=== PATIENT | male | born 1970 | race Caucasian/White ===

== ENCOUNTER 2018-05-14 12:23 | Emergency (ER) | payer MEDICAID ==
[~2018-05-14] VITALS: Ht 165.1 cm; Wt 72.7 kg
[~2018-05-14 12:23] MED LIST: GABA-531 PO; INSLAN SQ; METF-960 PO; RISP3 PO
[2018-05-14 12:42] VITALS: BP 133/91
[2018-05-14 12:54] LABS: GLUCOSE,POINT OF CARE 476 MG/DL (70-110)
== END 2018-05-14 16:02 | disposition left against medical advice (07) ==
LOC: EMS 12:24
DX: M79.601 Pain in right arm (principal); R51 Headache; F17.210 Nicotine dependence, cigarettes, uncomplicated; F19.90 Other psychoactive substance use, unspecified, uncomplicated; F11.90 Opioid use, unspecified, uncomplicated; F15.90 Other stimulant use, unspecified, uncomplicated; Z53.21 Procedure and treatment not carried out due to patient leaving prior to being seen by health care provider

== ENCOUNTER 2020-04-22 12:01 | Emergency (ER) | payer MEDICAID ==
[~2020-04-22] VITALS: Ht 170.2 cm; Wt 72.7 kg
[~2020-04-22 12:01] MED LIST changes: +BACTDSB PO; -GABA-531 PO; -METF-960 PO; -RISP3 PO; +RISP3TAB14 PO
[2020-04-22] MEDS ORDERED: GLIP5 PO (12:07)
[2020-04-22] MEDS ORDERED: METO25 PO (12:07)
[2020-04-22] MEDS ORDERED: METF-960 PO (12:07)
[2020-04-22] MEDS ORDERED: SIMV-259 PO (12:07)
[2020-04-22] MEDS ORDERED: RISP0.5T20 PO (12:07)
[2020-04-22 14:35] LABS: BASOPHILS % (AUTO) 0.6 % (0.0-2.0); EOSINOPHILS % (AUTO) 0.6 % (1.0-6.0); HEMATOCRIT 38.4 % (41-53); LYMPHOCYTES # (AUTO) 1.9 K/uL (1.0-4.8); LYMPHOCYTES % (AUTO) 18.3 % (22.0-44.0); MEAN CORPUSCULAR HEMOGLOBIN 30.5 pg (26.0-34.0); MEAN CORPUSCULAR HGB CONC 33.8 G/dL (31.0-37.0); MEAN CORPUSCULAR VOLUME 90 fL (80-100); MONOCYTES # (AUTO) 0.8 K/uL (0.1-1.0); MONOCYTES % (AUTO) 7.6 % (2.0-9.0); NEUTROPHILS # (AUTO) 7.4 K/uL (1.8-7.7); NEUTROPHILS % (AUTO) 72.9 % (40.0-70.0); PLATELET COUNT (AUTO) 315 K/uL (150-450); RED BLOOD CELL COUNT(AUTO) 4.26 MIL/uL (4.50-5.90); RED CELL DISTRIBUTION WIDTH 14.1 % (11.5-14.5)
[2020-04-22] MEDS ORDERED: SODIUM CHLORIDE 0.9% 2,200 ML IV ONE (14:42)
[2020-04-22] MEDS ORDERED: 0.9% SODIUM CHLORIDE 10 ML SYRINGE IVP PRN (14:45)
[2020-04-22 14:58] LABS: ALANINE AMINOTRANSFERASE 24 U/L (12-78); ALBUMIN 4.2 g/dL (3.4-5.0); ALKALINE PHOSPHATASE 91 U/L (46-116); ANION GAP 7 mmol/L (8-16); ASPARTATE AMINOTRANSFERASE 19 U/L (15-37); BILIRUBIN,TOTAL 0.5 mg/dL (0.1-1.0); CALCIUM, TOTAL 9.2 mg/dL (8.8-10.5); CARBON DIOXIDE 30 mmol/L (22-29); CHLORIDE 91 mmol/L (98-107); CREATININE 1.21 mg/dL (0.60-1.30); GLOMERULAR FILTR. RATE CALC > 60 mL/min (>60); SODIUM SERUM 128 mmol/L (136-145); TOTAL PROTEIN, SERUM 8.5 g/dL (6.4-8.2); UREA NITROGEN, BLOOD 16 mg/dL (7-18)
[2020-04-22] MEDS ORDERED: HALOPERIDOL LACTATE 5 MG/ML VIAL IM ONE (15:00)
[2020-04-22] MEDS ORDERED: LORazepam 2 MG/ML VIAL IM ONE (15:00)
[2020-04-22] MEDS ORDERED: DiphenhydrAMINE HCL 50 MG/ML VIAL IM ONE (15:00)
[2020-04-22 15:03] LABS: GLUCOSE,RANDOM 440 mg/dL (70-110)
[2020-04-22 15:17] LABS: INR 0.9 (0.9-1.1); PROTHROMBIN TIME 9.8 SEC (9.4-11.6)
[2020-04-22 15:26] LABS: B-TYPE NATRIURETIC PEPTIDE 11 pg/mL (0-100)
[2020-04-22 15:28] LABS: ACETONE,BLOOD NEGATIVE (NEGATIVE)
[2020-04-22 15:34] LABS: CREATINE KINASE, TOTAL ONLY 357 U/L (39-308)
[2020-04-22] MEDS ORDERED: INSULIN REGULAR, HUMAN 100 UNITS/ML SQ ONE (15:45)
[2020-04-22 16:13] LABS: GLUCOSE,POINT OF CARE 313 MG/DL (70-110)
[2020-04-22 16:43] LABS: APPEARANCE,URINE CLEAR (CLEAR); BILIRUBIN,URINE NEGATIVE (NEGATIVE); GLUCOSE, URINE (UA) >=1000 mg/dL (NEGATIVE); KETONES,URINE TRACE mg/dL (NEGATIVE); LEUKOCYTE ESTERASE ,URINE NEGATIVE (NEGATIVE); NITRATE,URINE NEGATIVE (NEGATIVE); OCCULT BLOOD,URINE NEGATIVE (NEGATIVE); PH,URINE 5.5 (5.0-8.0); PROTEIN,URINE NEGATIVE (NEGATIVE); UROBILINOGEN,URINE 0.2 mg/dL (<=1.0)
[2020-04-22 16:53] LABS: BACTERIA,URINE Rare /HPF (None Seen); RBC,URINE 0-2 /HPF (0-2); SQUAMOUS EPITHELIAL CELL,UR Rare /LPF (None Seen); WBC,URINE 0-2 /HPF (0-5)
[2020-04-22 16:55] LABS: AMPHET/METH SCREEN,URINE POSITIVE (NEGATIVE); BARBITURATE SCREEN, URINE NEGATIVE (NEGATIVE); BENZODIAZEPINES SCREEN,URINE NEGATIVE (NEGATIVE); CANNABINOID SCREEN,URINE NEGATIVE (NEGATIVE); COCAINE SCREEN,URINE NEGATIVE (NEGATIVE); METHADONE SCREEN, URINE NEGATIVE (NEGATIVE); OPIATE SCREEN,URINE NEGATIVE (NEGATIVE)
[2020-04-22 16:56] LABS: PHENCYCLIDINE SCREEN,URINE NEGATIVE (NEGATIVE)
[2020-04-22 18:04] VITALS: BP 138/80
[2020-04-22 19:34] LABS: GLUCOSE,POINT OF CARE 263 MG/DL (70-110)
== END 2020-04-22 18:44 | disposition home or self-care (01) ==
LOC: EMS 12:06
DX: E11.65 Type 2 diabetes mellitus with hyperglycemia (principal); E11.621 Type 2 diabetes mellitus with foot ulcer; E78.00 Pure hypercholesterolemia, unspecified; F17.210 Nicotine dependence, cigarettes, uncomplicated; F15.90 Other stimulant use, unspecified, uncomplicated; F11.90 Opioid use, unspecified, uncomplicated; Z79.84 Long term (current) use of oral hypoglycemic drugs; Z79.899 Other long term (current) drug therapy
CPT/HCPCS: 36415; 71045; 80053; 80307; 81001; 82009; 82550; 82962; 83880; 84484; 85025; 85610; 93005; 96360; 96372; 99285; J1815; 96361; 96374

== ENCOUNTER 2021-11-09 13:27 | Emergency (ER) | payer OTHER ==
[~2021-11-09] VITALS: Ht 160 cm; Wt 72.7 kg
[~2021-11-09 13:27] MED LIST changes: -BACTDSB PO; +GLIP5 PO; -INSLAN SQ; +METF-1211 PO; +METO25 PO; +RISP0.5T39 PO; -RISP3TAB14 PO; +SIMV-259 PO
[2021-11-09 14:05] LABS: BASOPHILS % (AUTO) 0.5 % (0.0-2.0); EOSINOPHILS % (AUTO) 1.3 % (1.0-6.0); HEMOGLOBIN 14.6 g/dL (13.5-17.5); LYMPHOCYTES # (AUTO) 1.4 K/uL (1.0-4.8); LYMPHOCYTES % (AUTO) 17.4 % (22.0-44.0); MEAN CORPUSCULAR HEMOGLOBIN 30.3 pg (26.0-34.0); MEAN CORPUSCULAR HGB CONC 34.1 G/dL (31.0-37.0); MEAN CORPUSCULAR VOLUME 89 fL (80-100); MONOCYTES # (AUTO) 0.5 K/uL (0.1-1.0); MONOCYTES % (AUTO) 6.8 % (2.0-9.0); NEUTROPHILS # (AUTO) 5.9 K/uL (1.8-7.7); PLATELET COUNT (AUTO) 267 K/uL (150-450); RED BLOOD CELL COUNT(AUTO) 4.84 MIL/uL (4.50-5.90)
[2021-11-09 14:14] LABS: ANION GAP 11 mmol/L (8-16); CALCIUM, TOTAL 9.1 mg/dL (8.8-10.5); CARBON DIOXIDE 25 mmol/L (22-29); CHLORIDE 103 mmol/L (98-107); GLOMERULAR FILTR. RATE CALC > 60 mL/min (>60); GLUCOSE,RANDOM 120 mg/dL (70-110); POTASSIUM 4.1 mmol/L (3.5-5.1); SODIUM SERUM 139 mmol/L (136-145); UREA NITROGEN, BLOOD 6 mg/dL (7-18)
[2021-11-09 14:20] LABS: ALANINE AMINOTRANSFERASE 15 U/L (12-78); ALBUMIN 3.7 g/dL (3.4-5.0); ALKALINE PHOSPHATASE 109 U/L (46-116); ASPARTATE AMINOTRANSFERASE 17 U/L (15-37); BILIRUBIN,TOTAL 0.3 mg/dL (0.1-1.0); TOTAL PROTEIN, SERUM 7.9 g/dL (6.4-8.2)
[2021-11-09] MEDS ORDERED: DiphenhydrAMINE HCL 25 MG CAPSULE PO ONE (15:45)
[2021-11-09 15:55] VITALS: BP 134/84
== END 2021-11-09 16:26 | disposition home or self-care (01) ==
LOC: EMS 13:27
DX: F20.9 Schizophrenia, unspecified (principal); E11.9 Type 2 diabetes mellitus without complications; E78.00 Pure hypercholesterolemia, unspecified; I10 Essential (primary) hypertension; F17.210 Nicotine dependence, cigarettes, uncomplicated; F12.90 Cannabis use, unspecified, uncomplicated; F19.90 Other psychoactive substance use, unspecified, uncomplicated; Z79.84 Long term (current) use of oral hypoglycemic drugs; Z88.8 Allergy status to other drugs, medicaments and biological substances
CPT/HCPCS: 36415; 80053; 85025; 99284; G0480

== ENCOUNTER 2023-03-23 14:55 | Inpatient (IN) | payer MEDICAID, OTHER ==
[~2023-03-23] VITALS: Ht 157.5 cm; Wt 83.0 kg
[~2023-03-23 14:55] MED LIST changes: -GLIP5 PO; +GLIP5TAB16 PO
[2023-03-23 15:52] LABS: BASOPHILS % (AUTO) 0.4 % (0.0-2.0); EOSINOPHILS % (AUTO) 1.1 % (1.0-6.0); HEMOGLOBIN 13.9 g/dL (13.5-17.5); LYMPHOCYTES # (AUTO) 1.4 K/uL (1.0-4.8); LYMPHOCYTES % (AUTO) 22.9 % (22.0-44.0); MEAN CORPUSCULAR HEMOGLOBIN 31.6 pg (26.0-34.0); MEAN CORPUSCULAR HGB CONC 33.9 G/dL (31.0-37.0); MEAN CORPUSCULAR VOLUME 93 fL (80-100); MONOCYTES # (AUTO) 0.4 K/uL (0.1-1.0); MONOCYTES % (AUTO) 6.6 % (2.0-9.0); NEUTROPHILS # (AUTO) 4.3 K/uL (1.8-7.7); PLATELET COUNT (AUTO) 209 K/uL (150-450); RED CELL DISTRIBUTION WIDTH 13.7 % (11.5-14.5); WHITE BLOOD COUNT (AUTO) 6.2 K/uL (4.5-11.0)
[2023-03-23 16:03] LABS: ANION GAP 10 mmol/L (8-16); CALCIUM, TOTAL 8.7 mg/dL (8.8-10.5); CARBON DIOXIDE 25 mmol/L (22-29); CHLORIDE 100 mmol/L (98-107); CREATININE 1.03 mg/dL (0.60-1.30); GLOMERULAR FILTR. RATE CALC > 60 mL/min (>60); GLUCOSE,RANDOM 216 mg/dL (70-110); POTASSIUM 3.9 mmol/L (3.5-5.1); SODIUM SERUM 135 mmol/L (136-145); UREA NITROGEN, BLOOD 10 mg/dL (7-18)
[2023-03-23 16:08] LABS: ALCOHOL, BLOOD (SERUM) < 3 mg/dL (0-10)
[2023-03-23 16:09] LABS: ALANINE AMINOTRANSFERASE 15 U/L (12-78); ALBUMIN 3.8 g/dL (3.4-5.0); ALKALINE PHOSPHATASE 67 U/L (46-116); ASPARTATE AMINOTRANSFERASE 18 U/L (15-37); BILIRUBIN,TOTAL 0.4 mg/dL (0.1-1.0); TOTAL PROTEIN, SERUM 7.1 g/dL (6.4-8.2)
[2023-03-23 16:45] LABS: COVID AG,FIA SOURCE NASOPHARYNGEAL
[2023-03-23] MEDS: LORazepam 2 MG TABLET PO ONE (16:57)
[2023-03-23] MEDS: RisperiDONE 1 MG TABLET PO ONE (16:58)
[2023-03-23 17:05] LABS: SARS-COV2 (COVID) ANTIGEN,FIA Negative (Negative)
[2023-03-23] MEDS ORDERED: HALOPERIDOL 5 MG TABLET PO PRN (17:30)
[2023-03-23 21:26] LABS: GLUCOMETER DEV NAME(LOC) BV3N.; GLUCOSE,POINT OF CARE 193 MG/DL (70-110)
[2023-03-24 08:30] VITALS: BP 114/60; PULSE 95; RESP 17; TEMP 97.2; O2SAT 98
[2023-03-24] MEDS: METOPROLOL TARTRATE 25 MG TABLET PO SCH (08:49)
[2023-03-24 09:11] VITALS: BP 114/60; PULSE 95; RESP 17; TEMP 97.2; O2SAT 98
[2023-03-24] MEDS: LORazepam 2 MG TABLET PO PRN (10:02)
[2023-03-24] MEDS ORDERED: QUET200T30 PO (13:50)
[2023-03-24] MEDS ORDERED: DIVA-112 PO (13:50)
[2023-03-24] MEDS ORDERED: METO-408 PO (14:11)
[2023-03-24] MEDS ORDERED: INSU100V45 SQ (14:11)
[2023-03-24] MEDS ORDERED: ATOR40TA71 PO (14:11)
[2023-03-24] MEDS ORDERED: METF-446 PO (14:11)
[2023-03-24] MEDS ORDERED: DULA0.75 SQ (14:11)
[2023-03-24] MEDS ORDERED: LISI10TA24 PO (14:11)
[2023-03-24] MEDS ORDERED: INSU100I26 SQ (14:11)
[2023-03-24] MEDS: MetFORMIN HCL 500 MG TABLET PO SCH (16:48)
[2023-03-24] MEDS ORDERED: ONDANSETRON HCL 4 MG TABLET PO PRN (18:45)
[2023-03-24] MEDS ORDERED: GuaiFENesin/D-METHORPHAN [SUGAR-FREE] 200-20MG/10 ML SYRUP UDCUP PO PRN (18:45)
[2023-03-24] MEDS ORDERED: CloNIDine HCL 0.1 MG TABLET PO PRN (18:45)
[2023-03-24] MEDS: SIMVASTATIN 10 MG TABLET PO SCH (20:36)
[2023-03-24] MEDS: QUEtiapine FUMARATE 200 MG TABLET PO SCH (20:37)
[2023-03-24] MEDS: DIVALPROEX SODIUM 500 MG DR TABLET PO SCH (20:37)
[2023-03-24 20:46] VITALS: BP 123/65; PULSE 82; RESP 18; TEMP 97.7; O2SAT 98
[2023-03-25] MEDS: GlipiZIDE 5 MG TABLET PO SCH (06:45)
[2023-03-25 06:51] LABS: GLUCOMETER DEV NAME(LOC) BV3N.; GLUCOSE,POINT OF CARE 208 MG/DL (70-110)
[2023-03-25 07:48] LABS: HEMOGLOBIN A1C 8.8 % (3.8-5.6)
[2023-03-25 08:04] LABS: CHOL/HDL RATIO 2.7 (4.2-7.3); THYROID STIMULATING HORMONE 1.22 uIU/mL (0.36-3.74)
[2023-03-25 09:01] VITALS: BP 114/76; PULSE 89; RESP 20; TEMP 98.2; O2SAT 99
[2023-03-25 20:19] VITALS: BP 109/65; PULSE 102; RESP 19; TEMP 98.2; O2SAT 97
[2023-03-26 06:51] LABS: GLUCOMETER DEV NAME(LOC) BV3N.; GLUCOSE,POINT OF CARE 253 MG/DL (70-110)
[2023-03-26 08:16] VITALS: BP 111/60; PULSE 92; RESP 17; TEMP 98; O2SAT 99
[2023-03-26 20:15] VITALS: BP 111/64; PULSE 70; RESP 18; TEMP 98; O2SAT 97
[2023-03-27] MEDS: PNEUMOCOCCAL VACCINE POLYVALENT 0.5 ML VIAL [PPSV23] IM. ONE (06:30)
[2023-03-27 06:36] LABS: GLUCOMETER DEV NAME(LOC) BV3N.; GLUCOSE,POINT OF CARE 140 MG/DL (70-110)
[2023-03-27 09:09] VITALS: BP 109/56; PULSE 80; RESP 17; TEMP 97.2; O2SAT 99
[2023-03-27 20:22] VITALS: BP 104/71; PULSE 92; RESP 18; TEMP 98.2; O2SAT 97
[2023-03-28 06:36] LABS: GLUCOMETER DEV NAME(LOC) BV3N.; GLUCOSE,POINT OF CARE 119 MG/DL (70-110)
[2023-03-28 09:04] VITALS: BP 110/67; PULSE 95; RESP 19; TEMP 98.1; O2SAT 98
[2023-03-28] MEDS ORDERED: ChlorproMAZINE HCL 50 MG/2 ML AMP ONE (15:47)
[2023-03-28] MEDS ORDERED: LORazepam 2 MG/ML VIAL ONE (15:47)
[2023-03-28] MEDS: LORazepam 2 MG/ML VIAL IM ONE (16:00)
[2023-03-28] MEDS: ChlorproMAZINE HCL 50 MG/2 ML AMP IM ONE (16:00)
[2023-03-28 20:30] VITALS: RESP 18
[2023-03-29 06:31] LABS: GLUCOMETER DEV NAME(LOC) BV3N.; GLUCOSE,POINT OF CARE 206 MG/DL (70-110)
[2023-03-29 08:47] VITALS: BP 110/66; PULSE 80; RESP 17; TEMP 97.8; O2SAT 99
[2023-03-29] MEDS: ZOLPIDEM TARTRATE 10 MG TABLET PO PRN (20:48)
[2023-03-29 21:19] VITALS: BP 105/83; PULSE 100; TEMP 98; O2SAT 98
[2023-03-30 08:47] VITALS: BP 101/71; PULSE 105; RESP 17; TEMP 97.6; O2SAT 98
[2023-03-30] MEDS: NICOTINE 14 MG/24 HOUR PATCH TD PRN (16:39)
[2023-03-30 21:01] VITALS: BP 130/70; PULSE 90; RESP 18; TEMP 97.8; O2SAT 97
[2023-03-31 08:22] VITALS: BP 105/74; PULSE 93; RESP 17; TEMP 97.9; O2SAT 100
[2023-03-31 20:55] VITALS: BP 109/75; PULSE 104; RESP 18; TEMP 98; O2SAT 98
[2023-04-01 06:51] LABS: GLUCOMETER DEV NAME(LOC) BV3N.; GLUCOSE,POINT OF CARE 260 MG/DL (70-110)
[2023-04-01 08:40] VITALS: BP 112/70; PULSE 70; RESP 18; TEMP 98; O2SAT 95
[2023-04-01 11:06] LABS: GLUCOMETER DEV NAME(LOC) BV3N.; GLUCOSE,POINT OF CARE 329 MG/DL (70-110)
[2023-04-01 16:51] LABS: GLUCOMETER DEV NAME(LOC) BV3N.; GLUCOSE,POINT OF CARE 287 MG/DL (70-110)
[2023-04-01 20:39] VITALS: BP 118/73; PULSE 100; RESP 18; TEMP 97; O2SAT 99
[2023-04-02 06:31] LABS: GLUCOMETER DEV NAME(LOC) BV3N.; GLUCOSE,POINT OF CARE 196 MG/DL (70-110)
[2023-04-02 08:27] VITALS: RESP 18
[2023-04-02 08:39] VITALS: BP 110/68; PULSE 91; RESP 18; TEMP 98.1; O2SAT 99
[2023-04-02 16:46] LABS: GLUCOMETER DEV NAME(LOC) BV3N.; GLUCOSE,POINT OF CARE 281 MG/DL (70-110)
[2023-04-02 22:49] VITALS: BP 128/70; PULSE 96; RESP 18; TEMP 98.2
[2023-04-03 06:41] LABS: GLUCOMETER DEV NAME(LOC) BV3N.; GLUCOSE,POINT OF CARE 106 MG/DL (70-110)
[2023-04-03 08:30] VITALS: BP 112/77; PULSE 100; RESP 17; TEMP 96.8; O2SAT 98
[2023-04-03 20:22] VITALS: BP 136/82; PULSE 93; RESP 18; TEMP 97.7; O2SAT 98
[2023-04-04 06:46] LABS: GLUCOMETER DEV NAME(LOC) BV3N.; GLUCOSE,POINT OF CARE 124 MG/DL (70-110)
[2023-04-04 08:37] VITALS: BP 143/79; PULSE 94; RESP 17; TEMP 97.6; O2SAT 99
[2023-04-04 16:51] LABS: GLUCOMETER DEV NAME(LOC) BV3N.; GLUCOSE,POINT OF CARE 165 MG/DL (70-110)
[2023-04-04 20:20] VITALS: BP 118/70; PULSE 90; RESP 18; TEMP 98; O2SAT 98
[2023-04-05 06:41] LABS: GLUCOMETER DEV NAME(LOC) BV3N.; GLUCOSE,POINT OF CARE 217 MG/DL (70-110)
[2023-04-05 08:16] VITALS: BP 101/60; PULSE 82; RESP 17; TEMP 97.5; O2SAT 99
[2023-04-05] MEDS: LORazepam 2 MG TABLET PO PRN (16:34)
[2023-04-05 20:21] VITALS: BP 127/76; PULSE 76; RESP 18; TEMP 97.6; O2SAT 98
[2023-04-05] MEDS: ZOLPIDEM TARTRATE 10 MG TABLET PO PRN (20:32)
[2023-04-06 06:32] LABS: GLUCOMETER DEV NAME(LOC) BV3N.; GLUCOSE,POINT OF CARE 202 MG/DL (70-110)
[2023-04-06 08:07] VITALS: BP 103/76; PULSE 83; RESP 18; TEMP 97.6; O2SAT 98
[2023-04-06 08:27] VITALS: BP 103/76; PULSE 83; RESP 18; TEMP 97.6; O2SAT 98
[2023-04-06] MEDS: ACETAMINOPHEN 325 MG TABLET PO PRN (17:25)
[2023-04-06 17:26] VITALS: RESP 18
[2023-04-06 18:25] VITALS: RESP 18
[2023-04-06 20:33] VITALS: BP 112/71; PULSE 111; RESP 19; TEMP 97.6; O2SAT 100
[2023-04-07 06:41] LABS: GLUCOMETER DEV NAME(LOC) BV3N.; GLUCOSE,POINT OF CARE 122 MG/DL (70-110)
[2023-04-07 08:22] VITALS: BP 109/69; PULSE 80; RESP 17; TEMP 97.8; O2SAT 96
[2023-04-07 17:06] LABS: GLUCOMETER DEV NAME(LOC) BV3N.; GLUCOSE,POINT OF CARE 326 MG/DL (70-110)
[2023-04-07 20:48] VITALS: BP 108/69; PULSE 100; RESP 17; TEMP 97.8; O2SAT 98
[2023-04-08 06:41] LABS: GLUCOMETER DEV NAME(LOC) BV3N.; GLUCOSE,POINT OF CARE 117 MG/DL (70-110)
[2023-04-08 08:16] VITALS: BP 118/74; PULSE 85; RESP 17; TEMP 98.1; O2SAT 100
[2023-04-08] MEDS: ALBUTEROL SULFATE HFA 90 MCG/PUFF 8 GM INHALER IH PRN (16:38)
[2023-04-08 20:20] VITALS: BP 124/77; PULSE 95; RESP 18; TEMP 97.8; O2SAT 98
[2023-04-09 06:21] LABS: GLUCOMETER DEV NAME(LOC) BV3N.; GLUCOSE,POINT OF CARE 110 MG/DL (70-110)
[2023-04-09 20:35] VITALS: BP 115/72; PULSE 91; RESP 18; TEMP 97.9
[2023-04-10 06:36] LABS: GLUCOMETER DEV NAME(LOC) BV3N.; GLUCOSE,POINT OF CARE 124 MG/DL (70-110)
[2023-04-10 08:20] VITALS: BP 100/60; PULSE 78; RESP 17; TEMP 97.7; O2SAT 99
[2023-04-10 20:23] VITALS: BP 129/75; PULSE 90; RESP 19; TEMP 97.8; O2SAT 100
[2023-04-11 05:57] LABS: GLUCOMETER DEV NAME(LOC) BV3N.; GLUCOSE,POINT OF CARE 112 MG/DL (70-110)
[2023-04-11 08:27] VITALS: BP 134/76; PULSE 88; RESP 18; TEMP 98.1; O2SAT 100
[2023-04-11 09:43] VITALS: BP 102/69; PULSE 101; RESP 18; TEMP 97.6; O2SAT 98
[2023-04-11 17:01] LABS: GLUCOMETER DEV NAME(LOC) BV3N.; GLUCOSE,POINT OF CARE 162 MG/DL (70-110)
[2023-04-11 20:14] VITALS: BP 136/81; PULSE 84; RESP 18; TEMP 97.9; O2SAT 97
[2023-04-12 06:12] LABS: GLUCOMETER DEV NAME(LOC) BV3N.; GLUCOSE,POINT OF CARE 181 MG/DL (70-110)
[2023-04-12 08:07] VITALS: BP 102/70; PULSE 78; RESP 17; TEMP 97; O2SAT 99
[2023-04-12 21:17] VITALS: BP 119/82; PULSE 80; RESP 18; TEMP 97.2
[2023-04-13 06:36] LABS: GLUCOMETER DEV NAME(LOC) BV3N.; GLUCOSE,POINT OF CARE 203 MG/DL (70-110)
[2023-04-13 08:37] VITALS: BP 118/63; PULSE 71; RESP 17; TEMP 98.1; O2SAT 100
[2023-04-13 17:06] LABS: GLUCOMETER DEV NAME(LOC) BV3N.; GLUCOSE,POINT OF CARE 340 MG/DL (70-110)
[2023-04-13 20:21] VITALS: BP 134/82; PULSE 95; RESP 18; TEMP 97.6; O2SAT 98
[2023-04-14 06:22] LABS: GLUCOMETER DEV NAME(LOC) BV3N.; GLUCOSE,POINT OF CARE 133 MG/DL (70-110)
[2023-04-14 08:42] VITALS: BP 100/60; PULSE 83; RESP 17; TEMP 97.3; O2SAT 95
[2023-04-14 11:47] LABS: GLUCOMETER DEV NAME(LOC) BV3N.; GLUCOSE,POINT OF CARE 156 MG/DL (70-110)
[2023-04-14 20:25] VITALS: BP 140/76; PULSE 70; RESP 18; TEMP 98; O2SAT 98
[2023-04-15 06:21] LABS: GLUCOMETER DEV NAME(LOC) BV3N.; GLUCOSE,POINT OF CARE 191 MG/DL (70-110)
[2023-04-15 08:37] VITALS: BP 133/76; PULSE 81; RESP 18; TEMP 97.8; O2SAT 99
[2023-04-15 08:38] VITALS: BP 133/76; PULSE 81; RESP 20; TEMP 97.8; O2SAT 99
[2023-04-15 20:32] VITALS: BP 139/78; PULSE 80; RESP 19; TEMP 97.6; O2SAT 97
[2023-04-16 06:26] LABS: GLUCOMETER DEV NAME(LOC) BV3N.; GLUCOSE,POINT OF CARE 171 MG/DL (70-110)
[2023-04-16 11:51] LABS: GLUCOMETER DEV NAME(LOC) BV3N.; GLUCOSE,POINT OF CARE 168 MG/DL (70-110)
[2023-04-16 14:59] VITALS: BP 116/73; PULSE 85; RESP 18; TEMP 97.8; O2SAT 98
[2023-04-16 16:46] LABS: GLUCOMETER DEV NAME(LOC) BV3N.; GLUCOSE,POINT OF CARE 186 MG/DL (70-110)
[2023-04-16 20:16] VITALS: BP 139/74; PULSE 62; RESP 18; TEMP 97.5; O2SAT 100
[2023-04-17 06:36] LABS: GLUCOMETER DEV NAME(LOC) BV3N.; GLUCOSE,POINT OF CARE 126 MG/DL (70-110)
[2023-04-17 08:22] VITALS: BP 111/71; PULSE 100; RESP 17; TEMP 97.3; O2SAT 97
[2023-04-17 20:20] VITALS: BP 110/68; PULSE 90; RESP 18; TEMP 98.2; O2SAT 98
[2023-04-18 06:42] LABS: GLUCOMETER DEV NAME(LOC) BV3N.; GLUCOSE,POINT OF CARE 215 MG/DL (70-110)
[2023-04-18 08:38] VITALS: BP 107/66; PULSE 100; RESP 18; TEMP 98.1; O2SAT 96
[2023-04-18 16:46] LABS: GLUCOMETER DEV NAME(LOC) BV3N.; GLUCOSE,POINT OF CARE 249 MG/DL (70-110)
[2023-04-19 02:12] VITALS: BP 136/76; PULSE 83; RESP 18; TEMP 98.3; O2SAT 99
[2023-04-19 06:56] LABS: GLUCOMETER DEV NAME(LOC) BV3N.; GLUCOSE,POINT OF CARE 173 MG/DL (70-110)
[2023-04-19 08:26] VITALS: BP 104/72; PULSE 93; RESP 17; TEMP 97.7; O2SAT 100
[2023-04-19 20:00] VITALS: BP 118/80; PULSE 79; RESP 18; TEMP 97.2
[2023-04-20 06:11] LABS: GLUCOMETER DEV NAME(LOC) BV3N.; GLUCOSE,POINT OF CARE 191 MG/DL (70-110)
[2023-04-20 08:27] VITALS: BP 100/68; PULSE 77; RESP 17; TEMP 97.9; O2SAT 99
[2023-04-20 17:11] LABS: GLUCOMETER DEV NAME(LOC) BV3N.; GLUCOSE,POINT OF CARE 239 MG/DL (70-110)
[2023-04-20 20:12] VITALS: BP 116/71; PULSE 78; RESP 19; TEMP 97.6; O2SAT 100
[2023-04-21 06:26] LABS: GLUCOMETER DEV NAME(LOC) BV3N.; GLUCOSE,POINT OF CARE 162 MG/DL (70-110)
[2023-04-21 08:32] VITALS: BP 120/72; PULSE 100; RESP 18; TEMP 97.9; O2SAT 99
[2023-04-21 17:01] LABS: GLUCOMETER DEV NAME(LOC) BV3N.; GLUCOSE,POINT OF CARE 236 MG/DL (70-110)
[2023-04-21 21:29] VITALS: BP 137/63; PULSE 77; RESP 18; TEMP 98.4; O2SAT 99
[2023-04-22 06:52] LABS: GLUCOMETER DEV NAME(LOC) BV3N.; GLUCOSE,POINT OF CARE 121 MG/DL (70-110)
[2023-04-22 08:32] VITALS: BP 100/58; PULSE 74; RESP 17; TEMP 97.5; O2SAT 98
[2023-04-22 20:15] VITALS: BP 131/77; PULSE 100; RESP 18; TEMP 97.8; O2SAT 97
[2023-04-23 06:21] LABS: GLUCOMETER DEV NAME(LOC) BV3N.; GLUCOSE,POINT OF CARE 162 MG/DL (70-110)
[2023-04-23 08:25] VITALS: BP 118/80; PULSE 88; RESP 16; TEMP 97.3; O2SAT 100
[2023-04-23 16:46] LABS: GLUCOMETER DEV NAME(LOC) BV3N.; GLUCOSE,POINT OF CARE 210 MG/DL (70-110)
[2023-04-23 20:21] VITALS: BP 135/78; PULSE 85; RESP 20; TEMP 97.6; O2SAT 99
[2023-04-24 06:21] LABS: GLUCOMETER DEV NAME(LOC) BV3N.; GLUCOSE,POINT OF CARE 113 MG/DL (70-110)
[2023-04-24 08:43] VITALS: BP 128/76; PULSE 80; RESP 16; TEMP 97.8; O2SAT 100
[2023-04-24 17:01] LABS: GLUCOMETER DEV NAME(LOC) BV3N.; GLUCOSE,POINT OF CARE 181 MG/DL (70-110)
[2023-04-24 20:27] VITALS: BP 145/65; PULSE 90; RESP 20; TEMP 97.6; O2SAT 100
[2023-04-25 06:35] LABS: GLUCOMETER DEV NAME(LOC) BV3N.; GLUCOSE,POINT OF CARE 136 MG/DL (70-110)
[2023-04-25 08:24] VITALS: BP 102/66; PULSE 75; RESP 17; TEMP 98; O2SAT 100
[2023-04-25 16:21] LABS: GLUCOMETER DEV NAME(LOC) POC.BV; POC SARS-COV2 AG, FIA NEGATIVE (NEGATIVE)
[2023-04-25 17:16] LABS: GLUCOMETER DEV NAME(LOC) BV3N.; GLUCOSE,POINT OF CARE 228 MG/DL (70-110)
[2023-04-25 20:25] VITALS: BP 142/84; PULSE 88; RESP 18; TEMP 98.2; O2SAT 97
[2023-04-26] VITALS (7 sets, daily range): BP systolic 100–114; BP diastolic 60; PULSE 78–80; RESP 17; TEMP 97.4–98.4; O2SAT 99–100
[2023-04-26 06:37] LABS: GLUCOMETER DEV NAME(LOC) BV3N.; GLUCOSE,POINT OF CARE 197 MG/DL (70-110)
[2023-04-26 16:35] LABS: GLUCOMETER DEV NAME(LOC) BV3N.; GLUCOSE,POINT OF CARE 205 MG/DL (70-110)
[2023-04-27] VITALS (8 sets, daily range): BP systolic 110–139; BP diastolic 66; PULSE 67–91; RESP 17–20; TEMP 97.6–98.7; O2SAT 97–100
[2023-04-27 17:31] LABS: GLUCOMETER DEV NAME(LOC) BV3N.; GLUCOSE,POINT OF CARE 139 MG/DL (70-110)
[2023-04-28] VITALS (8 sets, daily range): BP systolic 102–117; BP diastolic 68–77; PULSE 82–83; RESP 17–18; TEMP 97.8–98.6; O2SAT 98–100
[2023-04-28 06:32] LABS: GLUCOMETER DEV NAME(LOC) BV3N.; GLUCOSE,POINT OF CARE 227 MG/DL (70-110)
[2023-04-28 16:46] LABS: GLUCOMETER DEV NAME(LOC) BV3N.; GLUCOSE,POINT OF CARE 234 MG/DL (70-110)
[2023-04-29] VITALS (8 sets, daily range): BP systolic 139–143; BP diastolic 75–78; PULSE 82–83; RESP 16–18; TEMP 97.2–98.3; O2SAT 98–100
[2023-04-29 03:11] LABS: GLUCOMETER DEV NAME(LOC) POC.BV; POC SARS-COV2 AG, FIA NEGATIVE (NEGATIVE)
[2023-04-29 06:26] LABS: GLUCOMETER DEV NAME(LOC) BV3N.; GLUCOSE,POINT OF CARE 137 MG/DL (70-110)
[2023-04-29 17:01] LABS: GLUCOMETER DEV NAME(LOC) BV3N.; GLUCOSE,POINT OF CARE 158 MG/DL (70-110)
[2023-04-30] VITALS (7 sets, daily range): RESP 18; TEMP 97.2–98; O2SAT 99
[2023-04-30 06:26] LABS: GLUCOMETER DEV NAME(LOC) BV3N.; GLUCOSE,POINT OF CARE 213 MG/DL (70-110)
[2023-04-30 16:36] LABS: GLUCOMETER DEV NAME(LOC) BV3N.; GLUCOSE,POINT OF CARE 248 MG/DL (70-110)
[2023-04-30 21:41] LABS: GLUCOMETER DEV NAME(LOC) BV3N.; GLUCOSE,POINT OF CARE 248 MG/DL (70-110)
[2023-05-01] VITALS (8 sets, daily range): BP systolic 103–140; BP diastolic 60–77; PULSE 81–88; RESP 17–20; TEMP 97.1–98.2; O2SAT 95–100
[2023-05-01 07:06] LABS: GLUCOMETER DEV NAME(LOC) BV3N.; GLUCOSE,POINT OF CARE 192 MG/DL (70-110)
[2023-05-01 16:51] LABS: GLUCOMETER DEV NAME(LOC) BV3N.; GLUCOSE,POINT OF CARE 383 MG/DL (70-110)
[2023-05-02 02:06] VITALS: TEMP 97.8
[2023-05-02 06:00] LABS: GLUCOMETER DEV NAME(LOC) BV3N.; GLUCOSE,POINT OF CARE 178 MG/DL (70-110)
[2023-05-02 06:07] VITALS: TEMP 97.9
[2023-05-02 08:52] VITALS: BP 111/62; PULSE 83; RESP 17; TEMP 97.3; O2SAT 100
[2023-05-02 14:00] VITALS: TEMP 97.7
[2023-05-02] MEDS: TUBERCULIN, PURIFIED PROTEIN DERIVATIVE 5 TU/0.1 ML SYRINGE ID ONE (14:18)
[2023-05-02 20:17] VITALS: BP 127/82; PULSE 89; RESP 19; TEMP 97.7; O2SAT 98
[2023-05-03 06:16] LABS: GLUCOMETER DEV NAME(LOC) BV3N.; GLUCOSE,POINT OF CARE 151 MG/DL (70-110)
[2023-05-03 08:41] VITALS: BP 100/64; PULSE 85; RESP 17; TEMP 97.9; O2SAT 100
[2023-05-03 17:16] LABS: GLUCOMETER DEV NAME(LOC) BV3N.; GLUCOSE,POINT OF CARE 255 MG/DL (70-110)
[2023-05-03 20:16] VITALS: BP 109/66; PULSE 108; RESP 19; TEMP 98.2; O2SAT 98
[2023-05-04 06:31] LABS: GLUCOMETER DEV NAME(LOC) BV3N.; GLUCOSE,POINT OF CARE 166 MG/DL (70-110)
[2023-05-04 08:22] VITALS: BP 119/73; PULSE 100; RESP 17; TEMP 98; O2SAT 96
[2023-05-04 20:25] VITALS: BP 118/80; PULSE 95; RESP 20; TEMP 98.2; O2SAT 98
[2023-05-05 06:27] LABS: GLUCOMETER DEV NAME(LOC) BV3N.; GLUCOSE,POINT OF CARE 283 MG/DL (70-110)
[2023-05-05 08:23] VITALS: BP 114/65; PULSE 62; RESP 17; TEMP 97.9; O2SAT 100
[2023-05-05 20:44] VITALS: BP 125/69; PULSE 89; RESP 18; TEMP 97.5; O2SAT 99
[2023-05-06 06:36] LABS: GLUCOMETER DEV NAME(LOC) BV3N.; GLUCOSE,POINT OF CARE 208 MG/DL (70-110)
[2023-05-06 08:14] VITALS: BP 120/72; PULSE 82; RESP 17; TEMP 97.5; O2SAT 99
[2023-05-06 17:11] LABS: GLUCOMETER DEV NAME(LOC) BV3N.; GLUCOSE,POINT OF CARE 172 MG/DL (70-110)
[2023-05-06 20:34] VITALS: BP 130/73; PULSE 98; RESP 18; TEMP 97.8; O2SAT 97
[2023-05-07 06:46] LABS: GLUCOMETER DEV NAME(LOC) BV3N.; GLUCOSE,POINT OF CARE 189 MG/DL (70-110)
[2023-05-07 08:30] VITALS: BP 110/74; PULSE 100; RESP 17; TEMP 97.6; O2SAT 99
[2023-05-07 20:24] VITALS: BP 120/67; PULSE 94; RESP 18; TEMP 97.8; O2SAT 97
[2023-05-08 06:26] LABS: GLUCOMETER DEV NAME(LOC) BV3N.; GLUCOSE,POINT OF CARE 142 MG/DL (70-110)
[2023-05-08 08:31] VITALS: BP 106/65; PULSE 70; RESP 17; TEMP 98; O2SAT 99
[2023-05-08 20:19] VITALS: BP 139/83; PULSE 100; RESP 18; TEMP 98; O2SAT 100
[2023-05-09 06:11] LABS: GLUCOMETER DEV NAME(LOC) BV3N.; GLUCOSE,POINT OF CARE 147 MG/DL (70-110)
[2023-05-09 08:53] VITALS: BP 101/66; PULSE 60; RESP 17; TEMP 98; O2SAT 98
[2023-05-09 21:39] VITALS: BP 107/73; PULSE 70; RESP 18; TEMP 97.8; O2SAT 96
[2023-05-10 06:36] LABS: GLUCOMETER DEV NAME(LOC) BV3S.; GLUCOSE,POINT OF CARE 133 MG/DL (70-110)
[2023-05-10 08:04] VITALS: BP 107/64; PULSE 95; RESP 17; TEMP 97.8; O2SAT 99
[2023-05-10 22:10] VITALS: BP 122/71; PULSE 80; RESP 18; TEMP 97.8; O2SAT 98
[2023-05-11 05:46] LABS: GLUCOMETER DEV NAME(LOC) BV3N.; GLUCOSE,POINT OF CARE 194 MG/DL (70-110)
[2023-05-11 08:14] VITALS: BP 102/62; PULSE 86; RESP 18; TEMP 97.7; O2SAT 97
[2023-05-11 20:29] VITALS: BP 140/89; PULSE 94; RESP 18; TEMP 97.7; O2SAT 99
[2023-05-12] MEDS: TUBERCULIN, PURIFIED PROTEIN DERIVATIVE 5 TU/0.1 ML SYRINGE ID ONE ×3 (04:15)
[2023-05-12 06:25] LABS: GLUCOMETER DEV NAME(LOC) BV3N.; GLUCOSE,POINT OF CARE 114 MG/DL (70-110)
[2023-05-12 08:08] VITALS: BP 113/79; PULSE 101; RESP 17; TEMP 97.9; O2SAT 96
[2023-05-12 17:42] LABS: GLUCOMETER DEV NAME(LOC) BV3N.; GLUCOSE,POINT OF CARE 271 MG/DL (70-110)
[2023-05-12 22:55] VITALS: RESP 18; TEMP 97.8
[2023-05-13 06:46] LABS: GLUCOMETER DEV NAME(LOC) BV3N.; GLUCOSE,POINT OF CARE 106 MG/DL (70-110)
[2023-05-13 08:21] VITALS: BP 113/72; PULSE 96; RESP 18; TEMP 98.1; O2SAT 96
[2023-05-13 20:47] VITALS: BP 115/75; PULSE 92; RESP 18; TEMP 97.4; O2SAT 98
[2023-05-14 06:41] LABS: GLUCOMETER DEV NAME(LOC) BV2S.; GLUCOSE,POINT OF CARE 138 MG/DL (70-110)
[2023-05-14 08:21] VITALS: BP 104/70; PULSE 82; RESP 17; TEMP 97.9; O2SAT 97
[2023-05-14 20:33] VITALS: BP 113/81; PULSE 86; RESP 18; TEMP 97.9; O2SAT 96
[2023-05-15 08:56] LABS: GLUCOMETER DEV NAME(LOC) BV2S.; GLUCOSE,POINT OF CARE 142 MG/DL (70-110)
[2023-05-15 09:10] VITALS: BP 117/70; PULSE 95; RESP 17; TEMP 97.8; O2SAT 99
[2023-05-15] MEDS: LORazepam 2 MG TABLET PO PRN (09:56)
[2023-05-15 16:31] LABS: GLUCOMETER DEV NAME(LOC) BV2S.; GLUCOSE,POINT OF CARE 306 MG/DL (70-110)
[2023-05-15 20:19] VITALS: BP 143/74; PULSE 98; RESP 18; TEMP 98.1; O2SAT 96
[2023-05-16 07:47] VITALS: BP 128/81; PULSE 86; RESP 18; TEMP 97.4; O2SAT 99
[2023-05-16 11:18] VITALS: BP 128/81; PULSE 86; RESP 18; TEMP 97.4; O2SAT 98
[2023-05-16 16:17] VITALS: BP 117/82; PULSE 95; RESP 17; TEMP 97.6; O2SAT 99
[2023-05-16 17:21] LABS: GLUCOMETER DEV NAME(LOC) BV2S.; GLUCOSE,POINT OF CARE 125 MG/DL (70-110)
[2023-05-16 20:13] VITALS: BP 117/82; PULSE 95; RESP 17; TEMP 97.6; O2SAT 99
[2023-05-17 06:36] LABS: GLUCOMETER DEV NAME(LOC) BV2S.; GLUCOSE,POINT OF CARE 191 MG/DL (70-110)
[2023-05-17 08:27] VITALS: BP 122/69; PULSE 98; RESP 18; TEMP 97.8; O2SAT 99
[2023-05-17 16:51] LABS: GLUCOMETER DEV NAME(LOC) BV2S.; GLUCOSE,POINT OF CARE 209 MG/DL (70-110)
[2023-05-17 20:03] VITALS: BP 132/85; PULSE 79; RESP 18; TEMP 98.1; O2SAT 97
[2023-05-18 07:16] LABS: GLUCOMETER DEV NAME(LOC) BV2S.; GLUCOSE,POINT OF CARE 186 MG/DL (70-110)
[2023-05-18 08:08] VITALS: BP 100/62; PULSE 100; RESP 18; TEMP 98; O2SAT 98
[2023-05-18] MEDS ORDERED: ChlorproMAZINE HCL 50 MG/2 ML AMP ONE (12:37)
[2023-05-18] MEDS ORDERED: DiphenhydrAMINE HCL 50 MG/ML VIAL ONE (12:37)
[2023-05-18] MEDS ORDERED: LORazepam 2 MG/ML VIAL ONE (12:37)
[2023-05-18] MEDS: LORazepam 2 MG/ML VIAL IM ONE (14:35)
[2023-05-18] MEDS: DiphenhydrAMINE HCL 50 MG/ML VIAL IM ONE (14:36)
[2023-05-18] MEDS: ChlorproMAZINE HCL 50 MG/2 ML AMP IM ONE (14:36)
[2023-05-18 20:42] VITALS: BP 126/63; PULSE 100; RESP 17; TEMP 98; O2SAT 99
[2023-05-18 21:06] LABS: GLUCOMETER DEV NAME(LOC) BV2S.; GLUCOSE,POINT OF CARE 203 MG/DL (70-110)
[2023-05-19 05:51] LABS: GLUCOMETER DEV NAME(LOC) BV2S.; GLUCOSE,POINT OF CARE 271 MG/DL (70-110)
[2023-05-19 08:24] VITALS: BP 107/89; PULSE 77; RESP 18; TEMP 97.5; O2SAT 95
[2023-05-19 16:41] LABS: GLUCOMETER DEV NAME(LOC) BV3N.; GLUCOSE,POINT OF CARE 222 MG/DL (70-110)
[2023-05-19 20:08] VITALS: BP 113/64; PULSE 80; RESP 20; TEMP 97.8
[2023-05-20 06:21] LABS: GLUCOMETER DEV NAME(LOC) BV3N.; GLUCOSE,POINT OF CARE 177 MG/DL (70-110)
[2023-05-20 10:14] VITALS: BP 132/76; PULSE 76; RESP 19; TEMP 96.4; O2SAT 98
[2023-05-20] MEDS: ZOLPIDEM TARTRATE 10 MG TABLET PO PRN (20:04)
[2023-05-20 20:13] VITALS: BP 110/70; PULSE 80; RESP 18; TEMP 97.8; O2SAT 97
[2023-05-21 06:36] LABS: GLUCOMETER DEV NAME(LOC) BV3N.; GLUCOSE,POINT OF CARE 163 MG/DL (70-110)
[2023-05-21 12:51] VITALS: BP 129/67; PULSE 100; RESP 18; TEMP 97.6; O2SAT 95
[2023-05-21 16:46] LABS: GLUCOMETER DEV NAME(LOC) BV3N.; GLUCOSE,POINT OF CARE 280 MG/DL (70-110)
[2023-05-21 20:09] VITALS: BP 122/75; PULSE 107; RESP 18; TEMP 97.6; O2SAT 99
[2023-05-22 06:56] LABS: GLUCOMETER DEV NAME(LOC) BV3N.; GLUCOSE,POINT OF CARE 155 MG/DL (70-110)
[2023-05-22 08:38] VITALS: BP 150/84; PULSE 109; RESP 20; TEMP 97; O2SAT 100
[2023-05-22] MEDS: DiphenhydrAMINE HCL 50 MG/ML VIAL IM ONE (12:23)
[2023-05-22] MEDS: ChlorproMAZINE HCL 50 MG/2 ML AMP IM ONE (12:23)
[2023-05-22] MEDS: LORazepam 2 MG/ML VIAL IM ONE (12:24)
[2023-05-22 20:18] VITALS: BP 140/78; PULSE 104; RESP 18; TEMP 97.6; O2SAT 98
[2023-05-23 05:56] LABS: GLUCOMETER DEV NAME(LOC) BV3N.; GLUCOSE,POINT OF CARE 96 MG/DL (70-110)
[2023-05-23] MEDS: QUEtiapine FUMARATE 25 MG TABLET PO PRN (08:04)
[2023-05-23] MEDS: LORazepam 2 MG/ML VIAL IM ONE (10:04)
[2023-05-23] MEDS: ChlorproMAZINE HCL 50 MG/2 ML AMP IM ONE (10:05)
[2023-05-23] MEDS: DiphenhydrAMINE HCL 50 MG/ML VIAL IM ONE (10:05)
[2023-05-23 17:06] LABS: GLUCOMETER DEV NAME(LOC) BV3N.; GLUCOSE,POINT OF CARE 191 MG/DL (70-110)
[2023-05-23 22:39] VITALS: RESP 18; TEMP 97.8
[2023-05-24 06:41] LABS: GLUCOMETER DEV NAME(LOC) BV3N.; GLUCOSE,POINT OF CARE 172 MG/DL (70-110)
[2023-05-24 08:25] VITALS: BP 129/79; PULSE 99; RESP 18; TEMP 98.4; O2SAT 97
[2023-05-25 02:02] VITALS: RESP 18; TEMP 97.9
[2023-05-25 08:40] VITALS: BP 125/73; PULSE 89; RESP 17; TEMP 97.8; O2SAT 99
[2023-05-25 16:31] LABS: GLUCOMETER DEV NAME(LOC) BV3N.; GLUCOSE,POINT OF CARE 231 MG/DL (70-110)
[2023-05-25 20:12] VITALS: BP 142/83; PULSE 96; RESP 18; TEMP 97.8; O2SAT 98
[2023-05-26 06:31] LABS: GLUCOMETER DEV NAME(LOC) BV3N.; GLUCOSE,POINT OF CARE 184 MG/DL (70-110)
[2023-05-26] MEDS ORDERED: ChlorproMAZINE HCL 50 MG/2 ML AMP ONE (08:21)
[2023-05-26] MEDS ORDERED: LORazepam 2 MG/ML VIAL ONE (08:21)
[2023-05-26] MEDS ORDERED: DiphenhydrAMINE HCL 50 MG/ML VIAL ONE (08:21)
[2023-05-26] MEDS: ChlorproMAZINE HCL 50 MG/2 ML AMP IM ONE (09:19)
[2023-05-26] MEDS: DiphenhydrAMINE HCL 50 MG/ML VIAL IM ONE (09:19)
[2023-05-26] MEDS: LORazepam 2 MG/ML VIAL IM ONE (09:19)
[2023-05-26 10:02] VITALS: BP 110/56; PULSE 86; RESP 18; TEMP 97.5; O2SAT 96
[2023-05-26 17:06] LABS: GLUCOMETER DEV NAME(LOC) BV3N.; GLUCOSE,POINT OF CARE 344 MG/DL (70-110)
[2023-05-26 20:10] VITALS: BP 125/73; PULSE 80; RESP 19; TEMP 97.6; O2SAT 100
[2023-05-27 06:31] LABS: GLUCOMETER DEV NAME(LOC) BV3N.; GLUCOSE,POINT OF CARE 223 MG/DL (70-110)
[2023-05-27 08:07] VITALS: BP 109/64; PULSE 93; RESP 18; TEMP 97.9; O2SAT 97
[2023-05-27 08:30] VITALS: BP 99/64; PULSE 93; RESP 17; TEMP 97; O2SAT 97
[2023-05-27 16:36] LABS: GLUCOMETER DEV NAME(LOC) BV3N.; GLUCOSE,POINT OF CARE 186 MG/DL (70-110)
[2023-05-27 20:00] VITALS: BP 129/75; PULSE 89; RESP 18; TEMP 97.5; O2SAT 100
[2023-05-27 20:57] LABS: GLUCOMETER DEV NAME(LOC) BV3N.; GLUCOSE,POINT OF CARE 312 MG/DL (70-110)
[2023-05-28 06:23] LABS: GLUCOMETER DEV NAME(LOC) BV3N.; GLUCOSE,POINT OF CARE 218 MG/DL (70-110)
[2023-05-28 08:16] VITALS: BP 116/67; PULSE 83; RESP 17; TEMP 97.6; O2SAT 98
[2023-05-28 16:56] LABS: GLUCOMETER DEV NAME(LOC) BV3N.; GLUCOSE,POINT OF CARE 422 MG/DL (70-110)
[2023-05-28 21:01] VITALS: BP 115/75; PULSE 86; RESP 17; TEMP 98; O2SAT 100
[2023-05-29 06:28] LABS: GLUCOMETER DEV NAME(LOC) BV3N.; GLUCOSE,POINT OF CARE 204 MG/DL (70-110)
[2023-05-29] MEDS: MetFORMIN HCL 500 MG TABLET PO SCH (06:38)
[2023-05-29 08:14] VITALS: BP 138/90; PULSE 90; RESP 17; TEMP 98; O2SAT 98
[2023-05-29 16:51] LABS: GLUCOMETER DEV NAME(LOC) BV3N.; GLUCOSE,POINT OF CARE 216 MG/DL (70-110)
[2023-05-29 20:11] VITALS: BP 140/69; PULSE 111; RESP 18; TEMP 97.6; O2SAT 96
[2023-05-30 06:11] LABS: GLUCOMETER DEV NAME(LOC) BV3N.; GLUCOSE,POINT OF CARE 118 MG/DL (70-110)
[2023-05-30 08:06] VITALS: BP 121/69; PULSE 105; RESP 17; TEMP 98; O2SAT 99
[2023-05-30 08:19] VITALS: BP 121/69; PULSE 105; RESP 17; TEMP 98; O2SAT 99
[2023-05-30 17:26] LABS: GLUCOMETER DEV NAME(LOC) BV3N.; GLUCOSE,POINT OF CARE 189 MG/DL (70-110)
[2023-05-30 20:11] VITALS: BP 120/80; PULSE 100; RESP 18; TEMP 98; O2SAT 96
[2023-05-31 08:27] VITALS: BP 125/68; PULSE 96; RESP 18; TEMP 97.6; O2SAT 100
[2023-05-31 16:52] LABS: GLUCOMETER DEV NAME(LOC) BV3N.; GLUCOSE,POINT OF CARE 319 MG/DL (70-110)
[2023-05-31 20:12] VITALS: BP 124/68; PULSE 104; RESP 18; TEMP 97.8; O2SAT 98
[2023-06-01 05:26] LABS: GLUCOMETER DEV NAME(LOC) BV3N.; GLUCOSE,POINT OF CARE 213 MG/DL (70-110)
[2023-06-01 08:36] VITALS: BP 100/65; PULSE 87; RESP 17; TEMP 97.6; O2SAT 98
[2023-06-01 17:31] LABS: GLUCOMETER DEV NAME(LOC) BV3N.; GLUCOSE,POINT OF CARE 138 MG/DL (70-110)
[2023-06-01 21:35] VITALS: BP 109/65; PULSE 80; RESP 16; TEMP 97.4; O2SAT 99
[2023-06-02 06:36] LABS: GLUCOMETER DEV NAME(LOC) BV3N.; GLUCOSE,POINT OF CARE 170 MG/DL (70-110)
[2023-06-02 08:29] VITALS: RESP 18
[2023-06-02 17:26] LABS: GLUCOMETER DEV NAME(LOC) BV3N.; GLUCOSE,POINT OF CARE 162 MG/DL (70-110)
[2023-06-02 20:08] VITALS: BP 141/80; PULSE 96; RESP 18; TEMP 97.9
[2023-06-03 06:41] LABS: GLUCOMETER DEV NAME(LOC) BV3N.; GLUCOSE,POINT OF CARE 164 MG/DL (70-110)
[2023-06-03 08:05] VITALS: BP 120/65; PULSE 99; RESP 18; TEMP 97.8; O2SAT 100
[2023-06-03 17:06] LABS: GLUCOMETER DEV NAME(LOC) BV3N.; GLUCOSE,POINT OF CARE 174 MG/DL (70-110)
[2023-06-04 01:58] VITALS: BP 110/66; PULSE 82; RESP 18; TEMP 97.8; O2SAT 98
[2023-06-04 06:31] LABS: GLUCOMETER DEV NAME(LOC) BV3N.; GLUCOSE,POINT OF CARE 171 MG/DL (70-110)
[2023-06-04 08:09] VITALS: BP 139/80; PULSE 81; RESP 20; TEMP 97.8; O2SAT 98
[2023-06-04 17:16] LABS: GLUCOMETER DEV NAME(LOC) BV3N.; GLUCOSE,POINT OF CARE 189 MG/DL (70-110)
[2023-06-04 20:56] VITALS: BP 144/83; PULSE 84; RESP 18; TEMP 97.8; O2SAT 99
[2023-06-05 06:31] LABS: GLUCOMETER DEV NAME(LOC) BV3N.; GLUCOSE,POINT OF CARE 212 MG/DL (70-110)
[2023-06-05 08:54] VITALS: BP 121/70; PULSE 101; RESP 18; TEMP 98; O2SAT 95
[2023-06-05 17:11] LABS: GLUCOMETER DEV NAME(LOC) BV3N.; GLUCOSE,POINT OF CARE 127 MG/DL (70-110)
[2023-06-05 21:35] VITALS: BP 144/72; PULSE 85; RESP 16; TEMP 97.5; O2SAT 98
[2023-06-06 06:36] LABS: GLUCOMETER DEV NAME(LOC) BV3N.; GLUCOSE,POINT OF CARE 166 MG/DL (70-110)
[2023-06-06 14:24] VITALS: BP 100/84; PULSE 76; RESP 18; TEMP 97.5; O2SAT 98
[2023-06-06 20:40] VITALS: BP 139/89; PULSE 89; RESP 16; TEMP 97.5; O2SAT 100
[2023-06-07 06:21] LABS: GLUCOMETER DEV NAME(LOC) BV3N.; GLUCOSE,POINT OF CARE 168 MG/DL (70-110)
[2023-06-07 08:26] VITALS: BP 100/58; PULSE 85; RESP 17; TEMP 97.8; O2SAT 97
[2023-06-07 20:10] VITALS: BP 123/71; PULSE 106; RESP 18; TEMP 97.8; O2SAT 99
[2023-06-07 20:56] LABS: GLUCOMETER DEV NAME(LOC) BV3N.; GLUCOSE,POINT OF CARE 221 MG/DL (70-110)
[2023-06-08 06:21] LABS: GLUCOMETER DEV NAME(LOC) BV3N.; GLUCOSE,POINT OF CARE 232 MG/DL (70-110)
[2023-06-08 08:08] VITALS: BP 106/65; PULSE 104; RESP 17; TEMP 97.7; O2SAT 100
[2023-06-08 16:41] LABS: GLUCOMETER DEV NAME(LOC) BV3N.; GLUCOSE,POINT OF CARE 295 MG/DL (70-110)
[2023-06-08 20:19] VITALS: BP 105/62; PULSE 106; RESP 18; TEMP 97.6; O2SAT 97
[2023-06-09 07:06] LABS: GLUCOMETER DEV NAME(LOC) BV3N.; GLUCOSE,POINT OF CARE 145 MG/DL (70-110)
[2023-06-09 08:18] VITALS: BP 116/66; PULSE 65; RESP 18; TEMP 98; O2SAT 95
[2023-06-09 08:19] VITALS: BP 116/66; PULSE 64; RESP 17; TEMP 98; O2SAT 95
[2023-06-09 20:14] VITALS: BP 130/74; PULSE 102; RESP 20; TEMP 97.6; O2SAT 99
[2023-06-10 06:22] LABS: GLUCOMETER DEV NAME(LOC) BV3N.; GLUCOSE,POINT OF CARE 231 MG/DL (70-110)
[2023-06-10 08:00] VITALS: BP 117/69; PULSE 86; RESP 17; TEMP 97.4; O2SAT 100
[2023-06-10 17:45] LABS: GLUCOMETER DEV NAME(LOC) BV3N.; GLUCOSE,POINT OF CARE 223 MG/DL (70-110)
[2023-06-10 20:50] VITALS: BP 136/90; PULSE 99; RESP 16; TEMP 96.5; O2SAT 100
[2023-06-11 07:01] LABS: GLUCOMETER DEV NAME(LOC) BV3N.; GLUCOSE,POINT OF CARE 207 MG/DL (70-110)
[2023-06-11 15:21] LABS: GLUCOMETER DEV NAME(LOC) BV3N.; GLUCOSE,POINT OF CARE 309 MG/DL (70-110)
[2023-06-11 18:11] VITALS: BP 128/88; PULSE 88; RESP 18; TEMP 98.5; O2SAT 98
[2023-06-11 20:24] VITALS: BP 118/80; PULSE 75; RESP 17; TEMP 97.5; O2SAT 96
[2023-06-12 06:41] LABS: GLUCOMETER DEV NAME(LOC) BV3N.; GLUCOSE,POINT OF CARE 196 MG/DL (70-110)
[2023-06-12 08:40] VITALS: BP 133/73; PULSE 67; RESP 18; TEMP 97.4; O2SAT 99
[2023-06-12 16:56] LABS: GLUCOMETER DEV NAME(LOC) BV3N.; GLUCOSE,POINT OF CARE 327 MG/DL (70-110)
[2023-06-12 20:13] VITALS: BP 129/77; PULSE 90; RESP 18; TEMP 97.6; O2SAT 99
[2023-06-13 06:16] LABS: GLUCOMETER DEV NAME(LOC) BV3N.; GLUCOSE,POINT OF CARE 209 MG/DL (70-110)
[2023-06-13 08:01] VITALS: BP 131/76; PULSE 100; RESP 18; TEMP 97.5; O2SAT 96
[2023-06-13] MEDS ORDERED: ChlorproMAZINE HCL 50 MG/2 ML AMP ONE (13:03)
[2023-06-13] MEDS ORDERED: LORazepam 2 MG/ML VIAL ONE (13:03)
[2023-06-13] MEDS ORDERED: DiphenhydrAMINE HCL 50 MG/ML VIAL ONE (13:03)
[2023-06-13] MEDS: LORazepam 2 MG/ML VIAL IM ONE (13:12)
[2023-06-13] MEDS: ChlorproMAZINE HCL 50 MG/2 ML AMP IM ONE (13:12)
[2023-06-13] MEDS: DiphenhydrAMINE HCL 50 MG/ML VIAL IM ONE (13:12)
[2023-06-13 17:16] LABS: GLUCOMETER DEV NAME(LOC) BV3N.; GLUCOSE,POINT OF CARE 282 MG/DL (70-110)
[2023-06-13 20:14] VITALS: BP 134/70; PULSE 95; RESP 18; TEMP 97.8; O2SAT 99
[2023-06-14 06:47] LABS: GLUCOMETER DEV NAME(LOC) BV3N.; GLUCOSE,POINT OF CARE 246 MG/DL (70-110)
[2023-06-14 08:16] VITALS: RESP 18
[2023-06-14 09:50] VITALS: BP 107/66; PULSE 91; RESP 18; TEMP 97.8; O2SAT 97
[2023-06-14 17:31] LABS: GLUCOMETER DEV NAME(LOC) BV3N.; GLUCOSE,POINT OF CARE 221 MG/DL (70-110)
[2023-06-14 20:08] VITALS: BP 114/62; PULSE 96; RESP 18; TEMP 97.6; O2SAT 98
[2023-06-15 06:26] LABS: GLUCOMETER DEV NAME(LOC) BV3N.; GLUCOSE,POINT OF CARE 178 MG/DL (70-110)
[2023-06-15 08:08] VITALS: BP 113/73; PULSE 62; RESP 17; TEMP 97.3; O2SAT 100
[2023-06-15 17:51] LABS: GLUCOMETER DEV NAME(LOC) BV3N.; GLUCOSE,POINT OF CARE 269 MG/DL (70-110)
[2023-06-15 20:05] VITALS: BP 118/68; PULSE 70; RESP 18; TEMP 97.6; O2SAT 97
[2023-06-16 06:26] LABS: GLUCOMETER DEV NAME(LOC) BV3N.; GLUCOSE,POINT OF CARE 127 MG/DL (70-110)
[2023-06-16 08:25] VITALS: BP 110/73; PULSE 78; RESP 18; TEMP 98; O2SAT 97
[2023-06-16 17:41] LABS: GLUCOMETER DEV NAME(LOC) BV3N.; GLUCOSE,POINT OF CARE 154 MG/DL (70-110)
[2023-06-16 20:43] VITALS: BP 117/75; PULSE 78; RESP 18; TEMP 98
[2023-06-17 06:16] LABS: GLUCOMETER DEV NAME(LOC) BV3N.; GLUCOSE,POINT OF CARE 115 MG/DL (70-110)
[2023-06-17 08:29] VITALS: BP 149/65; PULSE 102; RESP 20; TEMP 98.2
[2023-06-17 17:12] LABS: GLUCOMETER DEV NAME(LOC) BV3N.; GLUCOSE,POINT OF CARE 269 MG/DL (70-110)
[2023-06-17 20:10] VITALS: BP 122/68; PULSE 90; RESP 18; TEMP 98; O2SAT 98
[2023-06-18 06:56] LABS: GLUCOMETER DEV NAME(LOC) BV3N.; GLUCOSE,POINT OF CARE 113 MG/DL (70-110)
[2023-06-18 16:56] LABS: GLUCOMETER DEV NAME(LOC) BV3N.; GLUCOSE,POINT OF CARE 208 MG/DL (70-110)
[2023-06-18 21:27] VITALS: RESP 16
[2023-06-19 07:06] LABS: GLUCOMETER DEV NAME(LOC) BV3N.; GLUCOSE,POINT OF CARE 163 MG/DL (70-110)
[2023-06-19 08:26] VITALS: BP 131/77; PULSE 85; RESP 17; TEMP 98; O2SAT 97
[2023-06-19 17:21] LABS: GLUCOMETER DEV NAME(LOC) BV3N.; GLUCOSE,POINT OF CARE 284 MG/DL (70-110)
[2023-06-19 20:09] VITALS: BP 142/73; PULSE 106; RESP 18; TEMP 97.7; O2SAT 99
[2023-06-20 08:23] VITALS: BP 110/72; PULSE 82; RESP 18; TEMP 97.7; O2SAT 99
[2023-06-20 17:01] LABS: GLUCOMETER DEV NAME(LOC) BV3N.; GLUCOSE,POINT OF CARE 373 MG/DL (70-110)
[2023-06-20 20:18] VITALS: BP 139/81; PULSE 97; RESP 18; TEMP 97.7; O2SAT 98
[2023-06-21 06:21] LABS: GLUCOMETER DEV NAME(LOC) BV3N.; GLUCOSE,POINT OF CARE 259 MG/DL (70-110)
[2023-06-21 09:12] VITALS: BP 103/65; PULSE 90; RESP 17; TEMP 98.1; O2SAT 97
[2023-06-21 17:05] LABS: GLUCOMETER DEV NAME(LOC) BV3N.; GLUCOSE,POINT OF CARE 166 MG/DL (70-110)
[2023-06-21 20:34] VITALS: BP 139/85; PULSE 106; RESP 18; TEMP 97.3; O2SAT 99
[2023-06-22 06:26] LABS: GLUCOMETER DEV NAME(LOC) BV3N.; GLUCOSE,POINT OF CARE 192 MG/DL (70-110)
[2023-06-22 08:40] VITALS: BP 116/71; PULSE 72; RESP 16; TEMP 97.8; O2SAT 100
[2023-06-22 20:48] VITALS: BP 140/83; PULSE 108; RESP 18; TEMP 97.6; O2SAT 96
[2023-06-23 06:21] LABS: GLUCOMETER DEV NAME(LOC) BV3N.; GLUCOSE,POINT OF CARE 214 MG/DL (70-110)
[2023-06-23 08:24] VITALS: RESP 18
[2023-06-23 09:53] LABS: APPEARANCE,URINE CLEAR (CLEAR); BILIRUBIN,URINE NEGATIVE (NEGATIVE); COLOR,URINE LIGHT YELLOW (YELLOW); GLUCOSE, URINE (UA) 70-100 mg/dL (NEGATIVE); KETONES,URINE NEGATIVE (NEGATIVE); LEUKOCYTE ESTERASE ,URINE NEGATIVE (NEGATIVE); NITRATE,URINE NEGATIVE (NEGATIVE); OCCULT BLOOD,URINE NEGATIVE (NEGATIVE); PH,URINE 6.5 (5.0-8.0); PH,URINE DRUG SCREEN 6.5 (5.0-8.0); PROTEIN,URINE NEGATIVE (NEGATIVE); SPECIFIC GRAVITIY, URINE 1.014 (1.003-1.030); UROBILINOGEN,URINE <=1.0 mg/dL (<=1.0)
[2023-06-23 09:58] LABS: AMPHET/METH SCREEN,URINE NEGATIVE (NEGATIVE); BARBITURATE SCREEN, URINE NEGATIVE (NEGATIVE); BENZODIAZEPINES SCREEN,URINE NEGATIVE (NEGATIVE); CANNABINOID SCREEN,URINE NEGATIVE (NEGATIVE); COCAINE SCREEN,URINE NEGATIVE (NEGATIVE); METHADONE SCREEN, URINE NEGATIVE (NEGATIVE); OPIATE SCREEN,URINE NEGATIVE (NEGATIVE); PHENCYCLIDINE SCREEN,URINE NEGATIVE (NEGATIVE)
[2023-06-23 10:00] LABS: ALCOHOL, URINE DRUG SCREEN NEGATIVE (NEGATIVE)
[2023-06-23 10:27] LABS: BACTERIA,URINE None Seen /HPF (None Seen); RBC,URINE None Seen /HPF (0-2); WBC,URINE None Seen /HPF (0-5)
[2023-06-23 18:21] LABS: GLUCOMETER DEV NAME(LOC) BV3N.; GLUCOSE,POINT OF CARE 215 MG/DL (70-110)
[2023-06-23 20:14] VITALS: BP 118/68; PULSE 104; RESP 18; TEMP 97.8; O2SAT 97
[2023-06-24 06:27] LABS: GLUCOMETER DEV NAME(LOC) BV3N.; GLUCOSE,POINT OF CARE 145 MG/DL (70-110)
[2023-06-24 09:13] VITALS: BP 100/58; PULSE 79; RESP 20; TEMP 97.8; O2SAT 99
[2023-06-24 20:08] VITALS: BP 105/72; PULSE 90; RESP 20; TEMP 97.7; O2SAT 100
[2023-06-25 08:27] VITALS: BP 116/74; PULSE 100; RESP 16; TEMP 97.6; O2SAT 97
[2023-06-25 17:06] LABS: GLUCOMETER DEV NAME(LOC) BV3N.; GLUCOSE,POINT OF CARE 192 MG/DL (70-110)
[2023-06-25 20:06] VITALS: BP 150/92; PULSE 88; RESP 18; TEMP 97.6; O2SAT 99
[2023-06-26 08:04] VITALS: BP 104/64; PULSE 72; RESP 18; TEMP 96.8; O2SAT 99
[2023-06-26 20:12] VITALS: BP 141/75; PULSE 99; RESP 20; TEMP 97.8; O2SAT 97
[2023-06-27 08:37] VITALS: BP 112/73; PULSE 93; RESP 17; TEMP 97.3; O2SAT 100
[2023-06-27 20:09] VITALS: BP 120/64; PULSE 80; RESP 18; TEMP 97.6; O2SAT 98
[2023-06-28 08:12] VITALS: BP 107/64; PULSE 82; RESP 17; TEMP 97.7; O2SAT 98
[2023-06-28 20:19] VITALS: BP 116/68; PULSE 95; RESP 18; TEMP 97.8; O2SAT 100
[2023-06-29 08:25] VITALS: BP 112/87; PULSE 61; RESP 17; TEMP 97.7; O2SAT 100
[2023-06-29 20:07] VITALS: BP 131/83; PULSE 106; RESP 18; TEMP 97.6; O2SAT 98
[2023-06-30 08:15] VITALS: BP 131/61; PULSE 76; RESP 17; TEMP 98; O2SAT 96
[2023-07-01 04:40] VITALS: RESP 18; TEMP 98
[2023-07-01 08:14] VITALS: BP 100/60; PULSE 66; RESP 17; TEMP 97.3; O2SAT 95
[2023-07-01 20:10] VITALS: BP 126/82; PULSE 105; RESP 20; TEMP 97.8; O2SAT 100
[2023-07-02 08:12] VITALS: BP 121/75; PULSE 80; RESP 18; TEMP 97.7; O2SAT 99
[2023-07-02 20:38] VITALS: BP 122/76; PULSE 86; RESP 18; TEMP 97.7
[2023-07-03 08:34] VITALS: BP 102/61; PULSE 73; RESP 17; TEMP 97.7; O2SAT 99
[2023-07-03 16:34] VITALS: RESP 18
[2023-07-03 20:20] VITALS: BP 114/75; PULSE 79; RESP 18; TEMP 97.7; O2SAT 97
[2023-07-04 12:47] VITALS: BP 123/85; PULSE 80; RESP 18; TEMP 97.5; O2SAT 98
[2023-07-04 20:13] VITALS: BP 118/78; PULSE 94; RESP 19; TEMP 97.6; O2SAT 97
[2023-07-05 08:38] VITALS: BP 127/76; PULSE 84; RESP 18; TEMP 97.5; O2SAT 99
[2023-07-06 00:48] VITALS: BP 132/79; PULSE 86; RESP 18; TEMP 97.9
[2023-07-06 08:06] VITALS: BP 114/74; PULSE 68; RESP 17; TEMP 97.7; O2SAT 97
[2023-07-06 20:14] VITALS: BP 124/76; PULSE 91; RESP 18; TEMP 97.6; O2SAT 96
[2023-07-07 08:35] VITALS: BP 125/70; PULSE 100; RESP 17; TEMP 98; O2SAT 96
[2023-07-07] MEDS: INFLUENZA VIRUS VACCINE QVS 2023-24 (6MO+)/PF 60 MCG/0.5 ML SYRINGE IM. ONE (19:40)
[2023-07-07 20:22] VITALS: BP 124/68; PULSE 98; RESP 20; TEMP 97.7; O2SAT 96
[2023-07-08 09:54] VITALS: BP 91/52; PULSE 70; RESP 16; TEMP 97.5; O2SAT 100
[2023-07-08 16:23] VITALS: RESP 16
[2023-07-08] MEDS: IBUPROFEN 400 MG TABLET PO PRN (16:23)
[2023-07-08 20:00] VITALS: BP 113/62; PULSE 85; RESP 16; TEMP 97.1
[2023-07-09 08:25] VITALS: BP 118/71; PULSE 98; RESP 18; TEMP 97.8; O2SAT 99
[2023-07-09 20:50] VITALS: BP 129/92; PULSE 99; RESP 18; TEMP 97.7
[2023-07-10 08:40] VITALS: BP 102/66; PULSE 81; RESP 17; TEMP 97.5; O2SAT 99
[2023-07-10 20:13] VITALS: BP 140/82; PULSE 100; RESP 18; TEMP 97.5; O2SAT 98
[2023-07-11 08:39] VITALS: BP 130/67; PULSE 63; RESP 17; TEMP 97.6; O2SAT 97
[2023-07-11 20:30] VITALS: BP 144/82; PULSE 95; RESP 19; TEMP 97.6; O2SAT 97
[2023-07-12 08:37] VITALS: BP 118/80; PULSE 79; RESP 17; TEMP 97.9; O2SAT 94
[2023-07-12] MEDS: PETROLATUM,WHITE 28 GM JELLY TP PRN (10:26)
[2023-07-12 20:11] VITALS: BP 119/69; PULSE 77; RESP 18; TEMP 97.8; O2SAT 97
[2023-07-12] MEDS: QUEtiapine FUMARATE 300 MG TABLET PO SCH (20:16)
[2023-07-12 20:30] LABS: GLUCOMETER DEV NAME(LOC) BV3N.; GLUCOSE,POINT OF CARE 162 MG/DL (70-110)
[2023-07-13 06:51] LABS: GLUCOMETER DEV NAME(LOC) BV3N.; GLUCOSE,POINT OF CARE 136 MG/DL (70-110)
[2023-07-13 07:50] LABS: BASOPHILS % (AUTO) 0.9 % (0.0-2.0); EOSINOPHILS % (AUTO) 5.1 % (1.0-6.0); HEMATOCRIT 37.2 % (41-53); HEMOGLOBIN 12.7 g/dL (13.5-17.5); LYMPHOCYTES # (AUTO) 2.2 K/uL (1.0-4.8); LYMPHOCYTES % (AUTO) 48.8 % (22.0-44.0); MEAN CORPUSCULAR HEMOGLOBIN 31.5 pg (26.0-34.0); MEAN CORPUSCULAR HGB CONC 34.3 G/dL (31.0-37.0); MEAN CORPUSCULAR VOLUME 92 fL (80-100); MONOCYTES # (AUTO) 0.4 K/uL (0.1-1.0); MONOCYTES % (AUTO) 8.2 % (2.0-9.0); NEUTROPHILS # (AUTO) 1.7 K/uL (1.8-7.7); PLATELET COUNT (AUTO) 195 K/uL (150-450); RED BLOOD CELL COUNT(AUTO) 4.04 MIL/uL (4.50-5.90); RED CELL DISTRIBUTION WIDTH 13.5 % (11.5-14.5); WHITE BLOOD COUNT (AUTO) 4.6 K/uL (4.5-11.0)
[2023-07-13 08:02] LABS: HEMOGLOBIN A1C 8.3 % (3.8-5.6)
[2023-07-13 08:07] LABS: ALANINE AMINOTRANSFERASE 28 U/L (12-78); ALBUMIN 3.2 g/dL (3.4-5.0); ALKALINE PHOSPHATASE 54 U/L (46-116); ANION GAP 4 mmol/L (8-16); ASPARTATE AMINOTRANSFERASE 22 U/L (15-37); BILIRUBIN,TOTAL 0.3 mg/dL (0.1-1.0); CALCIUM, TOTAL 8.9 mg/dL (8.8-10.5); CARBON DIOXIDE 30 mmol/L (22-29); CHLORIDE 99 mmol/L (98-107); CREATININE 0.93 mg/dL (0.60-1.30); GLOMERULAR FILTR. RATE CALC > 60 mL/min (>60); GLUCOSE,RANDOM 127 mg/dL (70-110); POTASSIUM 4.2 mmol/L (3.5-5.1); SODIUM SERUM 133 mmol/L (136-145); TOTAL PROTEIN, SERUM 6.9 g/dL (6.4-8.2); UREA NITROGEN, BLOOD 15 mg/dL (7-18)
[2023-07-13 08:36] VITALS: BP 101/62; PULSE 87; RESP 17; TEMP 97.7; O2SAT 97
[2023-07-13] MEDS: OMEPRAZOLE 20 MG CAPSULE PO SCH (08:54)
[2023-07-13] MEDS: DOCUSATE SODIUM 250 MG CAPSULE PO SCH (08:54)
[2023-07-13 16:22] VITALS: RESP 17
[2023-07-13 16:36] LABS: GLUCOMETER DEV NAME(LOC) BV3N.; GLUCOSE,POINT OF CARE 199 MG/DL (70-110)
[2023-07-13 17:22] VITALS: RESP 18
[2023-07-13 18:38] VITALS: RESP 18
[2023-07-13 19:38] VITALS: RESP 16
[2023-07-13 20:22] VITALS: BP 114/80; PULSE 82; RESP 16; TEMP 97.3; O2SAT 99
[2023-07-14 06:16] LABS: GLUCOMETER DEV NAME(LOC) BV3N.; GLUCOSE,POINT OF CARE 239 MG/DL (70-110)
[2023-07-14 08:09] VITALS: BP 110/72; PULSE 91; RESP 18; TEMP 97.5; O2SAT 100
[2023-07-14] MEDS ORDERED: LORazepam 2 MG/ML VIAL ONE (09:45)
[2023-07-14] MEDS: LORazepam 2 MG/ML VIAL IM ONE (10:09)
[2023-07-14] MEDS: DiphenhydrAMINE HCL 50 MG/ML VIAL IM ONE (10:09)
[2023-07-14] MEDS: ChlorproMAZINE HCL 50 MG/2 ML AMP IM ONE (10:10)
[2023-07-14 20:14] VITALS: RESP 18; TEMP 97.9
[2023-07-15 06:31] LABS: GLUCOMETER DEV NAME(LOC) BV3N.; GLUCOSE,POINT OF CARE 149 MG/DL (70-110)
[2023-07-15 08:03] VITALS: BP 100/63; PULSE 71; RESP 18; TEMP 97.3; O2SAT 99
[2023-07-15 16:51] LABS: GLUCOMETER DEV NAME(LOC) BV3N.; GLUCOSE,POINT OF CARE 131 MG/DL (70-110)
[2023-07-15 20:32] VITALS: BP 133/73; PULSE 110; RESP 20; TEMP 97.7; O2SAT 99
[2023-07-16 06:16] LABS: GLUCOMETER DEV NAME(LOC) BV3N.; GLUCOSE,POINT OF CARE 176 MG/DL (70-110)
[2023-07-16 08:31] VITALS: BP 116/79; PULSE 97; RESP 17; TEMP 97.7; O2SAT 100
[2023-07-16 17:11] LABS: GLUCOMETER DEV NAME(LOC) BV3N.; GLUCOSE,POINT OF CARE 200 MG/DL (70-110)
[2023-07-16 20:35] VITALS: BP 119/73; PULSE 91; RESP 18; TEMP 97.8; O2SAT 99
[2023-07-17 06:32] LABS: GLUCOMETER DEV NAME(LOC) BV3N.; GLUCOSE,POINT OF CARE 189 MG/DL (70-110)
[2023-07-17 08:21] VITALS: BP 116/71; PULSE 80; RESP 17; TEMP 97.1; O2SAT 99
[2023-07-17 20:07] VITALS: BP 131/77; PULSE 81; RESP 18; TEMP 97.5; O2SAT 100
[2023-07-17 20:26] LABS: GLUCOMETER DEV NAME(LOC) BV3N.; GLUCOSE,POINT OF CARE 206 MG/DL (70-110)
[2023-07-17] MEDS: LOPERAMIDE HCL 2 MG CAPSULE PO PRN (20:52)
[2023-07-18 06:51] LABS: GLUCOMETER DEV NAME(LOC) BV3N.; GLUCOSE,POINT OF CARE 132 MG/DL (70-110)
[2023-07-18 11:10] VITALS: BP 135/76; PULSE 76; RESP 17; TEMP 98; O2SAT 99
[2023-07-18 17:06] LABS: GLUCOMETER DEV NAME(LOC) BV3N.; GLUCOSE,POINT OF CARE 215 MG/DL (70-110)
[2023-07-18 20:30] VITALS: BP 154/91; PULSE 89; RESP 18; TEMP 97.6; O2SAT 100
[2023-07-19 06:21] LABS: GLUCOMETER DEV NAME(LOC) BV3N.; GLUCOSE,POINT OF CARE 133 MG/DL (70-110)
[2023-07-19 08:12] VITALS: BP 101/66; PULSE 76; RESP 17; TEMP 97.1; O2SAT 99
[2023-07-19 08:13] VITALS: BP 101/66; PULSE 76; RESP 17; TEMP 97.1; O2SAT 99
[2023-07-19 16:45] LABS: GLUCOMETER DEV NAME(LOC) BV3N.; GLUCOSE,POINT OF CARE 217 MG/DL (70-110)
[2023-07-19 22:08] VITALS: BP 112/63; PULSE 79; RESP 18; TEMP 97.9; O2SAT 98
[2023-07-20 06:26] LABS: GLUCOMETER DEV NAME(LOC) BV3N.; GLUCOSE,POINT OF CARE 226 MG/DL (70-110)
[2023-07-20 08:15] VITALS: BP 100/60; PULSE 82; RESP 16; TEMP 97.6; O2SAT 97
[2023-07-20 17:46] LABS: GLUCOMETER DEV NAME(LOC) BV3N.; GLUCOSE,POINT OF CARE 155 MG/DL (70-110)
[2023-07-20 20:07] VITALS: BP 138/70; PULSE 104; RESP 19; TEMP 97.8; O2SAT 96
[2023-07-21 06:31] LABS: GLUCOMETER DEV NAME(LOC) BV3N.; GLUCOSE,POINT OF CARE 147 MG/DL (70-110)
[2023-07-21 08:28] VITALS: BP 104/67; PULSE 75; RESP 17; TEMP 97.7; O2SAT 98
[2023-07-21 13:35] VITALS: BP 118/76; PULSE 109; RESP 20; TEMP 97.5; O2SAT 100
[2023-07-21 20:06] VITALS: BP 114/70; PULSE 106; RESP 20; TEMP 97.8; O2SAT 98
[2023-07-22 06:21] LABS: GLUCOMETER DEV NAME(LOC) BV3N.; GLUCOSE,POINT OF CARE 288 MG/DL (70-110)
[2023-07-22 08:18] VITALS: BP 159/92; PULSE 100; RESP 18; TEMP 97.9; O2SAT 96
[2023-07-22 16:46] LABS: GLUCOMETER DEV NAME(LOC) BV3N.; GLUCOSE,POINT OF CARE 283 MG/DL (70-110)
[2023-07-22 20:02] VITALS: BP 139/77; PULSE 100; RESP 19; TEMP 97.8; O2SAT 97
[2023-07-23 06:36] LABS: GLUCOMETER DEV NAME(LOC) BV3N.; GLUCOSE,POINT OF CARE 232 MG/DL (70-110)
[2023-07-23 09:08] VITALS: BP 121/68; PULSE 81; RESP 18; TEMP 97.9; O2SAT 97
[2023-07-23 14:16] VITALS: BP 120/68; PULSE 80; RESP 18; TEMP 97.8; O2SAT 97
[2023-07-23 15:16] VITALS: RESP 18
[2023-07-23 23:10] VITALS: RESP 18; TEMP 97.5
[2023-07-23 23:36] LABS: GLUCOMETER DEV NAME(LOC) BV3N.; GLUCOSE,POINT OF CARE 189 MG/DL (70-110)
[2023-07-24 06:31] LABS: GLUCOMETER DEV NAME(LOC) BV3N.; GLUCOSE,POINT OF CARE 233 MG/DL (70-110)
[2023-07-24] MEDS ORDERED: LORazepam 2 MG/ML VIAL ONE (08:21)
[2023-07-24] MEDS ORDERED: DiphenhydrAMINE HCL 50 MG/ML VIAL ONE (08:22)
[2023-07-24] MEDS ORDERED: HALOPERIDOL LACTATE 5 MG/ML VIAL ONE (08:22)
[2023-07-24 08:35] VITALS: BP 107/59; PULSE 93; RESP 17; TEMP 97.9; O2SAT 98
[2023-07-24 16:51] LABS: GLUCOMETER DEV NAME(LOC) BV3N.; GLUCOSE,POINT OF CARE 242 MG/DL (70-110)
[2023-07-25 06:41] LABS: GLUCOMETER DEV NAME(LOC) BV3N.; GLUCOSE,POINT OF CARE 138 MG/DL (70-110)
[2023-07-25 08:31] VITALS: BP 112/60; PULSE 73; RESP 17; TEMP 97.6; O2SAT 95
[2023-07-25 16:46] LABS: GLUCOMETER DEV NAME(LOC) BV3N.; GLUCOSE,POINT OF CARE 161 MG/DL (70-110)
[2023-07-25 20:35] VITALS: BP 122/79; PULSE 89; RESP 17; TEMP 98.4
[2023-07-26 06:21] LABS: GLUCOMETER DEV NAME(LOC) BV3N.; GLUCOSE,POINT OF CARE 236 MG/DL (70-110)
[2023-07-26 08:00] VITALS: BP 104/65; PULSE 78; RESP 17; TEMP 97.6; O2SAT 97
[2023-07-26 16:56] LABS: GLUCOMETER DEV NAME(LOC) BV3N.; GLUCOSE,POINT OF CARE 152 MG/DL (70-110)
[2023-07-26 21:00] VITALS: BP 104/57; PULSE 84; RESP 18; TEMP 98.2; O2SAT 95
[2023-07-27 06:21] LABS: GLUCOMETER DEV NAME(LOC) BV3N.; GLUCOSE,POINT OF CARE 225 MG/DL (70-110)
[2023-07-27 08:24] VITALS: BP 101/65; PULSE 87; RESP 17; TEMP 97.7; O2SAT 97
[2023-07-27 20:03] VITALS: BP 133/87; PULSE 85; RESP 18; TEMP 97.8; O2SAT 100
[2023-07-27 23:46] LABS: GLUCOMETER DEV NAME(LOC) BV3N.; GLUCOSE,POINT OF CARE 161 MG/DL (70-110)
[2023-07-28 06:21] LABS: GLUCOMETER DEV NAME(LOC) BV3N.; GLUCOSE,POINT OF CARE 92 MG/DL (70-110)
[2023-07-28 16:10] VITALS: BP 129/81; PULSE 100; RESP 17; TEMP 97.8; O2SAT 100
[2023-07-28 18:25] LABS: GLUCOMETER DEV NAME(LOC) BV3N.; GLUCOSE,POINT OF CARE 304 MG/DL (70-110)
[2023-07-28 21:17] VITALS: BP 112/68; PULSE 96; RESP 18; TEMP 98.5; O2SAT 99
[2023-07-29 06:16] LABS: GLUCOMETER DEV NAME(LOC) BV3N.; GLUCOSE,POINT OF CARE 163 MG/DL (70-110)
[2023-07-29 08:01] VITALS: BP 129/72; PULSE 71; RESP 17; TEMP 97.5
[2023-07-29 17:01] LABS: GLUCOMETER DEV NAME(LOC) BV3N.; GLUCOSE,POINT OF CARE 199 MG/DL (70-110)
[2023-07-29 20:25] VITALS: BP 122/70; PULSE 92; RESP 18; TEMP 97.8
[2023-07-30 06:46] LABS: GLUCOMETER DEV NAME(LOC) BV3N.; GLUCOSE,POINT OF CARE 203 MG/DL (70-110)
[2023-07-30 08:01] VITALS: BP 108/62; PULSE 95; RESP 18; TEMP 97.5; O2SAT 99
[2023-07-30 18:01] LABS: GLUCOMETER DEV NAME(LOC) BV3N.; GLUCOSE,POINT OF CARE 256 MG/DL (70-110)
[2023-07-31 05:14] VITALS: BP 117/68; PULSE 95; RESP 18; TEMP 97.8
[2023-07-31 06:51] LABS: GLUCOMETER DEV NAME(LOC) BV3N.; GLUCOSE,POINT OF CARE 191 MG/DL (70-110)
[2023-07-31 08:00] VITALS: BP 129/88; PULSE 84; RESP 18; TEMP 97.7
[2023-07-31 17:31] LABS: GLUCOMETER DEV NAME(LOC) BV3N.; GLUCOSE,POINT OF CARE 248 MG/DL (70-110)
[2023-07-31 20:15] VITALS: BP 139/80; PULSE 90; RESP 20; TEMP 97.7; O2SAT 98
[2023-08-01 06:27] LABS: GLUCOMETER DEV NAME(LOC) BV3N.; GLUCOSE,POINT OF CARE 213 MG/DL (70-110)
[2023-08-01 08:02] VITALS: BP 122/76; PULSE 85; RESP 18; TEMP 98.2; O2SAT 100
[2023-08-01 16:26] LABS: GLUCOMETER DEV NAME(LOC) BV3N.; GLUCOSE,POINT OF CARE 146 MG/DL (70-110)
[2023-08-01 21:23] VITALS: BP 128/78; PULSE 82; RESP 16; TEMP 97.8; O2SAT 98
[2023-08-02 05:46] LABS: GLUCOMETER DEV NAME(LOC) BV3N.; GLUCOSE,POINT OF CARE 276 MG/DL (70-110)
[2023-08-02 08:30] VITALS: BP 115/65; PULSE 66; RESP 16; TEMP 98.6; O2SAT 95
[2023-08-02 16:51] LABS: GLUCOMETER DEV NAME(LOC) BV3N.; GLUCOSE,POINT OF CARE 159 MG/DL (70-110)
[2023-08-03 01:24] VITALS: RESP 18
[2023-08-03 06:11] LABS: GLUCOMETER DEV NAME(LOC) BV3N.; GLUCOSE,POINT OF CARE 220 MG/DL (70-110)
[2023-08-03 08:21] VITALS: BP 100/62; PULSE 90; RESP 16; TEMP 98; O2SAT 97
[2023-08-03 17:06] LABS: GLUCOMETER DEV NAME(LOC) BV3N.; GLUCOSE,POINT OF CARE 269 MG/DL (70-110)
[2023-08-03 22:15] VITALS: BP 124/60; PULSE 94; RESP 18; TEMP 97.7
[2023-08-04 06:31] LABS: GLUCOMETER DEV NAME(LOC) BV3N.; GLUCOSE,POINT OF CARE 203 MG/DL (70-110)
[2023-08-04 13:34] VITALS: BP 131/86; PULSE 104; RESP 20; TEMP 97.7; O2SAT 98
[2023-08-04 17:02] LABS: GLUCOMETER DEV NAME(LOC) BV3N.; GLUCOSE,POINT OF CARE 194 MG/DL (70-110)
[2023-08-05 01:11] VITALS: BP 114/68; PULSE 94; RESP 18; TEMP 98; O2SAT 97
[2023-08-05 06:56] LABS: GLUCOMETER DEV NAME(LOC) BV3N.; GLUCOSE,POINT OF CARE 213 MG/DL (70-110)
[2023-08-05 09:00] VITALS: BP 118/72; PULSE 88; RESP 18; TEMP 97.8; O2SAT 98
[2023-08-05] MEDS ORDERED: LORazepam 2 MG/ML VIAL ONE (16:20)
[2023-08-05] MEDS ORDERED: DiphenhydrAMINE HCL 50 MG/ML VIAL ONE (16:21)
[2023-08-05] MEDS: ChlorproMAZINE HCL 50 MG/2 ML AMP IM ONE (16:30)
[2023-08-05] MEDS: DiphenhydrAMINE HCL 50 MG/ML VIAL IM ONE (16:30)
[2023-08-05] MEDS: LORazepam 2 MG/ML VIAL IM ONE (16:30)
[2023-08-05 16:31] LABS: GLUCOMETER DEV NAME(LOC) BV3N.; GLUCOSE,POINT OF CARE 212 MG/DL (70-110)
[2023-08-06 02:31] VITALS: RESP 18
[2023-08-06 06:31] LABS: GLUCOMETER DEV NAME(LOC) BV3N.; GLUCOSE,POINT OF CARE 106 MG/DL (70-110)
[2023-08-06] MEDS: QUEtiapine FUMARATE 100 MG TABLET PO SCH (09:28)
[2023-08-06 10:11] VITALS: BP 117/70; PULSE 60; RESP 16; TEMP 97.7; O2SAT 97
[2023-08-06 17:01] LABS: GLUCOMETER DEV NAME(LOC) BV3N.; GLUCOSE,POINT OF CARE 200 MG/DL (70-110)
[2023-08-06 21:44] VITALS: BP 112/71; PULSE 89; RESP 18; TEMP 98.3; O2SAT 98
[2023-08-07 06:21] LABS: GLUCOMETER DEV NAME(LOC) BV3N.; GLUCOSE,POINT OF CARE 179 MG/DL (70-110)
[2023-08-07 09:53] VITALS: BP 114/69; PULSE 32; RESP 18; TEMP 97.8; O2SAT 97
[2023-08-07 16:36] LABS: GLUCOMETER DEV NAME(LOC) BV3N.; GLUCOSE,POINT OF CARE 312 MG/DL (70-110)
[2023-08-07 20:42] VITALS: BP 115/67; PULSE 82; RESP 18; TEMP 97.6
[2023-08-08 06:41] LABS: GLUCOMETER DEV NAME(LOC) BV3N.; GLUCOSE,POINT OF CARE 219 MG/DL (70-110)
[2023-08-08 08:05] VITALS: BP 113/60; PULSE 76; RESP 20; TEMP 96.9
[2023-08-08 16:36] LABS: GLUCOMETER DEV NAME(LOC) BV3N.; GLUCOSE,POINT OF CARE 202 MG/DL (70-110)
[2023-08-08 20:16] VITALS: BP 134/77; PULSE 95; RESP 18; TEMP 97.8; O2SAT 100
[2023-08-09 06:21] LABS: GLUCOMETER DEV NAME(LOC) BV3N.; GLUCOSE,POINT OF CARE 222 MG/DL (70-110)
[2023-08-09 08:30] VITALS: BP 133/79; PULSE 100; RESP 18; TEMP 98; O2SAT 97
[2023-08-09 17:16] LABS: GLUCOMETER DEV NAME(LOC) BV3N.; GLUCOSE,POINT OF CARE 297 MG/DL (70-110)
[2023-08-09 20:36] VITALS: BP 114/63; PULSE 82; RESP 20; TEMP 97.9; O2SAT 94
[2023-08-10 06:26] LABS: GLUCOMETER DEV NAME(LOC) BV3N.; GLUCOSE,POINT OF CARE 226 MG/DL (70-110)
[2023-08-10 08:01] VITALS: BP 96/55; PULSE 82; RESP 15; TEMP 97.8; O2SAT 97
[2023-08-10] MEDS: DOCUSATE SODIUM 100 MG CAPSULE PO PRN (09:52)
[2023-08-10 16:36] LABS: GLUCOMETER DEV NAME(LOC) BV3N.; GLUCOSE,POINT OF CARE 255 MG/DL (70-110)
[2023-08-10 20:35] VITALS: BP 128/61; PULSE 84; RESP 18; TEMP 97.5; O2SAT 99
[2023-08-11 06:36] LABS: GLUCOMETER DEV NAME(LOC) BV3N.; GLUCOSE,POINT OF CARE 133 MG/DL (70-110)
[2023-08-11 08:03] VITALS: BP 114/61; PULSE 74; RESP 17; TEMP 98.4; O2SAT 97
[2023-08-11 16:51] LABS: GLUCOMETER DEV NAME(LOC) BV3N.; GLUCOSE,POINT OF CARE 239 MG/DL (70-110)
[2023-08-12 00:29] VITALS: BP 136/73; PULSE 82; RESP 18; TEMP 98.2; O2SAT 100
[2023-08-12 08:15] VITALS: BP 98/60; PULSE 72; RESP 18; TEMP 98; O2SAT 99
[2023-08-12 17:11] LABS: GLUCOMETER DEV NAME(LOC) BV3N.; GLUCOSE,POINT OF CARE 375 MG/DL (70-110)
[2023-08-13 03:28] VITALS: BP 128/69; PULSE 77; RESP 18; TEMP 97.9; O2SAT 98
[2023-08-13 06:51] LABS: GLUCOMETER DEV NAME(LOC) BV3N.; GLUCOSE,POINT OF CARE 302 MG/DL (70-110)
[2023-08-13 08:36] VITALS: BP 104/67; PULSE 90; RESP 17; TEMP 97.7; O2SAT 99
[2023-08-13 17:52] LABS: GLUCOMETER DEV NAME(LOC) BV3N.; GLUCOSE,POINT OF CARE 280 MG/DL (70-110)
[2023-08-13 20:45] VITALS: BP 108/62; PULSE 88; RESP 17; TEMP 98; O2SAT 98
[2023-08-14 06:36] LABS: GLUCOMETER DEV NAME(LOC) BV3N.; GLUCOSE,POINT OF CARE 224 MG/DL (70-110)
[2023-08-14 08:38] VITALS: BP 128/76; PULSE 72; RESP 17; TEMP 97.8; O2SAT 97
[2023-08-14 17:16] LABS: GLUCOMETER DEV NAME(LOC) BV3N.; GLUCOSE,POINT OF CARE 291 MG/DL (70-110)
[2023-08-14 20:33] VITALS: BP 127/85; PULSE 87; RESP 18; TEMP 98.2; O2SAT 99
[2023-08-15] MEDS: GlipiZIDE 5 MG TABLET PO SCH (06:10)
[2023-08-15 06:22] LABS: GLUCOMETER DEV NAME(LOC) BV3N.; GLUCOSE,POINT OF CARE 211 MG/DL (70-110)
[2023-08-15] MEDS ORDERED: GlipiZIDE 5 MG TABLET PO SCH (06:30)
[2023-08-15] MEDS ORDERED: GlipiZIDE 10 MG TABLET PO SCH ×2 (06:30)
[2023-08-15 08:16] VITALS: BP 104/56; PULSE 81; RESP 16; TEMP 98.2; O2SAT 96
[2023-08-15 16:56] LABS: GLUCOMETER DEV NAME(LOC) BV3N.; GLUCOSE,POINT OF CARE 263 MG/DL (70-110)
[2023-08-15 20:11] VITALS: BP 131/80; PULSE 96; RESP 18; TEMP 97.8
[2023-08-16 08:17] VITALS: BP 100/60; PULSE 75; RESP 17; TEMP 97.7; O2SAT 95
[2023-08-16 17:11] LABS: GLUCOMETER DEV NAME(LOC) BV3N.; GLUCOSE,POINT OF CARE 204 MG/DL (70-110)
[2023-08-16 23:28] VITALS: BP 133/79; PULSE 79; RESP 18; TEMP 97.6; O2SAT 97
[2023-08-17 06:41] LABS: GLUCOMETER DEV NAME(LOC) BV3N.; GLUCOSE,POINT OF CARE 274 MG/DL (70-110)
[2023-08-17 08:03] VITALS: BP 100/60; PULSE 79; RESP 17; TEMP 97.7; O2SAT 97
[2023-08-17 17:06] LABS: GLUCOMETER DEV NAME(LOC) BV3N.; GLUCOSE,POINT OF CARE 256 MG/DL (70-110)
[2023-08-18 00:13] VITALS: BP 137/78; PULSE 85; RESP 18; TEMP 98; O2SAT 100
[2023-08-18 06:35] LABS: GLUCOMETER DEV NAME(LOC) BV3N.; GLUCOSE,POINT OF CARE 246 MG/DL (70-110)
[2023-08-18 11:01] VITALS: BP 126/72; PULSE 82; RESP 17; TEMP 98; O2SAT 98
[2023-08-18] MEDS ORDERED: DEXTROSE 50%-WATER 25 GM/50 ML SYRINGE IVP PRN (14:00)
[2023-08-18] MEDS: MetFORMIN HCL 500 MG TABLET PO SCH (16:45)
[2023-08-18] MEDS: INSULIN LISPRO 100 UNITS/ML SQ PRN (17:06)
[2023-08-18 17:32] LABS: GLUCOMETER DEV NAME(LOC) BV3N.; GLUCOSE,POINT OF CARE 201 MG/DL (70-110)
[2023-08-18 20:26] LABS: GLUCOMETER DEV NAME(LOC) BV3N.; GLUCOSE,POINT OF CARE 90 MG/DL (70-110)
[2023-08-18] MEDS: INSULIN GLARGINE,HUM.REC.ANLOG 100 UNITS/ML SQ SCH (21:15)
[2023-08-18 23:49] VITALS: BP 100/65; PULSE 90; RESP 18; TEMP 99; O2SAT 98
[2023-08-19] MEDS ORDERED: GLUCAGON,HUMAN RECOMBINANT 1 MG VIAL IM PRN (00:30)
[2023-08-19] MEDS: INSULIN LISPRO 100 UNITS/ML SQ PRN (06:30)
[2023-08-19 06:46] LABS: GLUCOMETER DEV NAME(LOC) BV3N.; GLUCOSE,POINT OF CARE 187 MG/DL (70-110)
[2023-08-19 08:45] VITALS: BP 118/65; PULSE 75; RESP 17; TEMP 98.4; O2SAT 98
[2023-08-19 12:21] LABS: GLUCOMETER DEV NAME(LOC) BV3N.; GLUCOSE,POINT OF CARE 153 MG/DL (70-110)
[2023-08-19 17:21] LABS: GLUCOMETER DEV NAME(LOC) BV3N.; GLUCOSE,POINT OF CARE 161 MG/DL (70-110)
[2023-08-19 20:44] VITALS: BP 138/75; PULSE 84; RESP 18; TEMP 98.7; O2SAT 99
[2023-08-19 20:51] LABS: GLUCOMETER DEV NAME(LOC) BV3N.; GLUCOSE,POINT OF CARE 220 MG/DL (70-110)
[2023-08-20 06:36] LABS: GLUCOMETER DEV NAME(LOC) BV3N.; GLUCOSE,POINT OF CARE 149 MG/DL (70-110)
[2023-08-20 09:25] VITALS: BP 127/74; PULSE 89; RESP 18; TEMP 98.5; O2SAT 98
[2023-08-20 12:06] LABS: GLUCOMETER DEV NAME(LOC) BV3N.; GLUCOSE,POINT OF CARE 198 MG/DL (70-110)
[2023-08-20 16:51] LABS: GLUCOMETER DEV NAME(LOC) BV3N.; GLUCOSE,POINT OF CARE 237 MG/DL (70-110)
[2023-08-20 20:41] LABS: GLUCOMETER DEV NAME(LOC) BV3N.; GLUCOSE,POINT OF CARE 127 MG/DL (70-110)
[2023-08-20 21:54] VITALS: BP 100/63; PULSE 110; RESP 18; TEMP 98.1; O2SAT 98
[2023-08-21 06:22] LABS: GLUCOMETER DEV NAME(LOC) BV3N.; GLUCOSE,POINT OF CARE 223 MG/DL (70-110)
[2023-08-21 08:12] VITALS: BP 100/60; PULSE 87; RESP 17; TEMP 97.6; O2SAT 96
[2023-08-21 11:56] LABS: GLUCOMETER DEV NAME(LOC) BV3N.; GLUCOSE,POINT OF CARE 194 MG/DL (70-110)
[2023-08-21 17:26] LABS: GLUCOMETER DEV NAME(LOC) BV3N.; GLUCOSE,POINT OF CARE 247 MG/DL (70-110)
[2023-08-21 20:42] VITALS: BP 130/71; PULSE 95; RESP 18; TEMP 97.9; O2SAT 99
[2023-08-21 20:56] LABS: GLUCOMETER DEV NAME(LOC) BV3N.; GLUCOSE,POINT OF CARE 75 MG/DL (70-110)
[2023-08-22 06:21] LABS: GLUCOMETER DEV NAME(LOC) BV3N.; GLUCOSE,POINT OF CARE 149 MG/DL (70-110)
[2023-08-22 09:04] VITALS: BP 100/60; PULSE 82; RESP 17; TEMP 97.8; O2SAT 98
[2023-08-22 17:22] LABS: GLUCOMETER DEV NAME(LOC) BV3N.; GLUCOSE,POINT OF CARE 245 MG/DL (70-110)
[2023-08-22 20:05] VITALS: BP 115/67; PULSE 82; RESP 18; TEMP 97.7; O2SAT 97
[2023-08-22 20:47] LABS: GLUCOMETER DEV NAME(LOC) BV3N.; GLUCOSE,POINT OF CARE 134 MG/DL (70-110)
[2023-08-23 05:57] LABS: GLUCOMETER DEV NAME(LOC) BV3N.; GLUCOSE,POINT OF CARE 160 MG/DL (70-110)
[2023-08-23 08:34] VITALS: BP 102/66; PULSE 81; RESP 17; TEMP 97.7; O2SAT 99
[2023-08-23 12:02] LABS: GLUCOMETER DEV NAME(LOC) BV3N.; GLUCOSE,POINT OF CARE 126 MG/DL (70-110)
[2023-08-23 17:16] LABS: GLUCOMETER DEV NAME(LOC) BV3N.; GLUCOSE,POINT OF CARE 284 MG/DL (70-110)
[2023-08-23 21:01] LABS: GLUCOMETER DEV NAME(LOC) BV3N.; GLUCOSE,POINT OF CARE 148 MG/DL (70-110)
[2023-08-23 21:17] VITALS: BP 141/83; PULSE 89; RESP 18; TEMP 98.5; O2SAT 100
[2023-08-24 06:17] LABS: GLUCOMETER DEV NAME(LOC) BV3N.; GLUCOSE,POINT OF CARE 137 MG/DL (70-110)
[2023-08-24 09:34] VITALS: BP 150/90; PULSE 97; RESP 16; TEMP 96.3; O2SAT 100
[2023-08-24 12:06] LABS: GLUCOMETER DEV NAME(LOC) BV3N.; GLUCOSE,POINT OF CARE 234 MG/DL (70-110)
[2023-08-24 17:11] LABS: GLUCOMETER DEV NAME(LOC) BV3N.; GLUCOSE,POINT OF CARE 158 MG/DL (70-110)
[2023-08-24 20:29] VITALS: BP 138/81; PULSE 89; RESP 18; TEMP 98.4
[2023-08-24 21:01] LABS: GLUCOMETER DEV NAME(LOC) BV3N.; GLUCOSE,POINT OF CARE 95 MG/DL (70-110)
[2023-08-25 06:26] LABS: GLUCOMETER DEV NAME(LOC) BV3N.; GLUCOSE,POINT OF CARE 160 MG/DL (70-110)
[2023-08-25 08:58] VITALS: BP 100/66; PULSE 87; RESP 17; TEMP 98.2; O2SAT 98
[2023-08-25] MEDS: ChlorproMAZINE HCL 50 MG/2 ML AMP IM PRN (10:17)
[2023-08-25] MEDS ORDERED: DiphenhydrAMINE HCL 50 MG/ML VIAL ONE (12:29)
[2023-08-25] MEDS ORDERED: LORazepam 2 MG/ML VIAL ONE (12:30)
[2023-08-25] MEDS: DiphenhydrAMINE HCL 50 MG/ML VIAL IM ONE (12:45)
[2023-08-25] MEDS: LORazepam 2 MG/ML VIAL IM ONE (12:46)
[2023-08-25] MEDS: ChlorproMAZINE HCL 50 MG/2 ML AMP IM ONE (12:46)
[2023-08-25 16:56] LABS: GLUCOMETER DEV NAME(LOC) BV3N.; GLUCOSE,POINT OF CARE 219 MG/DL (70-110)
[2023-08-25 20:03] VITALS: BP 120/72; PULSE 91; RESP 18; TEMP 98.1
[2023-08-25 20:56] LABS: GLUCOMETER DEV NAME(LOC) BV3N.; GLUCOSE,POINT OF CARE 95 MG/DL (70-110)
[2023-08-26 07:01] LABS: GLUCOMETER DEV NAME(LOC) BV3N.; GLUCOSE,POINT OF CARE 135 MG/DL (70-110)
[2023-08-26 08:03] VITALS: BP 100/60; PULSE 100; RESP 17; TEMP 97.7; O2SAT 97
[2023-08-26 16:51] LABS: GLUCOMETER DEV NAME(LOC) BV3N.; GLUCOSE,POINT OF CARE 207 MG/DL (70-110)
[2023-08-26 20:51] LABS: GLUCOMETER DEV NAME(LOC) BV3N.; GLUCOSE,POINT OF CARE 214 MG/DL (70-110)
[2023-08-26 23:34] VITALS: BP 135/62; PULSE 98; RESP 18; TEMP 97.3; O2SAT 98
[2023-08-27 06:51] LABS: GLUCOMETER DEV NAME(LOC) BV3N.; GLUCOSE,POINT OF CARE 163 MG/DL (70-110)
[2023-08-27 08:16] VITALS: BP 134/73; PULSE 100; RESP 18; TEMP 97.6; O2SAT 100
[2023-08-27 12:01] LABS: GLUCOMETER DEV NAME(LOC) BV3N.; GLUCOSE,POINT OF CARE 151 MG/DL (70-110)
[2023-08-27 20:07] VITALS: BP 140/82; PULSE 104; RESP 20; TEMP 98; O2SAT 97
[2023-08-27 20:41] LABS: GLUCOMETER DEV NAME(LOC) BV3N.; GLUCOSE,POINT OF CARE 231 MG/DL (70-110)
[2023-08-28 06:36] LABS: GLUCOMETER DEV NAME(LOC) BV3N.; GLUCOSE,POINT OF CARE 136 MG/DL (70-110)
[2023-08-28 09:27] VITALS: BP 101/65; PULSE 94; RESP 19; TEMP 98.5; O2SAT 98
[2023-08-28 11:25] LABS: GLUCOMETER DEV NAME(LOC) BV3N.; GLUCOSE,POINT OF CARE 143 MG/DL (70-110)
[2023-08-28 18:06] LABS: GLUCOMETER DEV NAME(LOC) BV3N.; GLUCOSE,POINT OF CARE 214 MG/DL (70-110)
[2023-08-28 20:01] VITALS: BP 125/74; PULSE 90; RESP 20; TEMP 98; O2SAT 98
[2023-08-28 20:45] LABS: GLUCOMETER DEV NAME(LOC) BV3N.; GLUCOSE,POINT OF CARE 217 MG/DL (70-110)
[2023-08-29 06:26] LABS: GLUCOMETER DEV NAME(LOC) BV3N.; GLUCOSE,POINT OF CARE 102 MG/DL (70-110)
[2023-08-29 08:35] VITALS: BP 118/70; PULSE 88; RESP 17; TEMP 97.8; O2SAT 98
[2023-08-29 11:26] LABS: GLUCOMETER DEV NAME(LOC) BV3N.; GLUCOSE,POINT OF CARE 232 MG/DL (70-110)
[2023-08-29 16:36] LABS: GLUCOMETER DEV NAME(LOC) BV3N.; GLUCOSE,POINT OF CARE 87 MG/DL (70-110)
[2023-08-29 20:21] LABS: GLUCOMETER DEV NAME(LOC) BV3N.; GLUCOSE,POINT OF CARE 205 MG/DL (70-110)
[2023-08-29 23:05] VITALS: BP 110/68; PULSE 80; RESP 17; TEMP 98; O2SAT 98
[2023-08-30 06:16] LABS: GLUCOMETER DEV NAME(LOC) BV3N.; GLUCOSE,POINT OF CARE 101 MG/DL (70-110)
[2023-08-30 08:26] VITALS: BP 131/80; PULSE 104; RESP 18; TEMP 98.3; O2SAT 97
[2023-08-30 11:42] LABS: GLUCOMETER DEV NAME(LOC) BV3N.; GLUCOSE,POINT OF CARE 167 MG/DL (70-110)
[2023-08-30] MEDS: RisperiDONE 1 MG TABLET PO SCH (12:33)
[2023-08-30 16:51] LABS: GLUCOMETER DEV NAME(LOC) BV3N.; GLUCOSE,POINT OF CARE 225 MG/DL (70-110)
[2023-08-30 20:41] LABS: GLUCOMETER DEV NAME(LOC) BV3N.; GLUCOSE,POINT OF CARE 101 MG/DL (70-110)
[2023-08-30 22:16] VITALS: BP 98/55; PULSE 87; RESP 18; TEMP 98.2; O2SAT 95
[2023-08-31 06:36] LABS: GLUCOMETER DEV NAME(LOC) BV3N.; GLUCOSE,POINT OF CARE 143 MG/DL (70-110)
[2023-08-31 08:18] VITALS: BP 100/60; PULSE 88; RESP 17; TEMP 98; O2SAT 99
[2023-08-31 11:46] LABS: GLUCOMETER DEV NAME(LOC) BV3N.; GLUCOSE,POINT OF CARE 94 MG/DL (70-110)
[2023-08-31 20:11] LABS: GLUCOMETER DEV NAME(LOC) BV3N.; GLUCOSE,POINT OF CARE 214 MG/DL (70-110)
[2023-08-31 20:12] VITALS: BP 100/64; PULSE 99; RESP 18; TEMP 97.6; O2SAT 98
[2023-08-31 21:11] LABS: GLUCOMETER DEV NAME(LOC) BV3N.; GLUCOSE,POINT OF CARE 69 MG/DL (70-110)
[2023-08-31 21:11] LABS: GLUCOMETER DEV NAME(LOC) BV3N.; GLUCOSE,POINT OF CARE 85 MG/DL (70-110)
[2023-08-31 21:11] LABS: GLUCOMETER DEV NAME(LOC) BV3N.; GLUCOSE,POINT OF CARE 126 MG/DL (70-110)
[2023-09-01 06:31] LABS: GLUCOMETER DEV NAME(LOC) BV3N.; GLUCOSE,POINT OF CARE 226 MG/DL (70-110)
[2023-09-01 09:24] VITALS: BP 100/65; PULSE 64; RESP 17; TEMP 98; O2SAT 95
[2023-09-01 11:51] LABS: GLUCOMETER DEV NAME(LOC) BV3N.; GLUCOSE,POINT OF CARE 186 MG/DL (70-110)
[2023-09-01 16:41] LABS: GLUCOMETER DEV NAME(LOC) BV3N.; GLUCOSE,POINT OF CARE 267 MG/DL (70-110)
[2023-09-01 21:17] LABS: GLUCOMETER DEV NAME(LOC) BV3N.; GLUCOSE,POINT OF CARE 76 MG/DL (70-110)
[2023-09-01 23:44] VITALS: BP 123/71; PULSE 97; RESP 18; TEMP 97.4; O2SAT 98
[2023-09-02 06:31] LABS: GLUCOMETER DEV NAME(LOC) BV3N.; GLUCOSE,POINT OF CARE 252 MG/DL (70-110)
[2023-09-02 08:15] VITALS: BP 100/61; PULSE 72; RESP 18; TEMP 98.2; O2SAT 98
[2023-09-02 11:26] LABS: GLUCOMETER DEV NAME(LOC) BV3N.; GLUCOSE,POINT OF CARE 174 MG/DL (70-110)
[2023-09-02 17:01] LABS: GLUCOMETER DEV NAME(LOC) BV3N.; GLUCOSE,POINT OF CARE 178 MG/DL (70-110)
[2023-09-02 20:14] VITALS: BP 142/83; PULSE 100; RESP 18; TEMP 97.8; O2SAT 98
[2023-09-02 20:46] LABS: GLUCOMETER DEV NAME(LOC) BV3N.; GLUCOSE,POINT OF CARE 99 MG/DL (70-110)
[2023-09-03 06:07] LABS: GLUCOMETER DEV NAME(LOC) BV3N.; GLUCOSE,POINT OF CARE 224 MG/DL (70-110)
[2023-09-03 08:18] VITALS: BP 122/69; PULSE 88; RESP 20; TEMP 97.4; O2SAT 99
[2023-09-03 11:47] LABS: GLUCOMETER DEV NAME(LOC) BV3N.; GLUCOSE,POINT OF CARE 86 MG/DL (70-110)
[2023-09-03 17:01] LABS: GLUCOMETER DEV NAME(LOC) BV3N.; GLUCOSE,POINT OF CARE 137 MG/DL (70-110)
[2023-09-03 21:05] LABS: GLUCOMETER DEV NAME(LOC) BV3N.; GLUCOSE,POINT OF CARE 236 MG/DL (70-110)
[2023-09-04 02:05] VITALS: RESP 17
[2023-09-04 06:41] LABS: GLUCOMETER DEV NAME(LOC) BV3N.; GLUCOSE,POINT OF CARE 131 MG/DL (70-110)
[2023-09-04 12:10] LABS: GLUCOMETER DEV NAME(LOC) BV3N.; GLUCOSE,POINT OF CARE 129 MG/DL (70-110)
[2023-09-04 17:12] LABS: GLUCOMETER DEV NAME(LOC) BV3N.; GLUCOSE,POINT OF CARE 253 MG/DL (70-110)
[2023-09-04 20:03] VITALS: BP 132/67; PULSE 92; RESP 18; TEMP 97.9
[2023-09-04 21:16] LABS: GLUCOMETER DEV NAME(LOC) BV3N.; GLUCOSE,POINT OF CARE 185 MG/DL (70-110)
[2023-09-05 06:36] LABS: GLUCOMETER DEV NAME(LOC) BV3N.; GLUCOSE,POINT OF CARE 203 MG/DL (70-110)
[2023-09-05] MEDS: RisperiDONE 2 MG TABLET PO SCH (08:05)
[2023-09-05 08:48] VITALS: BP 123/78; PULSE 79; RESP 20; TEMP 97.7
[2023-09-05 11:36] LABS: GLUCOMETER DEV NAME(LOC) BV3N.; GLUCOSE,POINT OF CARE 144 MG/DL (70-110)
[2023-09-05 17:46] LABS: GLUCOMETER DEV NAME(LOC) BV3N.; GLUCOSE,POINT OF CARE 198 MG/DL (70-110)
[2023-09-05 20:04] VITALS: BP 120/70; PULSE 104; RESP 19; TEMP 98; O2SAT 98
[2023-09-05 21:01] LABS: GLUCOMETER DEV NAME(LOC) BV3N.; GLUCOSE,POINT OF CARE 129 MG/DL (70-110)
[2023-09-06 06:16] LABS: GLUCOMETER DEV NAME(LOC) BV3N.; GLUCOSE,POINT OF CARE 156 MG/DL (70-110)
[2023-09-06 08:16] VITALS: BP 102/69; PULSE 79; RESP 16; TEMP 98.3; O2SAT 97
[2023-09-06 11:42] LABS: GLUCOMETER DEV NAME(LOC) BV3N.; GLUCOSE,POINT OF CARE 151 MG/DL (70-110)
[2023-09-06 16:51] LABS: GLUCOMETER DEV NAME(LOC) BV3N.; GLUCOSE,POINT OF CARE 224 MG/DL (70-110)
[2023-09-06 20:00] VITALS: BP 139/81; PULSE 99; RESP 18; TEMP 97.9; O2SAT 98
[2023-09-06 21:57] LABS: GLUCOMETER DEV NAME(LOC) BV3N.; GLUCOSE,POINT OF CARE 105 MG/DL (70-110)
[2023-09-07 06:06] LABS: GLUCOMETER DEV NAME(LOC) BV3N.; GLUCOSE,POINT OF CARE 163 MG/DL (70-110)
[2023-09-07 08:05] VITALS: BP 109/69; PULSE 95; RESP 18; TEMP 98.1; O2SAT 98
[2023-09-07 20:04] VITALS: BP 138/78; PULSE 80; RESP 20; TEMP 97.8; O2SAT 98
[2023-09-07 20:25] LABS: GLUCOMETER DEV NAME(LOC) BV3N.; GLUCOSE,POINT OF CARE 174 MG/DL (70-110)
[2023-09-08 06:21] LABS: GLUCOMETER DEV NAME(LOC) BV3N.; GLUCOSE,POINT OF CARE 228 MG/DL (70-110)
[2023-09-08 09:26] LABS: GLUCOMETER DEV NAME(LOC) BV3N.; GLUCOSE,POINT OF CARE 62 MG/DL (70-110)
[2023-09-08 12:32] LABS: GLUCOMETER DEV NAME(LOC) BV3N.; GLUCOSE,POINT OF CARE 291 MG/DL (70-110)
[2023-09-08 16:41] LABS: GLUCOMETER DEV NAME(LOC) BV3N.; GLUCOSE,POINT OF CARE 171 MG/DL (70-110)
[2023-09-08 20:31] LABS: GLUCOMETER DEV NAME(LOC) BV3N.; GLUCOSE,POINT OF CARE 158 MG/DL (70-110)
[2023-09-08 23:54] VITALS: BP 128/68; PULSE 78; RESP 18; TEMP 98.2; O2SAT 98
[2023-09-09 06:20] LABS: GLUCOMETER DEV NAME(LOC) BV3N.; GLUCOSE,POINT OF CARE 158 MG/DL (70-110)
[2023-09-09 08:02] VITALS: BP 125/65; PULSE 75; RESP 16; TEMP 98.3; O2SAT 96
[2023-09-09 17:06] LABS: GLUCOMETER DEV NAME(LOC) BV3N.; GLUCOSE,POINT OF CARE 129 MG/DL (70-110)
[2023-09-09] MEDS: RisperiDONE 3 MG TABLET PO SCH (21:13)
[2023-09-09 21:21] LABS: GLUCOMETER DEV NAME(LOC) BV3N.; GLUCOSE,POINT OF CARE 220 MG/DL (70-110)
[2023-09-10 00:13] VITALS: BP 123/78; PULSE 96; RESP 16; TEMP 97.8; O2SAT 98
[2023-09-10 06:36] LABS: GLUCOMETER DEV NAME(LOC) BV3N.; GLUCOSE,POINT OF CARE 115 MG/DL (70-110)
[2023-09-10 09:07] VITALS: BP 107/58; PULSE 74; RESP 16; TEMP 97.5; O2SAT 96
[2023-09-10 12:26] LABS: GLUCOMETER DEV NAME(LOC) BV3N.; GLUCOSE,POINT OF CARE 100 MG/DL (70-110)
[2023-09-10 17:01] LABS: GLUCOMETER DEV NAME(LOC) BV3N.; GLUCOSE,POINT OF CARE 277 MG/DL (70-110)
[2023-09-10 20:01] VITALS: BP 104/67; PULSE 82; RESP 18; TEMP 97.8; O2SAT 98
[2023-09-10 21:37] LABS: GLUCOMETER DEV NAME(LOC) BV3N.; GLUCOSE,POINT OF CARE 99 MG/DL (70-110)
[2023-09-11 06:46] LABS: GLUCOMETER DEV NAME(LOC) BV3N.; GLUCOSE,POINT OF CARE 224 MG/DL (70-110)
[2023-09-11 08:08] VITALS: BP 117/76; PULSE 73; RESP 17; TEMP 97.8; O2SAT 100
[2023-09-11 11:56] LABS: GLUCOMETER DEV NAME(LOC) BV3N.; GLUCOSE,POINT OF CARE 126 MG/DL (70-110)
[2023-09-11 19:26] LABS: GLUCOMETER DEV NAME(LOC) BV3N.; GLUCOSE,POINT OF CARE 165 MG/DL (70-110)
[2023-09-11 20:36] LABS: GLUCOMETER DEV NAME(LOC) BV3N.; GLUCOSE,POINT OF CARE 107 MG/DL (70-110)
[2023-09-11 22:00] VITALS: BP 118/69; PULSE 81; RESP 18; TEMP 98.4
[2023-09-12 06:36] LABS: GLUCOMETER DEV NAME(LOC) BV3N.; GLUCOSE,POINT OF CARE 227 MG/DL (70-110)
[2023-09-12 08:30] VITALS: RESP 18
[2023-09-12 11:51] LABS: GLUCOMETER DEV NAME(LOC) BV3N.; GLUCOSE,POINT OF CARE 149 MG/DL (70-110)
[2023-09-12 16:51] LABS: GLUCOMETER DEV NAME(LOC) BV3N.; GLUCOSE,POINT OF CARE 158 MG/DL (70-110)
[2023-09-12 20:10] VITALS: BP 140/76; PULSE 90; RESP 16; TEMP 98.8
[2023-09-12 20:27] LABS: GLUCOMETER DEV NAME(LOC) BV3N.; GLUCOSE,POINT OF CARE 74 MG/DL (70-110)
[2023-09-13 05:51] LABS: GLUCOMETER DEV NAME(LOC) BV3N.; GLUCOSE,POINT OF CARE 114 MG/DL (70-110)
[2023-09-13 08:10] VITALS: BP 104/60; PULSE 72; RESP 17; TEMP 97.7; O2SAT 97
[2023-09-13 11:41] LABS: GLUCOMETER DEV NAME(LOC) BV3N.; GLUCOSE,POINT OF CARE 157 MG/DL (70-110)
[2023-09-13 17:02] LABS: GLUCOMETER DEV NAME(LOC) BV3N.; GLUCOSE,POINT OF CARE 150 MG/DL (70-110)
[2023-09-13 20:00] VITALS: BP 123/82; PULSE 74; RESP 18; TEMP 97.8
[2023-09-13 20:46] LABS: GLUCOMETER DEV NAME(LOC) BV3N.; GLUCOSE,POINT OF CARE 143 MG/DL (70-110)
[2023-09-14 06:11] LABS: GLUCOMETER DEV NAME(LOC) BV3N.; GLUCOSE,POINT OF CARE 122 MG/DL (70-110)
[2023-09-14 08:18] VITALS: BP 130/80; PULSE 98; RESP 17; TEMP 97.7; O2SAT 99
[2023-09-14 08:54] LABS: APPEARANCE,URINE CLEAR (CLEAR); BILIRUBIN,URINE NEGATIVE (NEGATIVE); COLOR,URINE COLORLESS (YELLOW); GLUCOSE, URINE (UA) NEGATIVE (NEGATIVE); KETONES,URINE NEGATIVE (NEGATIVE); LEUKOCYTE ESTERASE ,URINE NEGATIVE (NEGATIVE); NITRATE,URINE NEGATIVE (NEGATIVE); OCCULT BLOOD,URINE NEGATIVE (NEGATIVE); PROTEIN,URINE NEGATIVE (NEGATIVE); SPECIFIC GRAVITIY, URINE 1.006 (1.003-1.030); UROBILINOGEN,URINE <=1.0 mg/dL (<=1.0)
[2023-09-14 09:07] LABS: ALCOHOL, URINE DRUG SCREEN NEGATIVE (NEGATIVE); AMPHET/METH SCREEN,URINE NEGATIVE (NEGATIVE); BARBITURATE SCREEN, URINE NEGATIVE (NEGATIVE); BENZODIAZEPINES SCREEN,URINE NEGATIVE (NEGATIVE); CANNABINOID SCREEN,URINE NEGATIVE (NEGATIVE); COCAINE SCREEN,URINE NEGATIVE (NEGATIVE); METHADONE SCREEN, URINE NEGATIVE (NEGATIVE); OPIATE SCREEN,URINE NEGATIVE (NEGATIVE); PHENCYCLIDINE SCREEN,URINE NEGATIVE (NEGATIVE)
[2023-09-14 11:56] LABS: GLUCOMETER DEV NAME(LOC) BV3N.; GLUCOSE,POINT OF CARE 155 MG/DL (70-110)
[2023-09-14 21:41] LABS: GLUCOMETER DEV NAME(LOC) BV3N.; GLUCOSE,POINT OF CARE 161 MG/DL (70-110)
[2023-09-14 22:34] VITALS: BP 102/68; PULSE 98; RESP 18; TEMP 97.9; O2SAT 99
[2023-09-15 06:41] LABS: GLUCOMETER DEV NAME(LOC) BV3N.; GLUCOSE,POINT OF CARE 169 MG/DL (70-110)
[2023-09-15 08:20] VITALS: BP 102/67; PULSE 76; RESP 17; TEMP 97.8; O2SAT 96
[2023-09-15 12:32] LABS: GLUCOMETER DEV NAME(LOC) BV3N.; GLUCOSE,POINT OF CARE 111 MG/DL (70-110)
[2023-09-15 17:16] LABS: GLUCOMETER DEV NAME(LOC) BV3N.; GLUCOSE,POINT OF CARE 227 MG/DL (70-110)
[2023-09-15 20:51] LABS: GLUCOMETER DEV NAME(LOC) BV3N.; GLUCOSE,POINT OF CARE 76 MG/DL (70-110)
[2023-09-15 21:18] VITALS: BP 140/91; PULSE 99; RESP 18; TEMP 97.3; O2SAT 99
[2023-09-16 06:51] LABS: GLUCOMETER DEV NAME(LOC) BV3N.; GLUCOSE,POINT OF CARE 133 MG/DL (70-110)
[2023-09-16 08:10] VITALS: BP 101/62; PULSE 73; RESP 18; TEMP 98.3; O2SAT 97
[2023-09-16 11:42] LABS: GLUCOMETER DEV NAME(LOC) BV3N.; GLUCOSE,POINT OF CARE 200 MG/DL (70-110)
[2023-09-16 21:01] LABS: GLUCOMETER DEV NAME(LOC) BV3N.; GLUCOSE,POINT OF CARE 108 MG/DL (70-110)
[2023-09-16 21:01] LABS: GLUCOMETER DEV NAME(LOC) BV3N.; GLUCOSE,POINT OF CARE 201 MG/DL (70-110)
[2023-09-16 22:17] VITALS: BP 112/57; PULSE 77; RESP 18; TEMP 97.5; O2SAT 96
[2023-09-17 06:26] LABS: GLUCOMETER DEV NAME(LOC) BV3N.; GLUCOSE,POINT OF CARE 90 MG/DL (70-110)
[2023-09-17 09:55] VITALS: BP 100/61; PULSE 82; RESP 18; TEMP 98.1; O2SAT 99
[2023-09-17 11:46] LABS: GLUCOMETER DEV NAME(LOC) BV3N.; GLUCOSE,POINT OF CARE 114 MG/DL (70-110)
[2023-09-17 17:16] LABS: GLUCOMETER DEV NAME(LOC) BV3N.; GLUCOSE,POINT OF CARE 223 MG/DL (70-110)
[2023-09-17 20:51] VITALS: BP 131/75; PULSE 100; RESP 18; TEMP 97.3; O2SAT 100
[2023-09-17 21:16] LABS: GLUCOMETER DEV NAME(LOC) BV3N.; GLUCOSE,POINT OF CARE 156 MG/DL (70-110)
[2023-09-18 06:37] LABS: GLUCOMETER DEV NAME(LOC) BV3N.; GLUCOSE,POINT OF CARE 128 MG/DL (70-110)
[2023-09-18 11:51] LABS: GLUCOMETER DEV NAME(LOC) BV3N.; GLUCOSE,POINT OF CARE 120 MG/DL (70-110)
[2023-09-18 12:33] VITALS: PULSE 80; RESP 18; TEMP 98.1; O2SAT 97
[2023-09-18 17:11] LABS: GLUCOMETER DEV NAME(LOC) BV3N.; GLUCOSE,POINT OF CARE 102 MG/DL (70-110)
[2023-09-18 20:09] VITALS: BP 132/79; PULSE 98; RESP 20; TEMP 97.8; O2SAT 100
[2023-09-18 21:16] LABS: GLUCOMETER DEV NAME(LOC) BV3N.; GLUCOSE,POINT OF CARE 213 MG/DL (70-110)
[2023-09-19 06:31] LABS: GLUCOMETER DEV NAME(LOC) BV3N.; GLUCOSE,POINT OF CARE 161 MG/DL (70-110)
[2023-09-19 08:07] VITALS: BP 116/76; PULSE 82; RESP 17; TEMP 98.3; O2SAT 100
[2023-09-19 13:06] LABS: GLUCOMETER DEV NAME(LOC) BV3N.; GLUCOSE,POINT OF CARE 128 MG/DL (70-110)
[2023-09-19 17:12] LABS: GLUCOMETER DEV NAME(LOC) BV3N.; GLUCOSE,POINT OF CARE 117 MG/DL (70-110)
[2023-09-19 20:05] VITALS: BP 137/82; PULSE 92; RESP 18; TEMP 97.8; O2SAT 98
[2023-09-19 20:46] LABS: GLUCOMETER DEV NAME(LOC) BV3N.; GLUCOSE,POINT OF CARE 140 MG/DL (70-110)
[2023-09-20 06:31] LABS: GLUCOMETER DEV NAME(LOC) BV3N.; GLUCOSE,POINT OF CARE 137 MG/DL (70-110)
[2023-09-20 08:08] VITALS: RESP 18
[2023-09-20 11:51] LABS: GLUCOMETER DEV NAME(LOC) BV3N.; GLUCOSE,POINT OF CARE 70 MG/DL (70-110)
[2023-09-20 16:31] LABS: GLUCOMETER DEV NAME(LOC) BV3N.; GLUCOSE,POINT OF CARE 166 MG/DL (70-110)
[2023-09-20 20:06] LABS: GLUCOMETER DEV NAME(LOC) BV3N.; GLUCOSE,POINT OF CARE 167 MG/DL (70-110)
[2023-09-20 20:08] VITALS: BP 107/63; PULSE 74; RESP 20; TEMP 97.8; O2SAT 98
[2023-09-21 06:02] LABS: GLUCOMETER DEV NAME(LOC) BV3N.; GLUCOSE,POINT OF CARE 129 MG/DL (70-110)
[2023-09-21 08:53] VITALS: BP 102/64; PULSE 83; RESP 18; TEMP 98.3; O2SAT 98
[2023-09-21 12:01] LABS: GLUCOMETER DEV NAME(LOC) BV3N.; GLUCOSE,POINT OF CARE 261 MG/DL (70-110)
[2023-09-21 17:01] LABS: GLUCOMETER DEV NAME(LOC) BV3N.; GLUCOSE,POINT OF CARE 80 MG/DL (70-110)
[2023-09-21 18:34] VITALS: BP 135/83; PULSE 76; RESP 18; TEMP 97.8; O2SAT 98
[2023-09-21 20:05] VITALS: BP 128/78; PULSE 98; RESP 20; TEMP 97.6; O2SAT 98
[2023-09-21 21:11] LABS: GLUCOMETER DEV NAME(LOC) BV3N.; GLUCOSE,POINT OF CARE 114 MG/DL (70-110)
[2023-09-22 06:26] LABS: GLUCOMETER DEV NAME(LOC) BV3N.; GLUCOSE,POINT OF CARE 124 MG/DL (70-110)
[2023-09-22 09:11] VITALS: BP 116/54; PULSE 93; RESP 21; TEMP 97; O2SAT 99
[2023-09-22 11:51] LABS: GLUCOMETER DEV NAME(LOC) BV3N.; GLUCOSE,POINT OF CARE 175 MG/DL (70-110)
[2023-09-22 17:11] LABS: GLUCOMETER DEV NAME(LOC) BV3N.; GLUCOSE,POINT OF CARE 198 MG/DL (70-110)
[2023-09-22 20:50] VITALS: BP 109/61; PULSE 90; RESP 18; TEMP 97.7; O2SAT 99
[2023-09-22 21:12] LABS: GLUCOMETER DEV NAME(LOC) BV3N.; GLUCOSE,POINT OF CARE 137 MG/DL (70-110)
[2023-09-23 06:27] LABS: GLUCOMETER DEV NAME(LOC) BV3N.; GLUCOSE,POINT OF CARE 128 MG/DL (70-110)
[2023-09-23 11:56] LABS: GLUCOMETER DEV NAME(LOC) BV3N.; GLUCOSE,POINT OF CARE 157 MG/DL (70-110)
[2023-09-23 13:02] VITALS: BP 106/80; PULSE 92; RESP 18; TEMP 96.6; O2SAT 97
[2023-09-23 16:46] LABS: GLUCOMETER DEV NAME(LOC) BV3N.; GLUCOSE,POINT OF CARE 114 MG/DL (70-110)
[2023-09-23 20:09] VITALS: BP 131/75; PULSE 76; RESP 18; TEMP 97.1; O2SAT 97
[2023-09-23 21:16] LABS: GLUCOMETER DEV NAME(LOC) BV3N.; GLUCOSE,POINT OF CARE 103 MG/DL (70-110)
[2023-09-24 06:21] LABS: GLUCOMETER DEV NAME(LOC) BV3N.; GLUCOSE,POINT OF CARE 96 MG/DL (70-110)
[2023-09-24 11:46] LABS: GLUCOMETER DEV NAME(LOC) BV3N.; GLUCOSE,POINT OF CARE 71 MG/DL (70-110)
[2023-09-24 12:18] VITALS: BP 128/89; PULSE 90; RESP 16; TEMP 97.8; O2SAT 98
[2023-09-24 16:56] LABS: GLUCOMETER DEV NAME(LOC) BV3N.; GLUCOSE,POINT OF CARE 139 MG/DL (70-110)
[2023-09-24 20:36] LABS: GLUCOMETER DEV NAME(LOC) BV3N.; GLUCOSE,POINT OF CARE 103 MG/DL (70-110)
[2023-09-24 20:54] VITALS: BP 140/84; PULSE 98; RESP 18; TEMP 97.8; O2SAT 98
[2023-09-25 06:31] LABS: GLUCOMETER DEV NAME(LOC) BV3N.; GLUCOSE,POINT OF CARE 146 MG/DL (70-110)
[2023-09-25 11:14] VITALS: BP 112/66; PULSE 84; RESP 16; TEMP 96.7; O2SAT 98
[2023-09-25 11:46] LABS: GLUCOMETER DEV NAME(LOC) BV3N.; GLUCOSE,POINT OF CARE 135 MG/DL (70-110)
[2023-09-25 16:51] LABS: GLUCOMETER DEV NAME(LOC) BV3N.; GLUCOSE,POINT OF CARE 229 MG/DL (70-110)
[2023-09-25 20:50] VITALS: BP 139/80; PULSE 106; RESP 16; TEMP 97.8; O2SAT 98
[2023-09-25 21:01] LABS: GLUCOMETER DEV NAME(LOC) BV3N.; GLUCOSE,POINT OF CARE 120 MG/DL (70-110)
[2023-09-26 06:31] LABS: GLUCOMETER DEV NAME(LOC) BV3N.; GLUCOSE,POINT OF CARE 156 MG/DL (70-110)
[2023-09-26 11:30] VITALS: BP 92/60; PULSE 88; RESP 17; TEMP 98; O2SAT 98
[2023-09-26 11:41] LABS: GLUCOMETER DEV NAME(LOC) BV3N.; GLUCOSE,POINT OF CARE 55 MG/DL (70-110)
[2023-09-26 12:51] LABS: GLUCOMETER DEV NAME(LOC) BV3N.; GLUCOSE,POINT OF CARE 161 MG/DL (70-110)
[2023-09-26 16:50] LABS: GLUCOMETER DEV NAME(LOC) BV3N.; GLUCOSE,POINT OF CARE 174 MG/DL (70-110)
[2023-09-26 20:41] LABS: GLUCOMETER DEV NAME(LOC) BV3N.; GLUCOSE,POINT OF CARE 174 MG/DL (70-110)
[2023-09-26 23:55] VITALS: BP 128/81; PULSE 83; RESP 18; TEMP 97.8
[2023-09-27 03:09] VITALS: BP 128/79; PULSE 79; RESP 18; TEMP 97.8
[2023-09-27 06:36] LABS: GLUCOMETER DEV NAME(LOC) BV3N.; GLUCOSE,POINT OF CARE 263 MG/DL (70-110)
[2023-09-27 08:04] VITALS: BP 100/61; PULSE 100; RESP 17; TEMP 97.7; O2SAT 100
[2023-09-27 08:05] VITALS: BP 100/61; PULSE 100; RESP 18; TEMP 97.7
[2023-09-27 11:26] LABS: GLUCOMETER DEV NAME(LOC) BV3N.; GLUCOSE,POINT OF CARE 55 MG/DL (70-110)
[2023-09-27 16:21] LABS: GLUCOMETER DEV NAME(LOC) BV3N.; GLUCOSE,POINT OF CARE 282 MG/DL (70-110)
[2023-09-27 20:41] LABS: GLUCOMETER DEV NAME(LOC) BV3N.; GLUCOSE,POINT OF CARE 124 MG/DL (70-110)
[2023-09-27 20:59] VITALS: BP 132/73; PULSE 99; RESP 16; TEMP 97.8; O2SAT 99
[2023-09-28 06:21] LABS: GLUCOMETER DEV NAME(LOC) BV3N.; GLUCOSE,POINT OF CARE 93 MG/DL (70-110)
[2023-09-28] MEDS: RisperiDONE ER SUSPENSION 120 MG PRE-FILLED SYRINGE SQ SCH (09:33)
[2023-09-28 10:00] VITALS: BP 124/80; PULSE 100; RESP 17; TEMP 97.9; O2SAT 98
[2023-09-28 12:16] LABS: GLUCOMETER DEV NAME(LOC) BV3N.; GLUCOSE,POINT OF CARE 149 MG/DL (70-110)
[2023-09-28 17:21] LABS: GLUCOMETER DEV NAME(LOC) BV3N.; GLUCOSE,POINT OF CARE 263 MG/DL (70-110)
[2023-09-28 20:46] LABS: GLUCOMETER DEV NAME(LOC) BV3N.; GLUCOSE,POINT OF CARE 184 MG/DL (70-110)
[2023-09-28 23:30] VITALS: BP 123/78; PULSE 111; RESP 18; TEMP 98; O2SAT 98
[2023-09-29 00:10] VITALS: BP 129/60; PULSE 98; RESP 16; TEMP 97.8; O2SAT 98
[2023-09-29 06:31] LABS: GLUCOMETER DEV NAME(LOC) BV3N.; GLUCOSE,POINT OF CARE 169 MG/DL (70-110)
[2023-09-29 09:21] VITALS: BP 129/95; PULSE 100; RESP 17; TEMP 97.8; O2SAT 99
[2023-09-29 12:06] LABS: GLUCOMETER DEV NAME(LOC) BV3N.; GLUCOSE,POINT OF CARE 182 MG/DL (70-110)
[2023-09-29 16:36] LABS: GLUCOMETER DEV NAME(LOC) BV3N.; GLUCOSE,POINT OF CARE 217 MG/DL (70-110)
[2023-09-29 19:50] VITALS: BP 146/85; PULSE 94; RESP 16; TEMP 97.7; O2SAT 100
[2023-09-29 20:08] VITALS: BP 146/85; PULSE 94; RESP 16; TEMP 97.7; O2SAT 100
[2023-09-30 00:31] LABS: GLUCOMETER DEV NAME(LOC) BV3N.; GLUCOSE,POINT OF CARE 196 MG/DL (70-110)
[2023-09-30 06:31] LABS: GLUCOMETER DEV NAME(LOC) BV3N.; GLUCOSE,POINT OF CARE 148 MG/DL (70-110)
[2023-09-30 08:03] VITALS: BP 132/86; PULSE 85; RESP 15; TEMP 98; O2SAT 99
[2023-09-30 16:26] LABS: GLUCOMETER DEV NAME(LOC) BV3N.; GLUCOSE,POINT OF CARE 85 MG/DL (70-110)
[2023-09-30 16:26] LABS: GLUCOMETER DEV NAME(LOC) BV3N.; GLUCOSE,POINT OF CARE 258 MG/DL (70-110)
[2023-09-30 20:30] VITALS: BP 141/76; PULSE 98; RESP 16; TEMP 96.7; O2SAT 99
[2023-09-30 21:11] LABS: GLUCOMETER DEV NAME(LOC) BV3N.; GLUCOSE,POINT OF CARE 115 MG/DL (70-110)
[2023-10-01 06:31] LABS: GLUCOMETER DEV NAME(LOC) BV3N.; GLUCOSE,POINT OF CARE 96 MG/DL (70-110)
[2023-10-01 11:31] LABS: GLUCOMETER DEV NAME(LOC) BV3N.; GLUCOSE,POINT OF CARE 60 MG/DL (70-110)
[2023-10-01 11:36] LABS: GLUCOMETER DEV NAME(LOC) BV3N.; GLUCOSE,POINT OF CARE 142 MG/DL (70-110)
[2023-10-01 12:28] VITALS: BP 120/72; PULSE 84; RESP 17; TEMP 98; O2SAT 98
[2023-10-01 17:00] LABS: GLUCOMETER DEV NAME(LOC) BV3N.; GLUCOSE,POINT OF CARE 209 MG/DL (70-110)
[2023-10-01] MEDS: DIVALPROEX SODIUM 500 MG ER TABLET PO SCH (20:28)
[2023-10-01 20:46] LABS: GLUCOMETER DEV NAME(LOC) BV3N.; GLUCOSE,POINT OF CARE 186 MG/DL (70-110)
[2023-10-01 20:47] VITALS: BP 139/72; PULSE 113; RESP 18; TEMP 97.6; O2SAT 99
[2023-10-02 06:37] LABS: GLUCOMETER DEV NAME(LOC) BV3N.; GLUCOSE,POINT OF CARE 230 MG/DL (70-110)
[2023-10-02 11:46] VITALS: BP 121/80; PULSE 116; RESP 17; TEMP 97.4; O2SAT 99
[2023-10-02 11:56] LABS: GLUCOMETER DEV NAME(LOC) BV3N.; GLUCOSE,POINT OF CARE 150 MG/DL (70-110)
[2023-10-02 17:51] LABS: GLUCOMETER DEV NAME(LOC) BV3N.; GLUCOSE,POINT OF CARE 228 MG/DL (70-110)
[2023-10-02 21:06] LABS: GLUCOMETER DEV NAME(LOC) BV3N.; GLUCOSE,POINT OF CARE 175 MG/DL (70-110)
[2023-10-03 06:32] LABS: GLUCOMETER DEV NAME(LOC) BV3N.; GLUCOSE,POINT OF CARE 141 MG/DL (70-110)
[2023-10-03 10:19] VITALS: BP 108/63; PULSE 72; RESP 17; TEMP 97.6; O2SAT 100
[2023-10-03 11:47] LABS: GLUCOMETER DEV NAME(LOC) BV3N.; GLUCOSE,POINT OF CARE 202 MG/DL (70-110)
[2023-10-03 20:07] VITALS: BP 134/78; PULSE 98; RESP 20; TEMP 98; O2SAT 98
[2023-10-03 20:21] LABS: GLUCOMETER DEV NAME(LOC) BV3N.; GLUCOSE,POINT OF CARE 138 MG/DL (70-110)
[2023-10-04 07:11] LABS: GLUCOMETER DEV NAME(LOC) BV3N.; GLUCOSE,POINT OF CARE 132 MG/DL (70-110)
[2023-10-04 08:12] VITALS: BP 118/60; PULSE 77; RESP 17; TEMP 97.6; O2SAT 98
[2023-10-04 11:56] LABS: GLUCOMETER DEV NAME(LOC) BV3N.; GLUCOSE,POINT OF CARE 116 MG/DL (70-110)
[2023-10-04 20:17] LABS: GLUCOMETER DEV NAME(LOC) BV3N.; GLUCOSE,POINT OF CARE 244 MG/DL (70-110)
[2023-10-04 20:17] LABS: GLUCOMETER DEV NAME(LOC) BV3N.; GLUCOSE,POINT OF CARE 110 MG/DL (70-110)
[2023-10-04 20:24] VITALS: BP 138/86; PULSE 102; RESP 18; TEMP 98.2; O2SAT 99
[2023-10-04 22:07] VITALS: RESP 18
[2023-10-05 06:36] LABS: GLUCOMETER DEV NAME(LOC) BV3N.; GLUCOSE,POINT OF CARE 144 MG/DL (70-110)
[2023-10-05 09:00] VITALS: BP 138/95; PULSE 90; RESP 16; TEMP 97.7; O2SAT 99
[2023-10-05 11:51] LABS: GLUCOMETER DEV NAME(LOC) BV3N.; GLUCOSE,POINT OF CARE 126 MG/DL (70-110)
[2023-10-05 17:10] LABS: GLUCOMETER DEV NAME(LOC) BV3N.; GLUCOSE,POINT OF CARE 145 MG/DL (70-110)
[2023-10-05 20:33] VITALS: BP 141/79; PULSE 89; RESP 18; TEMP 98.1; O2SAT 98
[2023-10-05 21:11] LABS: GLUCOMETER DEV NAME(LOC) 3EX.2; GLUCOSE,POINT OF CARE 174 MG/DL (70-110)
[2023-10-05 23:06] VITALS: BP 149/89; PULSE 87; RESP 18; TEMP 98; O2SAT 98
[2023-10-06 06:12] LABS: GLUCOMETER DEV NAME(LOC) 3EX.2; GLUCOSE,POINT OF CARE 108 MG/DL (70-110)
[2023-10-06 07:54] LABS: COVID AG,FIA SOURCE NASAL SWAB
[2023-10-06 08:50] LABS: SARS-COV2 (COVID) ANTIGEN,FIA Negative (Negative)
[2023-10-06 11:41] LABS: GLUCOMETER DEV NAME(LOC) 3EX.2; GLUCOSE,POINT OF CARE 127 MG/DL (70-110)
[2023-10-06 15:28] VITALS: BP 121/69; PULSE 83; RESP 18; TEMP 97.5; O2SAT 97
[2023-10-06 17:16] LABS: GLUCOMETER DEV NAME(LOC) 3EX.2; GLUCOSE,POINT OF CARE 128 MG/DL (70-110)
[2023-10-06] MEDS: TUBERCULIN, PURIFIED PROTEIN DERIVATIVE 5 TU/0.1 ML SYRINGE ID ONE (20:15)
[2023-10-06 20:22] LABS: GLUCOMETER DEV NAME(LOC) 3EX.2; GLUCOSE,POINT OF CARE 64 MG/DL (70-110)
[2023-10-06 20:42] VITALS: RESP 18
[2023-10-06 21:06] LABS: GLUCOMETER DEV NAME(LOC) 3EX.2; GLUCOSE,POINT OF CARE 105 MG/DL (70-110)
[2023-10-07 06:21] LABS: GLUCOMETER DEV NAME(LOC) 3EX.2; GLUCOSE,POINT OF CARE 108 MG/DL (70-110)
[2023-10-07 07:14] LABS: BASOPHILS % (AUTO) 0.3 % (0.0-2.0); EOSINOPHILS % (AUTO) 5.3 % (1.0-6.0); HEMATOCRIT 37.8 % (41-53); HEMOGLOBIN 12.9 g/dL (13.5-17.5); LYMPHOCYTES # (AUTO) 2.1 K/uL (1.0-4.8); MEAN CORPUSCULAR HEMOGLOBIN 30.2 pg (26.0-34.0); MEAN CORPUSCULAR HGB CONC 34.1 G/dL (31.0-37.0); MEAN CORPUSCULAR VOLUME 89 fL (80-100); MONOCYTES # (AUTO) 0.5 K/uL (0.1-1.0); MONOCYTES % (AUTO) 9.3 % (2.0-9.0); NEUTROPHILS # (AUTO) 2.8 K/uL (1.8-7.7); NEUTROPHILS % (AUTO) 49.1 % (40.0-70.0); PLATELET COUNT (AUTO) 189 K/uL (150-450); RED BLOOD CELL COUNT(AUTO) 4.26 MIL/uL (4.50-5.90); RED CELL DISTRIBUTION WIDTH 13.8 % (11.5-14.5); WHITE BLOOD COUNT (AUTO) 5.7 K/uL (4.5-11.0)
[2023-10-07 07:24] LABS: HEMOGLOBIN A1C 7.6 % (3.8-5.6)
[2023-10-07 07:36] LABS: ALANINE AMINOTRANSFERASE 37 U/L (12-78); ALBUMIN 3.1 g/dL (3.4-5.0); ALKALINE PHOSPHATASE 49 U/L (46-116); ANION GAP 7 mmol/L (8-16); ASPARTATE AMINOTRANSFERASE 25 U/L (15-37); BILIRUBIN,TOTAL 0.3 mg/dL (0.1-1.0); CALCIUM, TOTAL 8.7 mg/dL (8.8-10.5); CARBON DIOXIDE 29 mmol/L (22-29); CHLORIDE 93 mmol/L (98-107); CREATININE 0.77 mg/dL (0.60-1.30); GLOMERULAR FILTR. RATE CALC > 60 mL/min (>60); GLUCOSE,RANDOM 107 mg/dL (70-110); POTASSIUM 3.9 mmol/L (3.5-5.1); SODIUM SERUM 129 mmol/L (136-145); TOTAL PROTEIN, SERUM 6.4 g/dL (6.4-8.2); UREA NITROGEN, BLOOD 13 mg/dL (7-18)
[2023-10-07 11:51] LABS: GLUCOMETER DEV NAME(LOC) 3EX.2; GLUCOSE,POINT OF CARE 153 MG/DL (70-110)
[2023-10-07 16:16] LABS: GLUCOMETER DEV NAME(LOC) 3EX.2; GLUCOSE,POINT OF CARE 107 MG/DL (70-110)
[2023-10-07 20:56] LABS: GLUCOMETER DEV NAME(LOC) 3EX.2; GLUCOSE,POINT OF CARE 159 MG/DL (70-110)
[2023-10-07 21:29] VITALS: BP 136/71; PULSE 83; RESP 18; TEMP 98.2; O2SAT 99
[2023-10-08 06:21] LABS: GLUCOMETER DEV NAME(LOC) 3EX.2; GLUCOSE,POINT OF CARE 101 MG/DL (70-110)
[2023-10-08 12:01] LABS: GLUCOMETER DEV NAME(LOC) 3E.C; GLUCOSE,POINT OF CARE 84 MG/DL (70-110)
[2023-10-08 16:20] LABS: GLUCOMETER DEV NAME(LOC) 3EX.2; GLUCOSE,POINT OF CARE 194 MG/DL (70-110)
[2023-10-08 20:58] VITALS: BP 142/81; PULSE 83; RESP 18; TEMP 98; O2SAT 98
[2023-10-08 21:22] LABS: GLUCOMETER DEV NAME(LOC) 3EX.2; GLUCOSE,POINT OF CARE 71 MG/DL (70-110)
[2023-10-09 07:06] LABS: GLUCOMETER DEV NAME(LOC) 3EX.2; GLUCOSE,POINT OF CARE 115 MG/DL (70-110)
[2023-10-09 08:34] VITALS: BP 96/63; PULSE 78; RESP 18; TEMP 97.8; O2SAT 98
[2023-10-09 11:51] LABS: GLUCOMETER DEV NAME(LOC) 3EX.2; GLUCOSE,POINT OF CARE 115 MG/DL (70-110)
[2023-10-09 17:11] LABS: GLUCOMETER DEV NAME(LOC) 3EX.2; GLUCOSE,POINT OF CARE 103 MG/DL (70-110)
[2023-10-09 21:21] LABS: GLUCOMETER DEV NAME(LOC) 3EX.2; GLUCOSE,POINT OF CARE 118 MG/DL (70-110)
[2023-10-09 21:25] VITALS: BP 153/79; PULSE 84; RESP 18; TEMP 97.8; O2SAT 100
[2023-10-10 07:01] LABS: GLUCOMETER DEV NAME(LOC) 3EX.2; GLUCOSE,POINT OF CARE 88 MG/DL (70-110)
[2023-10-10 08:20] VITALS: BP 97/58; PULSE 84; RESP 18; TEMP 97.8; O2SAT 98
[2023-10-10 11:36] LABS: GLUCOMETER DEV NAME(LOC) 3EX.2; GLUCOSE,POINT OF CARE 124 MG/DL (70-110)
[2023-10-10 16:56] LABS: GLUCOMETER DEV NAME(LOC) 3EX.2; GLUCOSE,POINT OF CARE 147 MG/DL (70-110)
[2023-10-10 20:43] VITALS: BP 125/62; PULSE 82; RESP 18; TEMP 97.5; O2SAT 98
[2023-10-10 21:26] LABS: GLUCOMETER DEV NAME(LOC) 3EX.2; GLUCOSE,POINT OF CARE 140 MG/DL (70-110)
[2023-10-11 07:11] LABS: GLUCOMETER DEV NAME(LOC) 3EX.2; GLUCOSE,POINT OF CARE 109 MG/DL (70-110)
[2023-10-11 11:36] LABS: GLUCOMETER DEV NAME(LOC) 3EX.2; GLUCOSE,POINT OF CARE 95 MG/DL (70-110)
[2023-10-11 12:05] VITALS: BP 113/68; PULSE 68; RESP 16; TEMP 97.6; O2SAT 97
[2023-10-11 16:02] LABS: GLUCOMETER DEV NAME(LOC) 3EX.2; GLUCOSE,POINT OF CARE 129 MG/DL (70-110)
[2023-10-11 20:28] LABS: GLUCOMETER DEV NAME(LOC) 3EX.2; GLUCOSE,POINT OF CARE 155 MG/DL (70-110)
[2023-10-11 20:42] VITALS: BP 141/95; PULSE 80; RESP 18; TEMP 98.1; O2SAT 97
[2023-10-12 06:32] LABS: GLUCOMETER DEV NAME(LOC) 3EX.2; GLUCOSE,POINT OF CARE 109 MG/DL (70-110)
[2023-10-12 08:14] VITALS: BP 134/71; PULSE 57; RESP 16; TEMP 97.4; O2SAT 96
[2023-10-12 11:38] LABS: GLUCOMETER DEV NAME(LOC) 3EX.2; GLUCOSE,POINT OF CARE 66 MG/DL (70-110)
[2023-10-12 13:58] VITALS: BP 132/74; PULSE 62; RESP 18; TEMP 98; O2SAT 98
[2023-10-12 14:12] LABS: GLUCOMETER DEV NAME(LOC) 3EX.2; GLUCOSE,POINT OF CARE 166 MG/DL (70-110)
[2023-10-12 16:28] LABS: GLUCOMETER DEV NAME(LOC) 3EX.2; GLUCOSE,POINT OF CARE 113 MG/DL (70-110)
[2023-10-12 20:32] LABS: GLUCOMETER DEV NAME(LOC) 3EX.2; GLUCOSE,POINT OF CARE 123 MG/DL (70-110)
[2023-10-12 20:53] VITALS: BP 126/70; PULSE 64; RESP 18; TEMP 97.8
[2023-10-13 06:22] LABS: GLUCOMETER DEV NAME(LOC) 3EX.2; GLUCOSE,POINT OF CARE 110 MG/DL (70-110)
[2023-10-13 08:30] VITALS: BP 119/69; PULSE 87; RESP 17; TEMP 98.4; O2SAT 98
[2023-10-13 10:01] VITALS: BP 104/64; PULSE 87; RESP 17; TEMP 98.4; O2SAT 98
[2023-10-13 11:38] LABS: GLUCOMETER DEV NAME(LOC) 3EX.2; GLUCOSE,POINT OF CARE 146 MG/DL (70-110)
[2023-10-13 15:27] VITALS: BP 126/74; PULSE 85; RESP 18; TEMP 97.6; O2SAT 98
[2023-10-13 17:02] LABS: GLUCOMETER DEV NAME(LOC) 3EX.2; GLUCOSE,POINT OF CARE 134 MG/DL (70-110)
[2023-10-13] MEDS: DiphenhydrAMINE HCL 50 MG/ML VIAL IM ONE (18:07)
[2023-10-13] MEDS: LORazepam 2 MG/ML VIAL IM ONE (18:08)
[2023-10-13] MEDS: ChlorproMAZINE HCL 50 MG/2 ML AMP IM ONE (18:08)
[2023-10-13 20:27] LABS: GLUCOMETER DEV NAME(LOC) 3EX.2; GLUCOSE,POINT OF CARE 180 MG/DL (70-110)
[2023-10-13 22:21] VITALS: BP 118/72; PULSE 86; RESP 18; TEMP 97.9
[2023-10-14 06:23] LABS: GLUCOMETER DEV NAME(LOC) 3EX.2; GLUCOSE,POINT OF CARE 83 MG/DL (70-110)
[2023-10-14 12:47] LABS: GLUCOMETER DEV NAME(LOC) 3EX.2; GLUCOSE,POINT OF CARE 118 MG/DL (70-110)
[2023-10-14 16:12] LABS: GLUCOMETER DEV NAME(LOC) 3EX.2; GLUCOSE,POINT OF CARE 156 MG/DL (70-110)
[2023-10-14 20:18] LABS: GLUCOMETER DEV NAME(LOC) 3EX.2; GLUCOSE,POINT OF CARE 73 MG/DL (70-110)
[2023-10-14 23:00] VITALS: BP 114/57; PULSE 89; RESP 19; TEMP 97.2; O2SAT 98
[2023-10-15 06:48] LABS: GLUCOMETER DEV NAME(LOC) 3EX.2; GLUCOSE,POINT OF CARE 107 MG/DL (70-110)
[2023-10-15 08:04] VITALS: BP 99/69; PULSE 89; RESP 17; TEMP 97.9; O2SAT 97
[2023-10-15 08:45] VITALS: BP 99/69; PULSE 89; RESP 17; TEMP 97.9; O2SAT 97
[2023-10-15 09:48] VITALS: RESP 18
[2023-10-15] MEDS ORDERED: LORazepam 2 MG/ML VIAL ONE (11:24)
[2023-10-15] MEDS ORDERED: ChlorproMAZINE HCL 50 MG/2 ML AMP ONE (11:24)
[2023-10-15] MEDS ORDERED: DiphenhydrAMINE HCL 50 MG/ML VIAL ONE (11:24)
[2023-10-15] MEDS: DiphenhydrAMINE HCL 50 MG/ML VIAL IM ONE (11:41)
[2023-10-15] MEDS: LORazepam 2 MG/ML VIAL IM ONE (11:41)
[2023-10-15] MEDS: ChlorproMAZINE HCL 50 MG/2 ML AMP IM ONE (11:41)
[2023-10-15 11:52] LABS: GLUCOMETER DEV NAME(LOC) 3EX.2; GLUCOSE,POINT OF CARE 149 MG/DL (70-110)
[2023-10-15 16:43] LABS: GLUCOMETER DEV NAME(LOC) 3EX.2; GLUCOSE,POINT OF CARE 141 MG/DL (70-110)
[2023-10-15 20:28] LABS: GLUCOMETER DEV NAME(LOC) 3EX.2; GLUCOSE,POINT OF CARE 114 MG/DL (70-110)
[2023-10-15] MEDS: DIVALPROEX SODIUM 500 MG ER TABLET PO SCH (20:33)
[2023-10-15 22:22] VITALS: BP 131/71; PULSE 93; RESP 18; TEMP 96.9; O2SAT 98
[2023-10-16 06:27] LABS: GLUCOMETER DEV NAME(LOC) 3EX.2; GLUCOSE,POINT OF CARE 120 MG/DL (70-110)
[2023-10-16 08:51] VITALS: BP 102/60; PULSE 73; RESP 17; TEMP 97.6; O2SAT 99
[2023-10-16 11:52] LABS: GLUCOMETER DEV NAME(LOC) 3EX.2; GLUCOSE,POINT OF CARE 72 MG/DL (70-110)
[2023-10-16 17:28] LABS: GLUCOMETER DEV NAME(LOC) 3EX.2; GLUCOSE,POINT OF CARE 128 MG/DL (70-110)
[2023-10-16 20:18] LABS: GLUCOMETER DEV NAME(LOC) 3EX.2; GLUCOSE,POINT OF CARE 118 MG/DL (70-110)
[2023-10-16 21:05] VITALS: BP 152/82; PULSE 78; RESP 18; TEMP 98.1; O2SAT 99
[2023-10-17 06:57] LABS: GLUCOMETER DEV NAME(LOC) 3EX.2; GLUCOSE,POINT OF CARE 146 MG/DL (70-110)
[2023-10-17 08:01] VITALS: BP 104/69; PULSE 77; RESP 17; TEMP 97.8; O2SAT 97
[2023-10-17 12:07] LABS: GLUCOMETER DEV NAME(LOC) 3EX.2; GLUCOSE,POINT OF CARE 116 MG/DL (70-110)
[2023-10-17 17:36] LABS: GLUCOMETER DEV NAME(LOC) 3EX.2; GLUCOSE,POINT OF CARE 118 MG/DL (70-110)
[2023-10-17 19:50] VITALS: BP 128/81; PULSE 81; RESP 19; TEMP 98; O2SAT 98
[2023-10-17 20:05] VITALS: BP 107/77; PULSE 78; RESP 18; TEMP 97.3; O2SAT 98
[2023-10-17 20:06] LABS: GLUCOMETER DEV NAME(LOC) 3EX.2; GLUCOSE,POINT OF CARE 134 MG/DL (70-110)
[2023-10-17 20:59] VITALS: RESP 18; TEMP 97.8
[2023-10-18 06:45] LABS: GLUCOMETER DEV NAME(LOC) 3EX.2; GLUCOSE,POINT OF CARE 147 MG/DL (70-110)
[2023-10-18 09:07] VITALS: RESP 18
[2023-10-18 11:35] LABS: GLUCOMETER DEV NAME(LOC) 3EX.2; GLUCOSE,POINT OF CARE 93 MG/DL (70-110)
[2023-10-18 16:36] LABS: GLUCOMETER DEV NAME(LOC) 3EX.2; GLUCOSE,POINT OF CARE 212 MG/DL (70-110)
[2023-10-18 20:27] VITALS: BP 134/79; PULSE 98; RESP 18; TEMP 98; O2SAT 99
[2023-10-18 20:51] LABS: GLUCOMETER DEV NAME(LOC) 3EX.2; GLUCOSE,POINT OF CARE 102 MG/DL (70-110)
[2023-10-19 06:16] LABS: GLUCOMETER DEV NAME(LOC) 3EX.2; GLUCOSE,POINT OF CARE 137 MG/DL (70-110)
[2023-10-19 08:32] VITALS: BP 114/83; PULSE 95; RESP 18; TEMP 97.4; O2SAT 98
[2023-10-19 11:36] LABS: GLUCOMETER DEV NAME(LOC) 3EX.2; GLUCOSE,POINT OF CARE 122 MG/DL (70-110)
[2023-10-19 16:45] LABS: GLUCOMETER DEV NAME(LOC) 3EX.2; GLUCOSE,POINT OF CARE 159 MG/DL (70-110)
[2023-10-19 20:00] VITALS: BP 145/76; PULSE 95; RESP 19; TEMP 97; O2SAT 98
[2023-10-19 21:20] LABS: GLUCOMETER DEV NAME(LOC) 3EX.2; GLUCOSE,POINT OF CARE 58 MG/DL (70-110)
[2023-10-19 21:41] VITALS: BP 135/81; PULSE 92; RESP 19; TEMP 97.9; O2SAT 98
[2023-10-19 22:31] LABS: GLUCOMETER DEV NAME(LOC) 3EX.2; GLUCOSE,POINT OF CARE 128 MG/DL (70-110)
[2023-10-20 06:51] LABS: GLUCOMETER DEV NAME(LOC) 3EX.2; GLUCOSE,POINT OF CARE 162 MG/DL (70-110)
[2023-10-20 09:52] VITALS: BP 107/71; PULSE 95; RESP 18; TEMP 98.2; O2SAT 98
[2023-10-20 11:45] LABS: GLUCOMETER DEV NAME(LOC) 3EX.2; GLUCOSE,POINT OF CARE 163 MG/DL (70-110)
[2023-10-20 17:46] LABS: GLUCOMETER DEV NAME(LOC) 3EX.2; GLUCOSE,POINT OF CARE 153 MG/DL (70-110)
[2023-10-20 21:23] VITALS: RESP 18
[2023-10-20 21:25] LABS: GLUCOMETER DEV NAME(LOC) 3EX.2; GLUCOSE,POINT OF CARE 117 MG/DL (70-110)
[2023-10-21 06:55] LABS: GLUCOMETER DEV NAME(LOC) 3EX.2; GLUCOSE,POINT OF CARE 99 MG/DL (70-110)
[2023-10-21 08:50] VITALS: BP 107/65; PULSE 80; RESP 18; TEMP 97.2; O2SAT 97
[2023-10-21 11:16] LABS: GLUCOMETER DEV NAME(LOC) 3EX.2; GLUCOSE,POINT OF CARE 126 MG/DL (70-110)
[2023-10-21] MEDS: MAG HYDROX/ALUMINUM HYD/SIMETH ES 30 ML SUSPENSION UDCUP PO PRN (12:16)
[2023-10-21 16:46] LABS: GLUCOMETER DEV NAME(LOC) 3EX.2; GLUCOSE,POINT OF CARE 105 MG/DL (70-110)
[2023-10-21 20:00] VITALS: BP 137/81; PULSE 86; RESP 20; TEMP 97.7; O2SAT 98
[2023-10-21 20:36] LABS: GLUCOMETER DEV NAME(LOC) 3EX.2; GLUCOSE,POINT OF CARE 147 MG/DL (70-110)
[2023-10-22 06:20] LABS: GLUCOMETER DEV NAME(LOC) 3EX.2; GLUCOSE,POINT OF CARE 200 MG/DL (70-110)
[2023-10-22 11:10] VITALS: BP 104/78; PULSE 78; RESP 17; TEMP 97.9; O2SAT 97
[2023-10-22 11:15] LABS: GLUCOMETER DEV NAME(LOC) 3EX.2; GLUCOSE,POINT OF CARE 120 MG/DL (70-110)
[2023-10-22 17:11] LABS: GLUCOMETER DEV NAME(LOC) 3EX.2; GLUCOSE,POINT OF CARE 106 MG/DL (70-110)
[2023-10-22 20:05] LABS: GLUCOMETER DEV NAME(LOC) 3EX.2; GLUCOSE,POINT OF CARE 153 MG/DL (70-110)
[2023-10-22 21:04] VITALS: RESP 18
[2023-10-23 06:36] LABS: GLUCOMETER DEV NAME(LOC) 3EX.2; GLUCOSE,POINT OF CARE 109 MG/DL (70-110)
[2023-10-23 08:28] VITALS: BP 100/69; PULSE 86; RESP 17; TEMP 97.9; O2SAT 98
[2023-10-23 11:36] LABS: GLUCOMETER DEV NAME(LOC) 3EX.2; GLUCOSE,POINT OF CARE 82 MG/DL (70-110)
[2023-10-23 16:41] LABS: GLUCOMETER DEV NAME(LOC) 3EX.2; GLUCOSE,POINT OF CARE 137 MG/DL (70-110)
[2023-10-23 20:11] LABS: GLUCOMETER DEV NAME(LOC) 3EX.2; GLUCOSE,POINT OF CARE 143 MG/DL (70-110)
[2023-10-23 21:09] VITALS: BP 105/71; PULSE 81; RESP 18; TEMP 97.5
[2023-10-24 06:40] LABS: GLUCOMETER DEV NAME(LOC) 3EX.2; GLUCOSE,POINT OF CARE 133 MG/DL (70-110)
[2023-10-24 10:54] VITALS: BP 123/77; PULSE 80; RESP 18; TEMP 98.1; O2SAT 100
[2023-10-24 12:06] LABS: GLUCOMETER DEV NAME(LOC) 3EX.2; GLUCOSE,POINT OF CARE 160 MG/DL (70-110)
[2023-10-24 17:35] LABS: GLUCOMETER DEV NAME(LOC) 3EX.2; GLUCOSE,POINT OF CARE 147 MG/DL (70-110)
[2023-10-24 20:06] LABS: GLUCOMETER DEV NAME(LOC) 3EX.2; GLUCOSE,POINT OF CARE 107 MG/DL (70-110)
[2023-10-24 22:00] VITALS: BP 145/63; PULSE 89; RESP 19; TEMP 98.4; O2SAT 98
[2023-10-25 06:25] LABS: GLUCOMETER DEV NAME(LOC) 3EX.2; GLUCOSE,POINT OF CARE 88 MG/DL (70-110)
[2023-10-25 09:30] VITALS: BP 159/97; PULSE 81; RESP 18; TEMP 97.4
[2023-10-25 11:50] LABS: GLUCOMETER DEV NAME(LOC) 3EX.2; GLUCOSE,POINT OF CARE 84 MG/DL (70-110)
[2023-10-25 16:16] LABS: GLUCOMETER DEV NAME(LOC) 3EX.2; GLUCOSE,POINT OF CARE 134 MG/DL (70-110)
[2023-10-25 20:50] LABS: GLUCOMETER DEV NAME(LOC) 3EX.2; GLUCOSE,POINT OF CARE 152 MG/DL (70-110)
[2023-10-25 21:02] VITALS: BP 150/88; PULSE 74; RESP 18; TEMP 97.7; O2SAT 98
[2023-10-26 06:41] LABS: GLUCOMETER DEV NAME(LOC) 3EX.2; GLUCOSE,POINT OF CARE 93 MG/DL (70-110)
[2023-10-26 08:47] VITALS: BP 112/69; PULSE 76; RESP 17; TEMP 97.4; O2SAT 100
[2023-10-26 11:36] LABS: GLUCOMETER DEV NAME(LOC) 3EX.2; GLUCOSE,POINT OF CARE 126 MG/DL (70-110)
[2023-10-26 17:21] LABS: GLUCOMETER DEV NAME(LOC) 3EX.2; GLUCOSE,POINT OF CARE 196 MG/DL (70-110)
[2023-10-26 20:46] LABS: GLUCOMETER DEV NAME(LOC) 3EX.2; GLUCOSE,POINT OF CARE 117 MG/DL (70-110)
[2023-10-26 20:51] VITALS: RESP 18
[2023-10-27 06:21] LABS: GLUCOMETER DEV NAME(LOC) 3EX.2; GLUCOSE,POINT OF CARE 107 MG/DL (70-110)
[2023-10-27 08:32] VITALS: BP 113/61; PULSE 83; RESP 18; TEMP 97.8; O2SAT 99
[2023-10-27 12:00] LABS: GLUCOMETER DEV NAME(LOC) 3EX.2; GLUCOSE,POINT OF CARE 178 MG/DL (70-110)
[2023-10-27 16:56] LABS: GLUCOMETER DEV NAME(LOC) 3EX.2; GLUCOSE,POINT OF CARE 172 MG/DL (70-110)
[2023-10-27 20:11] LABS: GLUCOMETER DEV NAME(LOC) 3EX.2; GLUCOSE,POINT OF CARE 76 MG/DL (70-110)
[2023-10-27 21:19] VITALS: BP 145/78; PULSE 79; RESP 18; TEMP 97.7; O2SAT 98
[2023-10-28 06:26] LABS: GLUCOMETER DEV NAME(LOC) 3EX.2; GLUCOSE,POINT OF CARE 141 MG/DL (70-110)
[2023-10-28 08:07] VITALS: BP 116/72; PULSE 81; RESP 18; TEMP 97.6; O2SAT 98
[2023-10-28 11:31] LABS: GLUCOMETER DEV NAME(LOC) 3EX.2; GLUCOSE,POINT OF CARE 111 MG/DL (70-110)
[2023-10-28] MEDS ORDERED: DEXTROSE 50%-WATER 25 GM/50 ML SYRINGE IVP PRN (12:30)
[2023-10-28 16:15] LABS: GLUCOMETER DEV NAME(LOC) 3EX.2; GLUCOSE,POINT OF CARE 198 MG/DL (70-110)
[2023-10-28] MEDS: INSULIN LISPRO 100 UNITS/ML SQ PRN (17:28)
[2023-10-28 21:21] LABS: GLUCOMETER DEV NAME(LOC) 3EX.2; GLUCOSE,POINT OF CARE 162 MG/DL (70-110)
[2023-10-29 07:06] LABS: GLUCOMETER DEV NAME(LOC) 3EX.2; GLUCOSE,POINT OF CARE 202 MG/DL (70-110)
[2023-10-29 11:30] LABS: GLUCOMETER DEV NAME(LOC) 3EX.2; GLUCOSE,POINT OF CARE 85 MG/DL (70-110)
[2023-10-29 12:04] VITALS: BP 129/75; PULSE 75; RESP 18; TEMP 98.2; O2SAT 97
[2023-10-29 16:21] LABS: GLUCOMETER DEV NAME(LOC) 3EX.2; GLUCOSE,POINT OF CARE 173 MG/DL (70-110)
[2023-10-29 21:03] VITALS: BP 122/76; PULSE 88; RESP 18; TEMP 98.7; O2SAT 97
[2023-10-29 21:25] LABS: GLUCOMETER DEV NAME(LOC) 3EX.2; GLUCOSE,POINT OF CARE 175 MG/DL (70-110)
[2023-10-30 06:55] LABS: GLUCOMETER DEV NAME(LOC) 3EX.2; GLUCOSE,POINT OF CARE 151 MG/DL (70-110)
[2023-10-30 08:10] VITALS: BP 140/90; PULSE 95; RESP 17; TEMP 97.6
[2023-10-30 12:21] LABS: GLUCOMETER DEV NAME(LOC) 3EX.2; GLUCOSE,POINT OF CARE 222 MG/DL (70-110)
[2023-10-30 17:46] LABS: GLUCOMETER DEV NAME(LOC) 3E.C; GLUCOSE,POINT OF CARE 193 MG/DL (70-110)
[2023-10-30 21:35] LABS: GLUCOMETER DEV NAME(LOC) 3E.C; GLUCOSE,POINT OF CARE 189 MG/DL (70-110)
[2023-10-30 22:27] VITALS: RESP 18
[2023-10-31 06:46] LABS: GLUCOMETER DEV NAME(LOC) 3E.C; GLUCOSE,POINT OF CARE 205 MG/DL (70-110)
[2023-10-31 08:41] VITALS: BP 104/63; PULSE 98; RESP 18; TEMP 97.5; O2SAT 98
[2023-10-31 12:00] LABS: GLUCOMETER DEV NAME(LOC) 3E.C; GLUCOSE,POINT OF CARE 80 MG/DL (70-110)
[2023-10-31 17:01] LABS: GLUCOMETER DEV NAME(LOC) 3E.C; GLUCOSE,POINT OF CARE 189 MG/DL (70-110)
[2023-10-31 20:36] VITALS: BP 130/76; PULSE 88; RESP 16; TEMP 97.7; O2SAT 97
[2023-10-31 20:36] LABS: GLUCOMETER DEV NAME(LOC) 3E.C; GLUCOSE,POINT OF CARE 145 MG/DL (70-110)
[2023-11-01 06:35] LABS: GLUCOMETER DEV NAME(LOC) 3E.C; GLUCOSE,POINT OF CARE 203 MG/DL (70-110)
[2023-11-01 08:10] VITALS: BP 118/76; PULSE 78; RESP 18; TEMP 97.5; O2SAT 97
[2023-11-01 11:55] LABS: GLUCOMETER DEV NAME(LOC) 3E.C; GLUCOSE,POINT OF CARE 128 MG/DL (70-110)
[2023-11-01 17:06] LABS: GLUCOMETER DEV NAME(LOC) 3E.C; GLUCOSE,POINT OF CARE 153 MG/DL (70-110)
[2023-11-01 20:25] LABS: GLUCOMETER DEV NAME(LOC) 3E.C; GLUCOSE,POINT OF CARE 113 MG/DL (70-110)
[2023-11-01 22:36] VITALS: BP 143/85; PULSE 89; RESP 18; TEMP 97.8; O2SAT 99
[2023-11-02 06:36] LABS: GLUCOMETER DEV NAME(LOC) 3E.C; GLUCOSE,POINT OF CARE 170 MG/DL (70-110)
[2023-11-02 08:38] VITALS: BP 133/86; PULSE 91; RESP 18; TEMP 98.1; O2SAT 98
[2023-11-02 11:10] LABS: GLUCOMETER DEV NAME(LOC) 3E.C; GLUCOSE,POINT OF CARE 152 MG/DL (70-110)
[2023-11-02] MEDS: ChlorproMAZINE HCL 50 MG/2 ML AMP IM ONE (16:12)
[2023-11-02] MEDS: LORazepam 2 MG/ML VIAL IM ONE (16:12)
[2023-11-02] MEDS: DiphenhydrAMINE HCL 50 MG/ML VIAL IM ONE (16:12)
[2023-11-02 16:41] LABS: GLUCOMETER DEV NAME(LOC) 3E.C; GLUCOSE,POINT OF CARE 239 MG/DL (70-110)
[2023-11-02 20:03] VITALS: BP 130/48; PULSE 88; RESP 18; TEMP 98; O2SAT 98
[2023-11-02 21:16] LABS: GLUCOMETER DEV NAME(LOC) 3E.C; GLUCOSE,POINT OF CARE 167 MG/DL (70-110)
[2023-11-03 06:46] LABS: GLUCOMETER DEV NAME(LOC) 3E.C; GLUCOSE,POINT OF CARE 181 MG/DL (70-110)
[2023-11-03 08:54] VITALS: RESP 18
[2023-11-03 11:55] LABS: GLUCOMETER DEV NAME(LOC) 3E.C; GLUCOSE,POINT OF CARE 93 MG/DL (70-110)
[2023-11-03 17:30] LABS: GLUCOMETER DEV NAME(LOC) 3E.C; GLUCOSE,POINT OF CARE 232 MG/DL (70-110)
[2023-11-03 20:56] LABS: GLUCOMETER DEV NAME(LOC) 3E.C; GLUCOSE,POINT OF CARE 121 MG/DL (70-110)
[2023-11-03 21:55] VITALS: BP 156/79; PULSE 103; RESP 18; TEMP 97.5; O2SAT 98
[2023-11-04 07:01] LABS: GLUCOMETER DEV NAME(LOC) 3E.C; GLUCOSE,POINT OF CARE 231 MG/DL (70-110)
[2023-11-04 08:17] VITALS: BP 137/89; PULSE 91; RESP 18; O2SAT 98
[2023-11-04 11:41] LABS: GLUCOMETER DEV NAME(LOC) 3E.C; GLUCOSE,POINT OF CARE 200 MG/DL (70-110)
[2023-11-04 16:25] LABS: GLUCOMETER DEV NAME(LOC) 3E.C; GLUCOSE,POINT OF CARE 220 MG/DL (70-110)
[2023-11-04 20:25] LABS: GLUCOMETER DEV NAME(LOC) 3E.C; GLUCOSE,POINT OF CARE 170 MG/DL (70-110)
[2023-11-04] MEDS ORDERED: DiphenhydrAMINE HCL 50 MG/ML VIAL ONE (20:42)
[2023-11-04] MEDS ORDERED: LORazepam 2 MG/ML VIAL ONE (20:42)
[2023-11-04] MEDS ORDERED: ChlorproMAZINE HCL 50 MG/2 ML AMP ONE (20:42)
[2023-11-04] MEDS: LORazepam 2 MG/ML VIAL IM ONE (21:50)
[2023-11-04] MEDS: ChlorproMAZINE HCL 50 MG/2 ML AMP IM ONE (21:50)
[2023-11-04] MEDS: DiphenhydrAMINE HCL 50 MG/ML VIAL IM ONE (21:51)
[2023-11-04 22:35] VITALS: BP 159/65; PULSE 102; RESP 18; TEMP 96.5; O2SAT 98
[2023-11-05 06:35] LABS: GLUCOMETER DEV NAME(LOC) 3E.C; GLUCOSE,POINT OF CARE 147 MG/DL (70-110)
[2023-11-05 10:44] VITALS: RESP 18; O2SAT 0
[2023-11-05 11:51] LABS: GLUCOMETER DEV NAME(LOC) 3E.C; GLUCOSE,POINT OF CARE 70 MG/DL (70-110)
[2023-11-05 17:35] LABS: GLUCOMETER DEV NAME(LOC) 3E.C; GLUCOSE,POINT OF CARE 230 MG/DL (70-110)
[2023-11-05 20:21] LABS: GLUCOMETER DEV NAME(LOC) 3E.C; GLUCOSE,POINT OF CARE 166 MG/DL (70-110)
[2023-11-05 21:29] VITALS: BP 136/80; PULSE 100; RESP 18; TEMP 97.2; O2SAT 98
[2023-11-06 06:20] LABS: GLUCOMETER DEV NAME(LOC) 3E.C; GLUCOSE,POINT OF CARE 234 MG/DL (70-110)
[2023-11-06 10:23] VITALS: BP 98/60; PULSE 80; RESP 16; TEMP 97.4; O2SAT 97
[2023-11-06 11:55] LABS: GLUCOMETER DEV NAME(LOC) 3E.C; GLUCOSE,POINT OF CARE 193 MG/DL (70-110)
[2023-11-06 16:08] VITALS: BP 136/91; PULSE 105; RESP 18
[2023-11-06 16:21] LABS: GLUCOMETER DEV NAME(LOC) 3E.C; GLUCOSE,POINT OF CARE 141 MG/DL (70-110)
[2023-11-06] MEDS ORDERED: ChlorproMAZINE HCL 50 MG/2 ML AMP ONE (18:11)
[2023-11-06] MEDS ORDERED: LORazepam 2 MG/ML VIAL ONE (18:11)
[2023-11-06] MEDS ORDERED: DiphenhydrAMINE HCL 50 MG/ML VIAL ONE (18:11)
[2023-11-06] MEDS: LORazepam 2 MG/ML VIAL IM ONE (18:21)
[2023-11-06] MEDS: DiphenhydrAMINE HCL 50 MG/ML VIAL IM ONE (18:21)
[2023-11-06] MEDS: ChlorproMAZINE HCL 50 MG/2 ML AMP IM ONE (18:21)
[2023-11-06 20:11] LABS: GLUCOMETER DEV NAME(LOC) 3E.C; GLUCOSE,POINT OF CARE 190 MG/DL (70-110)
[2023-11-06 20:32] VITALS: BP 135/89; PULSE 108; RESP 18; TEMP 97.3; O2SAT 100
[2023-11-07 06:20] LABS: GLUCOMETER DEV NAME(LOC) 3E.C; GLUCOSE,POINT OF CARE 233 MG/DL (70-110)
[2023-11-07 08:42] VITALS: BP 135/89; PULSE 102; RESP 18; TEMP 97.3; O2SAT 100
[2023-11-07 09:39] VITALS: BP 136/78; PULSE 107; RESP 18
[2023-11-07 11:56] LABS: GLUCOMETER DEV NAME(LOC) 3E.C; GLUCOSE,POINT OF CARE 134 MG/DL (70-110)
[2023-11-07 16:21] LABS: GLUCOMETER DEV NAME(LOC) 3E.C; GLUCOSE,POINT OF CARE 214 MG/DL (70-110)
[2023-11-07 20:16] LABS: GLUCOMETER DEV NAME(LOC) 3E.C; GLUCOSE,POINT OF CARE 110 MG/DL (70-110)
[2023-11-07 20:46] VITALS: BP 141/74; PULSE 98; RESP 18; TEMP 97.3; O2SAT 100
[2023-11-08 06:46] LABS: GLUCOMETER DEV NAME(LOC) 3E.C; GLUCOSE,POINT OF CARE 231 MG/DL (70-110)
[2023-11-08 08:41] VITALS: BP 101/49; PULSE 98; RESP 18; O2SAT 97
[2023-11-08 12:16] LABS: GLUCOMETER DEV NAME(LOC) 3E.C; GLUCOSE,POINT OF CARE 128 MG/DL (70-110)
[2023-11-08 15:46] LABS: GLUCOMETER DEV NAME(LOC) 3E.C; GLUCOSE,POINT OF CARE 226 MG/DL (70-110)
[2023-11-08 20:40] LABS: GLUCOMETER DEV NAME(LOC) 3E.C; GLUCOSE,POINT OF CARE 167 MG/DL (70-110)
[2023-11-08 20:47] VITALS: BP 161/95; PULSE 109; RESP 17; TEMP 97.2; O2SAT 100
[2023-11-09 06:11] LABS: GLUCOMETER DEV NAME(LOC) 3E.C; GLUCOSE,POINT OF CARE 213 MG/DL (70-110)
[2023-11-09 07:10] LABS: BASOPHILS % (AUTO) 0.5 % (0.0-2.0); EOSINOPHILS % (AUTO) 5.1 % (1.0-6.0); HEMATOCRIT 32.7 % (41-53); HEMOGLOBIN 11.3 g/dL (13.5-17.5); LYMPHOCYTES # (AUTO) 1.9 K/uL (1.0-4.8); LYMPHOCYTES % (AUTO) 30.9 % (22.0-44.0); MEAN CORPUSCULAR HEMOGLOBIN 30.7 pg (26.0-34.0); MEAN CORPUSCULAR HGB CONC 34.5 G/dL (31.0-37.0); MEAN CORPUSCULAR VOLUME 89 fL (80-100); MONOCYTES # (AUTO) 0.8 K/uL (0.1-1.0); MONOCYTES % (AUTO) 13.3 % (2.0-9.0); NEUTROPHILS # (AUTO) 3.1 K/uL (1.8-7.7); NEUTROPHILS % (AUTO) 50.2 % (40.0-70.0); PLATELET COUNT (AUTO) 162 K/uL (150-450); RED BLOOD CELL COUNT(AUTO) 3.68 MIL/uL (4.50-5.90); RED CELL DISTRIBUTION WIDTH 14.4 % (11.5-14.5); WHITE BLOOD COUNT (AUTO) 6.2 K/uL (4.5-11.0)
[2023-11-09 12:00] LABS: GLUCOMETER DEV NAME(LOC) 3E.C; GLUCOSE,POINT OF CARE 153 MG/DL (70-110)
[2023-11-09] MEDS: CloZAPine 25 MG TABLET PO SCH (12:28)
[2023-11-09 12:41] VITALS: BP 154/81; PULSE 106; RESP 18; TEMP 97.4; O2SAT 99
[2023-11-09 16:56] LABS: GLUCOMETER DEV NAME(LOC) 3E.C; GLUCOSE,POINT OF CARE 168 MG/DL (70-110)
[2023-11-09 20:25] VITALS: RESP 18
[2023-11-09 20:50] LABS: GLUCOMETER DEV NAME(LOC) 3E.C; GLUCOSE,POINT OF CARE 149 MG/DL (70-110)
[2023-11-10 05:41] LABS: GLUCOMETER DEV NAME(LOC) 3E.C; GLUCOSE,POINT OF CARE 274 MG/DL (70-110)
[2023-11-10 08:00] VITALS: RESP 17; TEMP 97.9
[2023-11-10] MEDS: CloZAPine 25 MG TABLET PO SCH ×2 (09:46→20:18)
[2023-11-10 12:00] LABS: GLUCOMETER DEV NAME(LOC) 3E.C; GLUCOSE,POINT OF CARE 200 MG/DL (70-110)
[2023-11-10 17:45] LABS: GLUCOMETER DEV NAME(LOC) 3E.C; GLUCOSE,POINT OF CARE 201 MG/DL (70-110)
[2023-11-10] MEDS: DiphenhydrAMINE HCL 50 MG/ML VIAL IM ONE (19:48)
[2023-11-10] MEDS: LORazepam 2 MG/ML VIAL IM ONE (19:48)
[2023-11-10] MEDS: ChlorproMAZINE HCL 50 MG/2 ML AMP IM ONE (19:48)
[2023-11-10 20:45] VITALS: BP 122/18; PULSE 74; RESP 18; TEMP 97.9
[2023-11-11 06:36] LABS: GLUCOMETER DEV NAME(LOC) 3E.C; GLUCOSE,POINT OF CARE 190 MG/DL (70-110)
[2023-11-11] MEDS: CloZAPine 25 MG TABLET PO SCH ×2 (08:41→20:52)
[2023-11-11 08:46] VITALS: BP 90/69; PULSE 79; RESP 17; TEMP 98.9
[2023-11-11 12:00] LABS: GLUCOMETER DEV NAME(LOC) 3E.C; GLUCOSE,POINT OF CARE 200 MG/DL (70-110)
[2023-11-11 16:30] LABS: GLUCOMETER DEV NAME(LOC) 3E.C; GLUCOSE,POINT OF CARE 220 MG/DL (70-110)
[2023-11-11 20:00] LABS: GLUCOMETER DEV NAME(LOC) 3E.C; GLUCOSE,POINT OF CARE 189 MG/DL (70-110)
[2023-11-11 21:19] VITALS: BP 114/74; PULSE 80; RESP 18; TEMP 98.2
[2023-11-12 06:51] LABS: GLUCOMETER DEV NAME(LOC) 3E.C; GLUCOSE,POINT OF CARE 213 MG/DL (70-110)
[2023-11-12] MEDS: CloZAPine 25 MG TABLET PO SCH (08:33)
[2023-11-12 08:42] VITALS: BP 116/73; PULSE 100; RESP 18; TEMP 97.6
[2023-11-12 11:46] LABS: GLUCOMETER DEV NAME(LOC) 3E.C; GLUCOSE,POINT OF CARE 96 MG/DL (70-110)
[2023-11-12 20:11] LABS: GLUCOMETER DEV NAME(LOC) 3E.C; GLUCOSE,POINT OF CARE 170 MG/DL (70-110)
[2023-11-12 20:15] LABS: GLUCOMETER DEV NAME(LOC) 3E.C; GLUCOSE,POINT OF CARE 188 MG/DL (70-110)
[2023-11-12 21:05] VITALS: BP 145/83; PULSE 98; RESP 18; TEMP 97.4; O2SAT 98
[2023-11-13 06:40] LABS: GLUCOMETER DEV NAME(LOC) 3E.C; GLUCOSE,POINT OF CARE 224 MG/DL (70-110)
[2023-11-13 12:00] LABS: GLUCOMETER DEV NAME(LOC) 3E.C; GLUCOSE,POINT OF CARE 106 MG/DL (70-110)
[2023-11-13 12:15] VITALS: RESP 17
[2023-11-13 16:56] LABS: GLUCOMETER DEV NAME(LOC) 3E.C; GLUCOSE,POINT OF CARE 234 MG/DL (70-110)
[2023-11-13 20:16] VITALS: BP 144/84; PULSE 98; RESP 19; TEMP 97.5; O2SAT 99
[2023-11-13 20:16] LABS: GLUCOMETER DEV NAME(LOC) 3E.C; GLUCOSE,POINT OF CARE 246 MG/DL (70-110)
[2023-11-14 06:40] LABS: GLUCOMETER DEV NAME(LOC) 3E.C; GLUCOSE,POINT OF CARE 140 MG/DL (70-110)
[2023-11-14 08:00] VITALS: BP 80/50; PULSE 68; RESP 16; TEMP 97.6; O2SAT 96
[2023-11-14] MEDS: CloZAPine 25 MG TABLET PO SCH (10:21)
[2023-11-14 12:00] LABS: GLUCOMETER DEV NAME(LOC) 3E.C; GLUCOSE,POINT OF CARE 209 MG/DL (70-110)
[2023-11-14 16:04] VITALS: BP 99/55; PULSE 102; RESP 17
[2023-11-14 17:41] LABS: GLUCOMETER DEV NAME(LOC) 3E.C; GLUCOSE,POINT OF CARE 251 MG/DL (70-110)
[2023-11-14 20:49] VITALS: BP 137/86; PULSE 100; RESP 18; O2SAT 99
[2023-11-14] MEDS: CloZAPine 100 MG TABLET PO SCH (21:00)
[2023-11-14 21:16] LABS: GLUCOMETER DEV NAME(LOC) 3E.C; GLUCOSE,POINT OF CARE 207 MG/DL (70-110)
[2023-11-15 06:51] LABS: GLUCOMETER DEV NAME(LOC) 3E.C; GLUCOSE,POINT OF CARE 143 MG/DL (70-110)
[2023-11-15] MEDS: CloZAPine 25 MG TABLET PO SCH (08:30)
[2023-11-15 10:09] VITALS: BP 142/90; PULSE 102; RESP 18; TEMP 97.3; O2SAT 99
[2023-11-15 11:26] LABS: GLUCOMETER DEV NAME(LOC) 3E.C; GLUCOSE,POINT OF CARE 265 MG/DL (70-110)
[2023-11-15 17:30] LABS: GLUCOMETER DEV NAME(LOC) 3E.C; GLUCOSE,POINT OF CARE 218 MG/DL (70-110)
[2023-11-15 20:51] LABS: GLUCOMETER DEV NAME(LOC) 3E.C; GLUCOSE,POINT OF CARE 135 MG/DL (70-110)
[2023-11-15 20:53] VITALS: BP 95/55; PULSE 103; RESP 18; TEMP 97.2; O2SAT 96
[2023-11-15] MEDS: CloZAPine 100 MG TABLET PO SCH (21:17)
[2023-11-16 05:31] LABS: GLUCOMETER DEV NAME(LOC) 3E.C; GLUCOSE,POINT OF CARE 170 MG/DL (70-110)
[2023-11-16] MEDS: CloZAPine 25 MG TABLET PO SCH (08:30)
[2023-11-16 09:00] VITALS: BP 138/86; PULSE 97; RESP 18; TEMP 97; O2SAT 96
[2023-11-16 09:31] LABS: BASOPHILS % (AUTO) 0.4 % (0.0-2.0); EOSINOPHILS % (AUTO) 2.1 % (1.0-6.0); HEMATOCRIT 38.3 % (41-53); HEMOGLOBIN 12.9 g/dL (13.5-17.5); LYMPHOCYTES # (AUTO) 1.6 K/uL (1.0-4.8); LYMPHOCYTES % (AUTO) 14.9 % (22.0-44.0); MEAN CORPUSCULAR HEMOGLOBIN 30.8 pg (26.0-34.0); MEAN CORPUSCULAR HGB CONC 33.6 G/dL (31.0-37.0); MEAN CORPUSCULAR VOLUME 92 fL (80-100); MONOCYTES # (AUTO) 1.3 K/uL (0.1-1.0); MONOCYTES % (AUTO) 11.6 % (2.0-9.0); NEUTROPHILS # (AUTO) 7.8 K/uL (1.8-7.7); PLATELET COUNT (AUTO) 238 K/uL (150-450); RED BLOOD CELL COUNT(AUTO) 4.18 MIL/uL (4.50-5.90); RED CELL DISTRIBUTION WIDTH 15.2 % (11.5-14.5)
[2023-11-16 12:17] LABS: GLUCOMETER DEV NAME(LOC) 3E.C; GLUCOSE,POINT OF CARE 131 MG/DL (70-110)
[2023-11-16 16:16] LABS: GLUCOMETER DEV NAME(LOC) 3E.C; GLUCOSE,POINT OF CARE 174 MG/DL (70-110)
[2023-11-16 20:25] LABS: GLUCOMETER DEV NAME(LOC) 3E.C; GLUCOSE,POINT OF CARE 281 MG/DL (70-110)
[2023-11-16] MEDS: CloZAPine 100 MG TABLET PO SCH (21:07)
[2023-11-16 22:21] VITALS: BP 115/87; PULSE 100; RESP 18; TEMP 97.2; O2SAT 98
[2023-11-17 05:36] LABS: GLUCOMETER DEV NAME(LOC) 3E.C; GLUCOSE,POINT OF CARE 321 MG/DL (70-110)
[2023-11-17] MEDS: CloZAPine 100 MG TABLET PO SCH (08:13)
[2023-11-17 09:59] VITALS: BP 148/98; PULSE 88; RESP 18; TEMP 97.1; O2SAT 98
[2023-11-17 11:15] LABS: GLUCOMETER DEV NAME(LOC) 3E.C; GLUCOSE,POINT OF CARE 130 MG/DL (70-110)
[2023-11-17] MEDS: MAGNESIUM HYDROXIDE SUSPENSION 30 ML UDCUP PO PRN (11:48)
[2023-11-17] MEDS ORDERED: ChlorproMAZINE HCL 50 MG/2 ML AMP IM PRN (14:15)
[2023-11-17 16:25] LABS: GLUCOMETER DEV NAME(LOC) 3E.C; GLUCOSE,POINT OF CARE 201 MG/DL (70-110)
[2023-11-17 20:35] VITALS: BP 130/72; PULSE 104; RESP 18; TEMP 97.1
[2023-11-17 21:05] LABS: GLUCOMETER DEV NAME(LOC) 3E.C; GLUCOSE,POINT OF CARE 150 MG/DL (70-110)
[2023-11-18 05:41] LABS: GLUCOMETER DEV NAME(LOC) 3E.C; GLUCOSE,POINT OF CARE 206 MG/DL (70-110)
[2023-11-18 08:31] VITALS: BP 120/75; PULSE 120; RESP 18; TEMP 96.5; O2SAT 96
[2023-11-18 10:56] LABS: GLUCOMETER DEV NAME(LOC) 3E.C; GLUCOSE,POINT OF CARE 279 MG/DL (70-110)
[2023-11-18 17:26] LABS: GLUCOMETER DEV NAME(LOC) 3E.C; GLUCOSE,POINT OF CARE 148 MG/DL (70-110)
[2023-11-18] MEDS ORDERED: LORazepam 2 MG/ML VIAL ONE (17:45)
[2023-11-18] MEDS ORDERED: DiphenhydrAMINE HCL 50 MG/ML VIAL ONE (17:46)
[2023-11-18] MEDS: DiphenhydrAMINE HCL 50 MG/ML VIAL IM ONE (18:01)
[2023-11-18] MEDS: LORazepam 2 MG/ML VIAL IM ONE (18:01)
[2023-11-18] MEDS: ChlorproMAZINE HCL 50 MG/2 ML AMP IM ONE (18:01)
[2023-11-18 20:13] VITALS: RESP 18
[2023-11-18 23:01] LABS: GLUCOMETER DEV NAME(LOC) 3E.C; GLUCOSE,POINT OF CARE 197 MG/DL (70-110)
[2023-11-19 05:21] LABS: GLUCOMETER DEV NAME(LOC) 3E.C; GLUCOSE,POINT OF CARE 240 MG/DL (70-110)
[2023-11-19] MEDS: CloZAPine 25 MG TABLET PO SCH (08:34)
[2023-11-19 09:07] VITALS: BP 138/80; PULSE 114; RESP 18; TEMP 96.4; O2SAT 100
[2023-11-19 11:16] LABS: GLUCOMETER DEV NAME(LOC) 3E.C; GLUCOSE,POINT OF CARE 180 MG/DL (70-110)
[2023-11-19 17:36] LABS: GLUCOMETER DEV NAME(LOC) 3E.C; GLUCOSE,POINT OF CARE 183 MG/DL (70-110)
[2023-11-19 20:42] VITALS: RESP 18
[2023-11-19] MEDS: CloZAPine 100 MG TABLET PO SCH (20:56)
[2023-11-19 21:10] LABS: GLUCOMETER DEV NAME(LOC) 3E.C; GLUCOSE,POINT OF CARE 134 MG/DL (70-110)
[2023-11-20 06:49] VITALS: RESP 18
[2023-11-20 09:13] VITALS: BP 99/56; PULSE 100; RESP 16; TEMP 97.6; O2SAT 96
[2023-11-20] MEDS: CloZAPine 25 MG TABLET PO SCH (09:32)
[2023-11-20 12:05] LABS: GLUCOMETER DEV NAME(LOC) 3E.C; GLUCOSE,POINT OF CARE 169 MG/DL (70-110)
[2023-11-20 17:11] LABS: GLUCOMETER DEV NAME(LOC) 3E.C; GLUCOSE,POINT OF CARE 118 MG/DL (70-110)
[2023-11-20 20:21] LABS: GLUCOMETER DEV NAME(LOC) 3E.C; GLUCOSE,POINT OF CARE 293 MG/DL (70-110)
[2023-11-20 20:31] VITALS: RESP 18
[2023-11-20] MEDS: CloZAPine 100 MG TABLET PO SCH (20:59)
[2023-11-21 06:46] LABS: GLUCOMETER DEV NAME(LOC) 3E.C; GLUCOSE,POINT OF CARE 165 MG/DL (70-110)
[2023-11-21 08:34] VITALS: BP 153/96; PULSE 91; RESP 18; TEMP 97.4; O2SAT 99
[2023-11-21] MEDS: CloZAPine 100 MG TABLET PO SCH ×2 (08:42→20:46)
[2023-11-21 11:45] LABS: GLUCOMETER DEV NAME(LOC) 3E.C; GLUCOSE,POINT OF CARE 196 MG/DL (70-110)
[2023-11-21 16:50] LABS: GLUCOMETER DEV NAME(LOC) 3E.C; GLUCOSE,POINT OF CARE 132 MG/DL (70-110)
[2023-11-21 20:11] LABS: GLUCOMETER DEV NAME(LOC) 3E.C; GLUCOSE,POINT OF CARE 235 MG/DL (70-110)
[2023-11-21 20:46] VITALS: BP 123/86; PULSE 89; RESP 18; TEMP 98.1; O2SAT 98
[2023-11-22 06:25] LABS: GLUCOMETER DEV NAME(LOC) 3E.C; GLUCOSE,POINT OF CARE 139 MG/DL (70-110)
[2023-11-22 08:00] VITALS: BP 113/75; PULSE 89; RESP 16; TEMP 97.6; O2SAT 99
[2023-11-22 11:06] LABS: GLUCOMETER DEV NAME(LOC) 3E.C; GLUCOSE,POINT OF CARE 180 MG/DL (70-110)
[2023-11-22 17:36] LABS: GLUCOMETER DEV NAME(LOC) 3E.C; GLUCOSE,POINT OF CARE 255 MG/DL (70-110)
[2023-11-22 20:14] VITALS: RESP 18
[2023-11-22 20:30] LABS: GLUCOMETER DEV NAME(LOC) 3E.C; GLUCOSE,POINT OF CARE 135 MG/DL (70-110)
[2023-11-23 05:21] LABS: GLUCOMETER DEV NAME(LOC) 3E.C; GLUCOSE,POINT OF CARE 121 MG/DL (70-110)
[2023-11-23 08:24] LABS: BASOPHILS % (AUTO) 0.5 % (0.0-2.0); EOSINOPHILS % (AUTO) 8.2 % (1.0-6.0); HEMATOCRIT 38.2 % (41-53); HEMOGLOBIN 12.9 g/dL (13.5-17.5); LYMPHOCYTES # (AUTO) 1.9 K/uL (1.0-4.8); LYMPHOCYTES % (AUTO) 29.5 % (22.0-44.0); MEAN CORPUSCULAR HEMOGLOBIN 30.4 pg (26.0-34.0); MEAN CORPUSCULAR HGB CONC 33.6 G/dL (31.0-37.0); MEAN CORPUSCULAR VOLUME 90 fL (80-100); MONOCYTES # (AUTO) 0.7 K/uL (0.1-1.0); MONOCYTES % (AUTO) 10.8 % (2.0-9.0); NEUTROPHILS # (AUTO) 3.2 K/uL (1.8-7.7); PLATELET COUNT (AUTO) 204 K/uL (150-450); RED BLOOD CELL COUNT(AUTO) 4.23 MIL/uL (4.50-5.90); RED CELL DISTRIBUTION WIDTH 15.6 % (11.5-14.5); WHITE BLOOD COUNT (AUTO) 6.3 K/uL (4.5-11.0)
[2023-11-23 09:00] VITALS: BP 108/63; PULSE 72; RESP 18; TEMP 97.3; O2SAT 98
[2023-11-23 11:51] LABS: GLUCOMETER DEV NAME(LOC) 3E.C; GLUCOSE,POINT OF CARE 182 MG/DL (70-110)
[2023-11-23 17:21] LABS: GLUCOMETER DEV NAME(LOC) 3E.C; GLUCOSE,POINT OF CARE 201 MG/DL (70-110)
[2023-11-23 21:25] LABS: GLUCOMETER DEV NAME(LOC) 3E.C; GLUCOSE,POINT OF CARE 183 MG/DL (70-110)
[2023-11-23 21:48] VITALS: BP 125/82; PULSE 98; RESP 18; TEMP 98.2; O2SAT 99
[2023-11-24 06:36] LABS: GLUCOMETER DEV NAME(LOC) 3E.C; GLUCOSE,POINT OF CARE 238 MG/DL (70-110)
[2023-11-24 08:30] VITALS: BP 112/68; PULSE 78; RESP 18; TEMP 97.9; O2SAT 98
[2023-11-24 11:31] LABS: GLUCOMETER DEV NAME(LOC) 3E.C; GLUCOSE,POINT OF CARE 148 MG/DL (70-110)
[2023-11-24 17:20] LABS: GLUCOMETER DEV NAME(LOC) 3E.C; GLUCOSE,POINT OF CARE 236 MG/DL (70-110)
[2023-11-24 21:02] VITALS: BP 114/70; PULSE 82; RESP 18; TEMP 97.8
[2023-11-24 21:21] LABS: GLUCOMETER DEV NAME(LOC) 3E.C; GLUCOSE,POINT OF CARE 227 MG/DL (70-110)
[2023-11-25 07:00] LABS: GLUCOMETER DEV NAME(LOC) 3E.C; GLUCOSE,POINT OF CARE 95 MG/DL (70-110)
[2023-11-25 09:26] VITALS: BP 115/83; PULSE 79; RESP 17; TEMP 97.7; O2SAT 97
[2023-11-25 12:05] LABS: GLUCOMETER DEV NAME(LOC) 3E.C; GLUCOSE,POINT OF CARE 162 MG/DL (70-110)
[2023-11-25 17:21] LABS: GLUCOMETER DEV NAME(LOC) 3E.C; GLUCOSE,POINT OF CARE 163 MG/DL (70-110)
[2023-11-25 20:16] LABS: GLUCOMETER DEV NAME(LOC) 3E.C; GLUCOSE,POINT OF CARE 211 MG/DL (70-110)
[2023-11-25 22:00] VITALS: RESP 18
[2023-11-26 06:31] LABS: GLUCOMETER DEV NAME(LOC) 3E.C; GLUCOSE,POINT OF CARE 127 MG/DL (70-110)
[2023-11-26 11:46] LABS: GLUCOMETER DEV NAME(LOC) 3E.C; GLUCOSE,POINT OF CARE 73 MG/DL (70-110)
[2023-11-26 13:39] VITALS: BP 120/75; PULSE 75; RESP 18; TEMP 98.1; O2SAT 97
[2023-11-26 17:35] LABS: GLUCOMETER DEV NAME(LOC) 3E.C; GLUCOSE,POINT OF CARE 149 MG/DL (70-110)
[2023-11-26 20:15] LABS: GLUCOMETER DEV NAME(LOC) 3E.C; GLUCOSE,POINT OF CARE 201 MG/DL (70-110)
[2023-11-26 20:31] VITALS: BP 153/84; PULSE 90; RESP 18; TEMP 97; O2SAT 98
[2023-11-27 07:51] LABS: GLUCOMETER DEV NAME(LOC) 3E.C; GLUCOSE,POINT OF CARE 142 MG/DL (70-110)
[2023-11-27 08:38] VITALS: BP 153/84; PULSE 89; RESP 18; TEMP 97.6; O2SAT 98
[2023-11-27 11:51] LABS: GLUCOMETER DEV NAME(LOC) 3E.C; GLUCOSE,POINT OF CARE 103 MG/DL (70-110)
[2023-11-27 17:10] LABS: GLUCOMETER DEV NAME(LOC) 3E.C; GLUCOSE,POINT OF CARE 145 MG/DL (70-110)
[2023-11-27 20:11] LABS: GLUCOMETER DEV NAME(LOC) 3E.C; GLUCOSE,POINT OF CARE 198 MG/DL (70-110)
[2023-11-27 20:13] VITALS: BP 151/97; PULSE 97; RESP 18; TEMP 97.3; O2SAT 98
[2023-11-28 06:35] LABS: GLUCOMETER DEV NAME(LOC) 3E.C; GLUCOSE,POINT OF CARE 188 MG/DL (70-110)
[2023-11-28 08:00] VITALS: BP 136/86; PULSE 100; RESP 19; TEMP 96.9; O2SAT 99
[2023-11-28 11:21] LABS: GLUCOMETER DEV NAME(LOC) 3E.C; GLUCOSE,POINT OF CARE 95 MG/DL (70-110)
[2023-11-28 13:03] VITALS: BP 133/79; PULSE 89; RESP 18; TEMP 97
[2023-11-28 14:03] VITALS: BP 136/79; PULSE 81; RESP 17; TEMP 97.6
[2023-11-28 17:46] LABS: GLUCOMETER DEV NAME(LOC) 3E.C; GLUCOSE,POINT OF CARE 150 MG/DL (70-110)
[2023-11-28 20:20] VITALS: BP 111/64; PULSE 87; RESP 18; TEMP 97.7; O2SAT 97
[2023-11-28 21:46] LABS: GLUCOMETER DEV NAME(LOC) 3E.C; GLUCOSE,POINT OF CARE 115 MG/DL (70-110)
[2023-11-29 07:00] LABS: GLUCOMETER DEV NAME(LOC) 3E.C; GLUCOSE,POINT OF CARE 107 MG/DL (70-110)
[2023-11-29 09:51] VITALS: BP 132/74; PULSE 79; RESP 18; TEMP 97.6; O2SAT 98
[2023-11-29 11:41] LABS: GLUCOMETER DEV NAME(LOC) 3E.C; GLUCOSE,POINT OF CARE 91 MG/DL (70-110)
[2023-11-29 19:31] LABS: GLUCOMETER DEV NAME(LOC) 3E.C; GLUCOSE,POINT OF CARE 232 MG/DL (70-110)
[2023-11-29 20:30] LABS: GLUCOMETER DEV NAME(LOC) 3E.C; GLUCOSE,POINT OF CARE 133 MG/DL (70-110)
[2023-11-29 20:45] VITALS: BP 129/77; PULSE 82; RESP 18; TEMP 97.7; O2SAT 97
[2023-11-29] MEDS: QUEtiapine FUMARATE 200 MG TABLET PO SCH (21:30)
[2023-11-30 06:05] LABS: GLUCOMETER DEV NAME(LOC) 3E.C; GLUCOSE,POINT OF CARE 161 MG/DL (70-110)
[2023-11-30 06:05] LABS: GLUCOMETER DEV NAME(LOC) 3E.C; GLUCOSE,POINT OF CARE 227 MG/DL (70-110)
[2023-11-30 08:37] LABS: BASOPHILS % (AUTO) 0.3 % (0.0-2.0); EOSINOPHILS % (AUTO) 3.3 % (1.0-6.0); HEMOGLOBIN 12.3 g/dL (13.5-17.5); LYMPHOCYTES # (AUTO) 2.3 K/uL (1.0-4.8); LYMPHOCYTES % (AUTO) 41.2 % (22.0-44.0); MEAN CORPUSCULAR HEMOGLOBIN 30.6 pg (26.0-34.0); MEAN CORPUSCULAR VOLUME 90 fL (80-100); MONOCYTES # (AUTO) 0.6 K/uL (0.1-1.0); MONOCYTES % (AUTO) 11.6 % (2.0-9.0); NEUTROPHILS # (AUTO) 2.4 K/uL (1.8-7.7); NEUTROPHILS % (AUTO) 43.6 % (40.0-70.0); PLATELET COUNT (AUTO) 154 K/uL (150-450); RED BLOOD CELL COUNT(AUTO) 4.01 MIL/uL (4.50-5.90); RED CELL DISTRIBUTION WIDTH 15.4 % (11.5-14.5); WHITE BLOOD COUNT (AUTO) 5.6 K/uL (4.5-11.0)
[2023-11-30 08:49] VITALS: BP 111/68; PULSE 95; RESP 19; TEMP 97.8; O2SAT 96
[2023-11-30 12:16] LABS: GLUCOMETER DEV NAME(LOC) 3E.C; GLUCOSE,POINT OF CARE 110 MG/DL (70-110)
[2023-11-30 17:25] LABS: GLUCOMETER DEV NAME(LOC) 3E.C; GLUCOSE,POINT OF CARE 195 MG/DL (70-110)
[2023-11-30 20:30] LABS: GLUCOMETER DEV NAME(LOC) 3E.C; GLUCOSE,POINT OF CARE 223 MG/DL (70-110)
[2023-11-30 21:16] VITALS: RESP 18
[2023-12-01 05:56] LABS: GLUCOMETER DEV NAME(LOC) 3E.C; GLUCOSE,POINT OF CARE 238 MG/DL (70-110)
[2023-12-01 08:00] VITALS: BP 142/84; PULSE 104; RESP 18; TEMP 97; O2SAT 100
[2023-12-01 11:45] LABS: GLUCOMETER DEV NAME(LOC) 3E.C; GLUCOSE,POINT OF CARE 86 MG/DL (70-110)
[2023-12-01 14:36] VITALS: BP 142/84; PULSE 104; RESP 18; TEMP 97; O2SAT 100
[2023-12-01 16:40] LABS: GLUCOMETER DEV NAME(LOC) 3E.C; GLUCOSE,POINT OF CARE 112 MG/DL (70-110)
[2023-12-01 20:15] LABS: GLUCOMETER DEV NAME(LOC) 3E.C; GLUCOSE,POINT OF CARE 224 MG/DL (70-110)
[2023-12-01 20:37] VITALS: BP 134/79; PULSE 96; RESP 18; TEMP 97.3
[2023-12-02 05:45] LABS: GLUCOMETER DEV NAME(LOC) 3E.C; GLUCOSE,POINT OF CARE 162 MG/DL (70-110)
[2023-12-02 11:50] LABS: GLUCOMETER DEV NAME(LOC) 3E.C; GLUCOSE,POINT OF CARE 136 MG/DL (70-110)
[2023-12-02 13:03] VITALS: BP 160/80; PULSE 117; RESP 18; TEMP 96.4; O2SAT 99
[2023-12-02 18:20] LABS: GLUCOMETER DEV NAME(LOC) 3E.C; GLUCOSE,POINT OF CARE 151 MG/DL (70-110)
[2023-12-02 20:30] LABS: GLUCOMETER DEV NAME(LOC) 3E.C; GLUCOSE,POINT OF CARE 94 MG/DL (70-110)
[2023-12-02 20:58] VITALS: BP 138/86; PULSE 100; RESP 18; TEMP 97.2
[2023-12-03 06:35] LABS: GLUCOMETER DEV NAME(LOC) 3E.C; GLUCOSE,POINT OF CARE 117 MG/DL (70-110)
[2023-12-03 08:50] VITALS: BP 147/91; PULSE 105; RESP 18; TEMP 97.1; O2SAT 97
[2023-12-03 11:55] LABS: GLUCOMETER DEV NAME(LOC) 3E.C; GLUCOSE,POINT OF CARE 203 MG/DL (70-110)
[2023-12-03 16:06] LABS: GLUCOMETER DEV NAME(LOC) 3E.C; GLUCOSE,POINT OF CARE 193 MG/DL (70-110)
[2023-12-03 20:15] LABS: GLUCOMETER DEV NAME(LOC) 3E.C; GLUCOSE,POINT OF CARE 141 MG/DL (70-110)
[2023-12-03 20:39] VITALS: RESP 18
[2023-12-04 05:45] LABS: GLUCOMETER DEV NAME(LOC) 3E.C; GLUCOSE,POINT OF CARE 184 MG/DL (70-110)
[2023-12-04 10:49] VITALS: BP 137/86; PULSE 110; RESP 18; TEMP 97; O2SAT 99
[2023-12-04 11:20] LABS: GLUCOMETER DEV NAME(LOC) 3E.C; GLUCOSE,POINT OF CARE 171 MG/DL (70-110)
[2023-12-04 20:16] LABS: GLUCOMETER DEV NAME(LOC) 3E.C; GLUCOSE,POINT OF CARE 207 MG/DL (70-110)
[2023-12-04] MEDS: QUEtiapine FUMARATE 100 MG TABLET PO SCH (20:24)
[2023-12-04 20:51] VITALS: RESP 18
[2023-12-05 05:41] LABS: GLUCOMETER DEV NAME(LOC) 3E.C; GLUCOSE,POINT OF CARE 132 MG/DL (70-110)
[2023-12-05 08:00] VITALS: BP 133/79; PULSE 101; RESP 17; TEMP 97.3; O2SAT 100
[2023-12-05 12:00] LABS: GLUCOMETER DEV NAME(LOC) 3E.C; GLUCOSE,POINT OF CARE 253 MG/DL (70-110)
[2023-12-05 17:10] LABS: GLUCOMETER DEV NAME(LOC) 3E.C; GLUCOSE,POINT OF CARE 161 MG/DL (70-110)
[2023-12-05 20:55] LABS: GLUCOMETER DEV NAME(LOC) 3E.C; GLUCOSE,POINT OF CARE 222 MG/DL (70-110)
[2023-12-05 21:00] VITALS: BP 114/78; PULSE 98; RESP 18; TEMP 98; O2SAT 98
[2023-12-06 06:30] LABS: GLUCOMETER DEV NAME(LOC) 3E.C; GLUCOSE,POINT OF CARE 113 MG/DL (70-110)
[2023-12-06] MEDS: CloZAPine 25 MG TABLET PO ONE (09:18)
[2023-12-06 11:50] VITALS: BP 164/98; PULSE 100; RESP 19; TEMP 97.4; O2SAT 98
[2023-12-06 12:06] LABS: GLUCOMETER DEV NAME(LOC) 3E.C; GLUCOSE,POINT OF CARE 219 MG/DL (70-110)
[2023-12-06 17:00] LABS: GLUCOMETER DEV NAME(LOC) 3E.C; GLUCOSE,POINT OF CARE 203 MG/DL (70-110)
[2023-12-06 20:22] VITALS: BP 133/77; PULSE 101; RESP 18; TEMP 97.1; O2SAT 98
[2023-12-06 20:41] LABS: GLUCOMETER DEV NAME(LOC) 3E.C; GLUCOSE,POINT OF CARE 282 MG/DL (70-110)
[2023-12-07 05:35] LABS: GLUCOMETER DEV NAME(LOC) 3E.C; GLUCOSE,POINT OF CARE 236 MG/DL (70-110)
[2023-12-07] MEDS: CloZAPine 100 MG TABLET PO SCH (08:37)
[2023-12-07 09:11] LABS: BASOPHILS % (AUTO) 0.1 % (0.0-2.0); EOSINOPHILS % (AUTO) 1.6 % (1.0-6.0); HEMATOCRIT 32.7 % (41-53); HEMOGLOBIN 11.2 g/dL (13.5-17.5); LYMPHOCYTES # (AUTO) 1.4 K/uL (1.0-4.8); LYMPHOCYTES % (AUTO) 12.4 % (22.0-44.0); MEAN CORPUSCULAR HEMOGLOBIN 30.9 pg (26.0-34.0); MEAN CORPUSCULAR HGB CONC 34.1 G/dL (31.0-37.0); MEAN CORPUSCULAR VOLUME 91 fL (80-100); MONOCYTES # (AUTO) 1.4 K/uL (0.1-1.0); MONOCYTES % (AUTO) 12.9 % (2.0-9.0); PLATELET COUNT (AUTO) 148 K/uL (150-450); RED BLOOD CELL COUNT(AUTO) 3.61 MIL/uL (4.50-5.90); RED CELL DISTRIBUTION WIDTH 15.8 % (11.5-14.5)
[2023-12-07 10:38] VITALS: BP 140/73; PULSE 87; RESP 18; TEMP 98.3; O2SAT 99
[2023-12-07 11:41] LABS: GLUCOMETER DEV NAME(LOC) 3E.C; GLUCOSE,POINT OF CARE 163 MG/DL (70-110)
[2023-12-07 17:11] LABS: GLUCOMETER DEV NAME(LOC) 3E.C; GLUCOSE,POINT OF CARE 137 MG/DL (70-110)
[2023-12-07 20:55] LABS: GLUCOMETER DEV NAME(LOC) 3E.C; GLUCOSE,POINT OF CARE 98 MG/DL (70-110)
[2023-12-08 05:35] LABS: GLUCOMETER DEV NAME(LOC) 3E.C; GLUCOSE,POINT OF CARE 241 MG/DL (70-110)
[2023-12-08 09:38] VITALS: BP 147/112; PULSE 116; RESP 16; TEMP 97.1; O2SAT 96
[2023-12-08 11:21] LABS: GLUCOMETER DEV NAME(LOC) 3E.C; GLUCOSE,POINT OF CARE 301 MG/DL (70-110)
[2023-12-08 16:30] LABS: GLUCOMETER DEV NAME(LOC) 3E.C; GLUCOSE,POINT OF CARE 130 MG/DL (70-110)
[2023-12-08 20:06] LABS: GLUCOMETER DEV NAME(LOC) 3E.C; GLUCOSE,POINT OF CARE 286 MG/DL (70-110)
[2023-12-08 21:05] VITALS: BP 136/81; PULSE 100; RESP 18; TEMP 97.4
[2023-12-09 05:41] LABS: GLUCOMETER DEV NAME(LOC) 3E.C; GLUCOSE,POINT OF CARE 165 MG/DL (70-110)
[2023-12-09 10:49] VITALS: BP 131/86; PULSE 100; RESP 18; TEMP 97.3
[2023-12-09 11:55] LABS: GLUCOMETER DEV NAME(LOC) 3E.C; GLUCOSE,POINT OF CARE 297 MG/DL (70-110)
[2023-12-09 17:45] LABS: GLUCOMETER DEV NAME(LOC) 3E.C; GLUCOSE,POINT OF CARE 218 MG/DL (70-110)
[2023-12-09 20:50] VITALS: BP 138/89; PULSE 98; RESP 18; TEMP 97.5; O2SAT 96
[2023-12-09 20:51] LABS: GLUCOMETER DEV NAME(LOC) 3E.C; GLUCOSE,POINT OF CARE 84 MG/DL (70-110)
[2023-12-10 05:41] LABS: GLUCOMETER DEV NAME(LOC) 3E.C; GLUCOSE,POINT OF CARE 250 MG/DL (70-110)
[2023-12-10 10:36] VITALS: BP 127/88; PULSE 128; RESP 20; TEMP 98; O2SAT 97
[2023-12-10 11:30] LABS: GLUCOMETER DEV NAME(LOC) 3E.C; GLUCOSE,POINT OF CARE 202 MG/DL (70-110)
[2023-12-10 17:56] LABS: GLUCOMETER DEV NAME(LOC) 3E.C; GLUCOSE,POINT OF CARE 239 MG/DL (70-110)
[2023-12-10 21:30] LABS: GLUCOMETER DEV NAME(LOC) 3E.C; GLUCOSE,POINT OF CARE 269 MG/DL (70-110)
[2023-12-11 07:31] LABS: GLUCOMETER DEV NAME(LOC) 3E.C; GLUCOSE,POINT OF CARE 116 MG/DL (70-110)
[2023-12-11 08:00] VITALS: BP 159/71; PULSE 101; RESP 17; TEMP 97.7
[2023-12-11 11:16] LABS: GLUCOMETER DEV NAME(LOC) 3E.C; GLUCOSE,POINT OF CARE 289 MG/DL (70-110)
[2023-12-11 17:51] LABS: GLUCOMETER DEV NAME(LOC) 3E.C; GLUCOSE,POINT OF CARE 305 MG/DL (70-110)
[2023-12-11 21:00] LABS: GLUCOMETER DEV NAME(LOC) 3E.C; GLUCOSE,POINT OF CARE 170 MG/DL (70-110)
[2023-12-11 21:53] VITALS: BP 97/65; PULSE 101; RESP 18; TEMP 98.2; O2SAT 97
[2023-12-12 06:10] LABS: GLUCOMETER DEV NAME(LOC) 3E.C; GLUCOSE,POINT OF CARE 276 MG/DL (70-110)
[2023-12-12 09:34] VITALS: BP 147/100; PULSE 72; RESP 18; TEMP 97.9; O2SAT 96
[2023-12-12 11:30] LABS: GLUCOMETER DEV NAME(LOC) 3E.C; GLUCOSE,POINT OF CARE 174 MG/DL (70-110)
[2023-12-12 17:50] LABS: GLUCOMETER DEV NAME(LOC) 3E.C; GLUCOSE,POINT OF CARE 188 MG/DL (70-110)
[2023-12-12 20:36] LABS: GLUCOMETER DEV NAME(LOC) 3E.C; GLUCOSE,POINT OF CARE 214 MG/DL (70-110)
[2023-12-12 22:11] VITALS: BP 148/86; PULSE 99; RESP 18; TEMP 97.8; O2SAT 100
[2023-12-13 06:10] LABS: GLUCOMETER DEV NAME(LOC) 3E.C; GLUCOSE,POINT OF CARE 170 MG/DL (70-110)
[2023-12-13 11:25] LABS: GLUCOMETER DEV NAME(LOC) 3E.C; GLUCOSE,POINT OF CARE 181 MG/DL (70-110)
[2023-12-13 16:35] LABS: GLUCOMETER DEV NAME(LOC) 3E.C; GLUCOSE,POINT OF CARE 219 MG/DL (70-110)
[2023-12-13 20:21] LABS: GLUCOMETER DEV NAME(LOC) 3E.C; GLUCOSE,POINT OF CARE 129 MG/DL (70-110)
[2023-12-13 20:32] VITALS: BP 142/87; PULSE 103; RESP 18; TEMP 97.5; O2SAT 98
[2023-12-14 06:45] LABS: GLUCOMETER DEV NAME(LOC) 3E.C; GLUCOSE,POINT OF CARE 257 MG/DL (70-110)
[2023-12-14 08:30] VITALS: BP 124/88; PULSE 108; RESP 16; TEMP 97.9; O2SAT 97
[2023-12-14 09:18] LABS: BASOPHILS % (AUTO) 0.4 % (0.0-2.0); HEMATOCRIT 36.6 % (41-53); HEMOGLOBIN 12.4 g/dL (13.5-17.5); LYMPHOCYTES # (AUTO) 1.9 K/uL (1.0-4.8); LYMPHOCYTES % (AUTO) 28.6 % (22.0-44.0); MEAN CORPUSCULAR HEMOGLOBIN 30.6 pg (26.0-34.0); MEAN CORPUSCULAR HGB CONC 33.8 G/dL (31.0-37.0); MEAN CORPUSCULAR VOLUME 91 fL (80-100); MONOCYTES # (AUTO) 0.7 K/uL (0.1-1.0); MONOCYTES % (AUTO) 11.1 % (2.0-9.0); NEUTROPHILS # (AUTO) 3.8 K/uL (1.8-7.7); NEUTROPHILS % (AUTO) 56.9 % (40.0-70.0); PLATELET COUNT (AUTO) 236 K/uL (150-450); RED BLOOD CELL COUNT(AUTO) 4.04 MIL/uL (4.50-5.90); RED CELL DISTRIBUTION WIDTH 15.7 % (11.5-14.5); WHITE BLOOD COUNT (AUTO) 6.7 K/uL (4.5-11.0)
[2023-12-14 11:15] LABS: GLUCOMETER DEV NAME(LOC) 3E.C; GLUCOSE,POINT OF CARE 180 MG/DL (70-110)
[2023-12-14 16:35] LABS: GLUCOMETER DEV NAME(LOC) 3E.C; GLUCOSE,POINT OF CARE 188 MG/DL (70-110)
[2023-12-14 21:38] VITALS: BP 107/61; PULSE 93; RESP 18; TEMP 97.8; O2SAT 97
[2023-12-14 21:40] LABS: GLUCOMETER DEV NAME(LOC) 3E.C; GLUCOSE,POINT OF CARE 265 MG/DL (70-110)
[2023-12-15 07:06] LABS: GLUCOMETER DEV NAME(LOC) 3E.C; GLUCOSE,POINT OF CARE 236 MG/DL (70-110)
[2023-12-15 08:30] VITALS: BP 99/53; PULSE 103; RESP 18; TEMP 97.8; O2SAT 96
[2023-12-15 11:36] LABS: GLUCOMETER DEV NAME(LOC) 3E.C; GLUCOSE,POINT OF CARE 219 MG/DL (70-110)
[2023-12-15 16:20] LABS: GLUCOMETER DEV NAME(LOC) 3E.C; GLUCOSE,POINT OF CARE 291 MG/DL (70-110)
[2023-12-15] MEDS: DiphenhydrAMINE HCL 50 MG/ML VIAL IM ONE (18:33)
[2023-12-15] MEDS: ChlorproMAZINE HCL 50 MG/2 ML AMP IM ONE (18:33)
[2023-12-15] MEDS: LORazepam 2 MG/ML VIAL IM ONE (18:33)
[2023-12-15 20:20] LABS: GLUCOMETER DEV NAME(LOC) 3E.C; GLUCOSE,POINT OF CARE 273 MG/DL (70-110)
[2023-12-15 21:21] VITALS: BP 135/76; PULSE 103; RESP 18; TEMP 97.7
[2023-12-16 05:45] LABS: GLUCOMETER DEV NAME(LOC) 3E.C; GLUCOSE,POINT OF CARE 203 MG/DL (70-110)
[2023-12-16 09:08] VITALS: BP 124/84; PULSE 90; RESP 18; TEMP 97.7; O2SAT 96
[2023-12-16 16:51] LABS: GLUCOMETER DEV NAME(LOC) 3E.C; GLUCOSE,POINT OF CARE 232 MG/DL (70-110)
[2023-12-16 21:00] LABS: GLUCOMETER DEV NAME(LOC) 3E.C; GLUCOSE,POINT OF CARE 237 MG/DL (70-110)
[2023-12-16 23:01] VITALS: BP 118/54; PULSE 73; RESP 18; TEMP 97.5; O2SAT 99
[2023-12-17 06:40] LABS: GLUCOMETER DEV NAME(LOC) 3E.C; GLUCOSE,POINT OF CARE 215 MG/DL (70-110)
[2023-12-17 09:29] VITALS: BP 151/101; PULSE 106; RESP 17; TEMP 97.4; O2SAT 98
[2023-12-17 11:31] LABS: GLUCOMETER DEV NAME(LOC) 3E.C; GLUCOSE,POINT OF CARE 297 MG/DL (70-110)
[2023-12-17 16:55] LABS: GLUCOMETER DEV NAME(LOC) 3E.C; GLUCOSE,POINT OF CARE 320 MG/DL (70-110)
[2023-12-17 20:10] LABS: GLUCOMETER DEV NAME(LOC) 3E.C; GLUCOSE,POINT OF CARE 366 MG/DL (70-110)
[2023-12-17 21:07] VITALS: BP 129/79; PULSE 102; RESP 18; TEMP 97.2; O2SAT 97
[2023-12-18 05:30] LABS: GLUCOMETER DEV NAME(LOC) 3E.C; GLUCOSE,POINT OF CARE 238 MG/DL (70-110)
[2023-12-18 11:50] LABS: GLUCOMETER DEV NAME(LOC) 3E.C; GLUCOSE,POINT OF CARE 201 MG/DL (70-110)
[2023-12-18 15:28] VITALS: RESP 18
[2023-12-18] MEDS: ChlorproMAZINE HCL 50 MG/2 ML AMP IM ONE (15:58)
[2023-12-18] MEDS: DiphenhydrAMINE HCL 50 MG/ML VIAL IM ONE (15:59)
[2023-12-18] MEDS: LORazepam 2 MG/ML VIAL IM ONE (15:59)
[2023-12-18 17:01] LABS: GLUCOMETER DEV NAME(LOC) 3E.C; GLUCOSE,POINT OF CARE 319 MG/DL (70-110)
[2023-12-18 20:35] LABS: GLUCOMETER DEV NAME(LOC) 3E.C; GLUCOSE,POINT OF CARE 149 MG/DL (70-110)
[2023-12-18] MEDS: CloZAPine 100 MG TABLET PO SCH (20:49)
[2023-12-18 20:52] VITALS: RESP 18
[2023-12-19 06:46] LABS: GLUCOMETER DEV NAME(LOC) 3E.C; GLUCOSE,POINT OF CARE 226 MG/DL (70-110)
[2023-12-19 08:40] VITALS: BP 140/88; PULSE 110; RESP 20; TEMP 97.4; O2SAT 99
[2023-12-19 10:11] LABS: GLUCOMETER DEV NAME(LOC) 3E.C; GLUCOSE,POINT OF CARE 301 MG/DL (70-110)
[2023-12-19 16:11] LABS: GLUCOMETER DEV NAME(LOC) 3E.C; GLUCOSE,POINT OF CARE 319 MG/DL (70-110)
[2023-12-19 20:37] VITALS: RESP 18
[2023-12-19 20:40] LABS: GLUCOMETER DEV NAME(LOC) 3E.C; GLUCOSE,POINT OF CARE 259 MG/DL (70-110)
[2023-12-20 06:10] LABS: GLUCOMETER DEV NAME(LOC) 3E.C; GLUCOSE,POINT OF CARE 280 MG/DL (70-110)
[2023-12-20 08:39] VITALS: BP 132/93; PULSE 106; RESP 18; TEMP 98.1; O2SAT 98
[2023-12-20 11:06] LABS: GLUCOMETER DEV NAME(LOC) 3E.C; GLUCOSE,POINT OF CARE 245 MG/DL (70-110)
[2023-12-20 16:25] LABS: GLUCOMETER DEV NAME(LOC) 3E.C; GLUCOSE,POINT OF CARE 197 MG/DL (70-110)
[2023-12-20 20:30] VITALS: BP 138/82; PULSE 110; RESP 18; TEMP 98.2; O2SAT 98
[2023-12-20 21:25] LABS: GLUCOMETER DEV NAME(LOC) 3E.C; GLUCOSE,POINT OF CARE 435 MG/DL (70-110)
[2023-12-20] MEDS: INSULIN LISPRO 100 UNITS/ML SQ ONE (21:53)
[2023-12-21 05:45] LABS: GLUCOMETER DEV NAME(LOC) 3E.C; GLUCOSE,POINT OF CARE 315 MG/DL (70-110)
[2023-12-21 06:36] LABS: BASOPHILS % (AUTO) 0.6 % (0.0-2.0); EOSINOPHILS % (AUTO) 4.7 % (1.0-6.0); HEMATOCRIT 32.8 % (41-53); HEMOGLOBIN 11.2 g/dL (13.5-17.5); LYMPHOCYTES # (AUTO) 2.2 K/uL (1.0-4.8); LYMPHOCYTES % (AUTO) 34.2 % (22.0-44.0); MEAN CORPUSCULAR HEMOGLOBIN 31.2 pg (26.0-34.0); MEAN CORPUSCULAR HGB CONC 34.1 G/dL (31.0-37.0); MEAN CORPUSCULAR VOLUME 92 fL (80-100); MONOCYTES # (AUTO) 0.9 K/uL (0.1-1.0); MONOCYTES % (AUTO) 14.1 % (2.0-9.0); NEUTROPHILS % (AUTO) 46.4 % (40.0-70.0); PLATELET COUNT (AUTO) 244 K/uL (150-450); RED BLOOD CELL COUNT(AUTO) 3.59 MIL/uL (4.50-5.90); RED CELL DISTRIBUTION WIDTH 15.3 % (11.5-14.5); WHITE BLOOD COUNT (AUTO) 6.4 K/uL (4.5-11.0)
[2023-12-21 08:00] VITALS: RESP 17; TEMP 98
[2023-12-21 11:25] LABS: GLUCOMETER DEV NAME(LOC) 3E.C; GLUCOSE,POINT OF CARE 194 MG/DL (70-110)
[2023-12-21 17:26] LABS: GLUCOMETER DEV NAME(LOC) 3E.C; GLUCOSE,POINT OF CARE 429 MG/DL (70-110)
[2023-12-21] MEDS: INSULIN LISPRO 100 UNITS/ML SQ ONE (18:26)
[2023-12-21 19:56] LABS: GLUCOMETER DEV NAME(LOC) 3E.C; GLUCOSE,POINT OF CARE 272 MG/DL (70-110)
[2023-12-21] MEDS: INSULIN GLARGINE,HUM.REC.ANLOG 100 UNITS/ML SQ SCH (21:24)
[2023-12-21 21:56] VITALS: BP 136/82; PULSE 101; RESP 18; TEMP 97.9
[2023-12-22 05:36] LABS: GLUCOMETER DEV NAME(LOC) 3E.C; GLUCOSE,POINT OF CARE 322 MG/DL (70-110)
[2023-12-22 11:14] VITALS: BP 146/87; PULSE 116; RESP 20; TEMP 97.2
[2023-12-22 11:15] LABS: GLUCOMETER DEV NAME(LOC) 3E.C; GLUCOSE,POINT OF CARE 167 MG/DL (70-110)
[2023-12-22 16:40] LABS: GLUCOMETER DEV NAME(LOC) 3E.C; GLUCOSE,POINT OF CARE 239 MG/DL (70-110)
[2023-12-22] MEDS ORDERED: LORazepam 2 MG/ML VIAL ONE (18:42)
[2023-12-22] MEDS ORDERED: DiphenhydrAMINE HCL 50 MG/ML VIAL ONE (18:42)
[2023-12-22] MEDS: LORazepam 2 MG/ML VIAL IM ONE (18:53)
[2023-12-22] MEDS: DiphenhydrAMINE HCL 50 MG/ML VIAL IM ONE (18:53)
[2023-12-22] MEDS: ChlorproMAZINE HCL 50 MG/2 ML AMP IM ONE (18:54)
[2023-12-22 20:30] LABS: GLUCOMETER DEV NAME(LOC) 3E.C; GLUCOSE,POINT OF CARE 340 MG/DL (70-110)
[2023-12-22 21:50] VITALS: BP 143/87; PULSE 97; RESP 18; TEMP 97.7
[2023-12-23 05:40] LABS: GLUCOMETER DEV NAME(LOC) 3E.C; GLUCOSE,POINT OF CARE 204 MG/DL (70-110)
[2023-12-23 09:37] VITALS: BP 107/67; PULSE 95; RESP 16; TEMP 97.3
[2023-12-23 12:16] LABS: GLUCOMETER DEV NAME(LOC) 3E.C; GLUCOSE,POINT OF CARE 262 MG/DL (70-110)
[2023-12-23 17:31] LABS: GLUCOMETER DEV NAME(LOC) 3E.C; GLUCOSE,POINT OF CARE 328 MG/DL (70-110)
[2023-12-23 21:26] LABS: GLUCOMETER DEV NAME(LOC) 3E.C; GLUCOSE,POINT OF CARE 253 MG/DL (70-110)
[2023-12-23 22:12] VITALS: BP 128/81; RESP 19; TEMP 97.6; O2SAT 98
[2023-12-24 06:31] LABS: GLUCOMETER DEV NAME(LOC) 3E.C; GLUCOSE,POINT OF CARE 187 MG/DL (70-110)
[2023-12-24 09:30] VITALS: BP 116/79; PULSE 90; RESP 18; TEMP 97.4; O2SAT 97
[2023-12-24 11:46] LABS: GLUCOMETER DEV NAME(LOC) 3E.C; GLUCOSE,POINT OF CARE 197 MG/DL (70-110)
[2023-12-24 17:30] LABS: GLUCOMETER DEV NAME(LOC) 3E.C; GLUCOSE,POINT OF CARE 188 MG/DL (70-110)
[2023-12-24 20:25] LABS: GLUCOMETER DEV NAME(LOC) 3E.C; GLUCOSE,POINT OF CARE 229 MG/DL (70-110)
[2023-12-24 21:39] VITALS: BP 157/85; PULSE 99; RESP 18; TEMP 97.3; O2SAT 99
[2023-12-25 05:56] LABS: GLUCOMETER DEV NAME(LOC) 3E.C; GLUCOSE,POINT OF CARE 229 MG/DL (70-110)
[2023-12-25 08:06] VITALS: BP 122/78; PULSE 93; RESP 18; TEMP 98; O2SAT 98
[2023-12-25 11:31] LABS: GLUCOMETER DEV NAME(LOC) 3E.C; GLUCOSE,POINT OF CARE 189 MG/DL (70-110)
[2023-12-25] MEDS ORDERED: METO25 PO (15:27)
[2023-12-25] MEDS ORDERED: DIVA500T69 PO (15:27)
[2023-12-25] MEDS ORDERED: GLIP5TAB15 PO (15:27)
[2023-12-25] MEDS ORDERED: OMEP20 PO (15:27)
[2023-12-25] MEDS ORDERED: METF-1211 PO (15:27)
[2023-12-25] MEDS ORDERED: CLOZ100T61 PO (15:27)
[2023-12-25] MEDS ORDERED: SIMV10TA97 PO (15:27)
[2023-12-25] MEDS ORDERED: INSLAN SQ (15:27)
[2023-12-25] MEDS ORDERED: RISP120S SQ (15:27)
[2023-12-25] MEDS ORDERED: DOCU-412 PO (15:27)
[2023-12-25 16:25] LABS: GLUCOMETER DEV NAME(LOC) 3E.C; GLUCOSE,POINT OF CARE 160 MG/DL (70-110)
[2023-12-25 20:36] LABS: GLUCOMETER DEV NAME(LOC) 3E.C; GLUCOSE,POINT OF CARE 245 MG/DL (70-110)
[2023-12-25 21:39] VITALS: BP 152/87; PULSE 76; RESP 18; TEMP 97.8; O2SAT 97
[2023-12-26 05:46] LABS: GLUCOMETER DEV NAME(LOC) 3E.C; GLUCOSE,POINT OF CARE 154 MG/DL (70-110)
[2023-12-26 08:32] VITALS: BP 117/65; PULSE 95; RESP 17; TEMP 97.4; O2SAT 96
[2023-12-26 11:06] LABS: GLUCOMETER DEV NAME(LOC) 3E.C; GLUCOSE,POINT OF CARE 132 MG/DL (70-110)
[2023-12-26 16:06] LABS: GLUCOMETER DEV NAME(LOC) 3E.C; GLUCOSE,POINT OF CARE 314 MG/DL (70-110)
[2023-12-26 20:48] VITALS: BP 122/68; PULSE 97; RESP 18; TEMP 98.2; O2SAT 98
[2023-12-26 21:06] LABS: GLUCOMETER DEV NAME(LOC) 3E.C; GLUCOSE,POINT OF CARE 90 MG/DL (70-110)
[2023-12-27 06:35] LABS: GLUCOMETER DEV NAME(LOC) 3E.C; GLUCOSE,POINT OF CARE 229 MG/DL (70-110)
[2023-12-27 06:58] LABS: COVID AG,FIA SOURCE NASAL SWAB
[2023-12-27 07:57] LABS: SARS-COV2 (COVID) ANTIGEN,FIA Negative (Negative)
[2023-12-27 10:43] VITALS: BP 131/93; PULSE 93; RESP 18; TEMP 98.4; O2SAT 97
== END 2023-12-27 11:30 | DRG 750 ==
LOC: EMS 14:55 → B3A 18:07 → B2X 05-13 10:04 → B2S 05-13 10:27 → B3A 05-19 11:19 → 3EC 10-05 17:40
PROVIDERS: ADMIT Psychiatry & Neurology Psychiatry; ATTEND Psychiatry & Neurology Psychiatry
PROC: GZHZZZZ Group Psychotherapy (ICD-10-PCS; principal; 2023-03-24)
PROC: GZ52ZZZ Individual Psychotherapy, Cognitive (ICD-10-PCS; 2023-12-12)
DX: F20.0 Paranoid schizophrenia (principal); E11.65 Type 2 diabetes mellitus with hyperglycemia; I10 Essential (primary) hypertension; J44.9 Chronic obstructive pulmonary disease, unspecified; E78.00 Pure hypercholesterolemia, unspecified; F19.10 Other psychoactive substance abuse, uncomplicated; F10.10 Alcohol abuse, uncomplicated; Z20.822 Contact with and (suspected) exposure to COVID-19; F17.210 Nicotine dependence, cigarettes, uncomplicated; Z79.4 Long term (current) use of insulin; Z79.84 Long term (current) use of oral hypoglycemic drugs; Z79.899 Other long term (current) drug therapy; Z86.73 Personal history of transient ischemic attack (TIA), and cerebral infarction without residual deficits; Z88.8 Allergy status to other drugs, medicaments and biological substances
CPT/HCPCS: 80053; 80061; 80164; 80307; 81001; 81003; 82962; 83036; 84443; 85025; 87081; 90686; 99285; G0480; J1200; J1630; J1815; J2060; J3230; J3535; Q9967

== ENCOUNTER 2023-07-21 14:01 | Emergency (ER) | payer MEDICAID, OTHER ==
[~2023-07-21] VITALS: Ht 160 cm; Wt 72.5 kg
[~2023-07-21 14:01] MED LIST changes: +ATOR40TA71 PO; +DIVA-112 PO; +DULA0.75 SQ; +INSU100I26 SQ; +INSU100V45 SQ; +LISI10TA24 PO; -METF-1211 PO; +METF-446 PO; +METO-408 PO; -METO25 PO; +QUET200T30 PO; -RISP0.5T39 PO; -SIMV-259 PO
[2023-07-21 14:25] VITALS: BP 135/79; PULSE 85; RESP 16; TEMP 98.1
== END 2023-07-21 18:10 | disposition home or self-care (01) ==
LOC: EMS 14:01
DX: S00.03XA Contusion of scalp, initial encounter (principal); F25.9 Schizoaffective disorder, unspecified; E11.9 Type 2 diabetes mellitus without complications; E78.00 Pure hypercholesterolemia, unspecified; I10 Essential (primary) hypertension; F17.210 Nicotine dependence, cigarettes, uncomplicated; F15.90 Other stimulant use, unspecified, uncomplicated; Z98.890 Other specified postprocedural states; Z88.8 Allergy status to other drugs, medicaments and biological substances; Y04.8XXA Assault by other bodily force, initial encounter; Y93.89 Activity, other specified; Y92.89 Other specified places as the place of occurrence of the external cause; Y99.8 Other external cause status
CPT/HCPCS: 70450; 71045; 82962; 99284

== ENCOUNTER 2023-08-05 20:22 | Emergency (ER) | payer OTHER ==
[~2023-08-05] VITALS: Ht 162.6 cm; Wt 63.0 kg
[2023-08-05 20:42] VITALS: TEMP 98
[2023-08-05] MEDS ORDERED: IBUPROFEN 600 MG TABLET PO ONE (22:15)
[2023-08-05] MEDS ORDERED: ACETAMINOPHEN 500 MG TABLET PO ONE (22:15)
[2023-08-05 22:41] LABS: GLUCOMETER DEV NAME(LOC) ER.6; GLUCOSE,POINT OF CARE 207 MG/DL (70-110)
[2023-08-06 01:40] VITALS: BP 131/78; PULSE 86; RESP 20
== END 2023-08-06 02:10 | disposition home or self-care (01) ==
LOC: EMS 20:25
DX: S40.011A Contusion of right shoulder, initial encounter (principal); S50.01XA Contusion of right elbow, initial encounter; S60.211A Contusion of right wrist, initial encounter; E11.9 Type 2 diabetes mellitus without complications; E78.00 Pure hypercholesterolemia, unspecified; I10 Essential (primary) hypertension; F20.9 Schizophrenia, unspecified; F17.210 Nicotine dependence, cigarettes, uncomplicated; F15.90 Other stimulant use, unspecified, uncomplicated; F11.90 Opioid use, unspecified, uncomplicated; Z98.890 Other specified postprocedural states; Z88.8 Allergy status to other drugs, medicaments and biological substances; Y08.89XA Assault by other specified means, initial encounter; Y93.89 Activity, other specified; Y92.238 Other place in hospital as the place of occurrence of the external cause; Y99.8 Other external cause status
CPT/HCPCS: 82962; 99284

== ENCOUNTER 2023-09-26 21:39 | Emergency (ER) | payer OTHER ==
[~2023-09-26] VITALS: Ht 160 cm; Wt 76.4 kg
[2023-09-26 21:53] VITALS: TEMP 98.3
[2023-09-26] MEDS: ACETAMINOPHEN 500 MG TABLET PO ONE (23:50)
[2023-09-27 00:51] VITALS: BP 110/65; PULSE 80; RESP 15
== END 2023-09-27 02:04 | disposition home or self-care (01) ==
LOC: EMS 23:33
DX: M20.011 Mallet finger of right finger(s) (principal); E11.9 Type 2 diabetes mellitus without complications; E78.00 Pure hypercholesterolemia, unspecified; I10 Essential (primary) hypertension; F20.9 Schizophrenia, unspecified; F17.210 Nicotine dependence, cigarettes, uncomplicated; F15.90 Other stimulant use, unspecified, uncomplicated; F11.90 Opioid use, unspecified, uncomplicated; Z98.890 Other specified postprocedural states; Z88.8 Allergy status to other drugs, medicaments and biological substances
CPT/HCPCS: 99284; 73080-TC; 73110-TC; 73130-TC; Z7502; Z7610

== ENCOUNTER 2024-12-24 12:13 | Emergency (ER) | payer OTHER ==
[~2024-12-24] VITALS: Ht 154.9 cm; Wt 72.7 kg
[~2024-12-24 12:13] MED LIST changes: -ATOR40TA71 PO; +CLOZ100T61 PO; -DIVA-112 PO; +DIVA500T69 PO; +DOCU-412 PO; -DULA0.75 SQ; +GLIP5TAB15 PO; -GLIP5TAB16 PO; +INSLAN SQ; -INSU100I26 SQ; -INSU100V45 SQ; -LISI10TA24 PO; +METF-1211 PO; -METF-446 PO; -METO-408 PO; +METO25 PO; +OMEP-148 PO; -QUET200T30 PO; +RISP120S SQ; +SIMV10TA97 PO
[2024-12-24 12:40] LABS: GLUCOMETER DEV NAME(LOC) AHU.; GLUCOSE,POINT OF CARE 385 MG/DL (70-110)
[2024-12-24] MEDS ORDERED: GLIP5TAB16 PO ×2 (14:00→14:05)
[2024-12-24] MEDS ORDERED: SIMV-259 PO (14:00)
[2024-12-24] MEDS ORDERED: METF-1211 PO (14:00)
[2024-12-24] MEDS ORDERED: METO25 PO (14:00)
[2024-12-24 14:02] VITALS: BP 149/86; PULSE 119; RESP 18; TEMP 98.6; O2SAT 98
== END 2024-12-24 14:14 | disposition home or self-care (01) ==
LOC: EMS 12:14
DX: E11.65 Type 2 diabetes mellitus with hyperglycemia (principal); I10 Essential (primary) hypertension; E78.00 Pure hypercholesterolemia, unspecified; F20.9 Schizophrenia, unspecified; F17.210 Nicotine dependence, cigarettes, uncomplicated; Z79.4 Long term (current) use of insulin; Z88.8 Allergy status to other drugs, medicaments and biological substances
CPT/HCPCS: 82962; 99283